=== PATIENT | male | born 1930 | race Caucasian/White ===

== ENCOUNTER 2017-06-27 14:01 | Inpatient (IN) | payer MEDICARE, BC ==
[~2017-06-27] VITALS: Ht 170.2 cm; Wt 82.6 kg
[~2017-06-27 14:01] MED LIST: ACETAMINOPHEN325 M1 PO; AMLODIPINE BESYL5 MG PO; ATORVASTATIN CA20 MG PO; BISACODYL5 MG PO; BISCOLAX10 MG RC; CARAFATE1 GM PO; CLONIDINE HCL0.1 MG PO; CYCLOBENZAPRINE10 MG PO; DOCUSATE SODIU100 M1 PO; FINASTERIDE5 MG PO; FLOMAX0.4 MG PO; HYDRALAZINE HCL10 MG PO; HYDROCODONE/AP1 EACH; ISOSORBIDE MONO30 MG PO; LASIX20 MG PO; LIDODERM700 MG TD; LOSARTAN POTASS25 MG PO; LOVENOX40 MG/0.4 SC; METFORMIN HCL500 MG PO; METOPROLOL SUCC25 MG PO; PEPCID20 MG PO; PLAVIX75 MG PO; PRAMIPEXOLE DIHY1 MG PO; RAPAFLO8 MG PO; REGLAN10 MG PO; TAMSULOSIN HCL0.4 MG PO; TRAMADOL-ACETAMI1 EA PO; TRAZODONE HCL50 MG PO; Z MIRAPEX PO; Z.0.AMLODIPINE BES2. PO; Z.0.ISOSORBIDE MONO3 PO; Z.0.JALYN 0.5-0.41 E; Z.0.LEVOTHYROXINE50 PO; Z.0.LIPITOR20 MG PO; Z.0.METOPROLOL SUCC5 PO; Z.0.PANTOPRAZOLE SO4 PO; Z.0.PLAVIX75 MG PO
--- OUTSIDE RECORDS SUMMARY | 2017-06-27 14:04 | XMS REPORT ---
Author [facility] Address Unknown Phone Unavailable Care Team Providers Care Senior Quality Assurance Specialist Name Role Phone TEETEE DIAS Unavailable Unavailable Problems This patient has no known problems. Allergies, Adverse Reactions, Alerts This patient has no known allergies or adverse reactions. Medications This patient has no known medications. Results Test Description Test Time Test Comments Text Results Atomic Results Result Comments Stress Test - Treadmill ONLY [place] [address] Patient Name : MIS ZAMBRANO MR #: [id number] : 1930 Age/Sex: 86/M Adm Physician : TEETEE DIAS MD Admit Date : Location : [place] Room/Bed : REPORT: Cardiology Report DATE OF STUDY: November 19, 2016 NUCLEAR GAITED MYOCARDIAL PERFUSION SCAN Nuclear gated myocardial perfusion scan performed as per protocol as Nuclear Medicine Lab at [facility]. Lexiscan injected 0.4 mg intravenously as a stress agent. Myoview injected of 10.8 mCi for resting protocol and 32.9 mCi for stress protocol. IMPRESSION: Normal gated myocardial perfusion scan. Left ventricular ejection fraction is 60% to 65%. Normal study. This stress test is supervised by Dr. Teetee Dias. I read only the nuclear part of the stress test. DT : 11/22/2016 16:20 Job#: [id number] Signature Date Dictated By: XAVIER WYNN MD Transcribed By: ARJUN on 11/22/16 < Electronically signed by XAVIER WYNN MD><<Signature on File>>11/24/161925 COPY TO:
--- NOTE | 2017-06-27 14:46 | Diagnostic Imaging Report ---
PROCEDURE: A single AP view of the chest. COMPARISON: Patients [facility], , CHEST SINGLE (PORTABLE), 04/24/2012, 11:19. INDICATIONS: HIGH PULSE, SOB FINDINGS: Lines/tubes: None. Lungs: The lungs are well inflated and clear. There is no evidence of pneumonia or pulmonary edema. Pleura: There is no right pleural effusion or pneumothorax. Slight blunting of the left lateral costophrenic sulcus. Heart and mediastinum: The cardiac silhouette is mildly prominent. Calcification of the aortic arch. Bones: No acute bony abnormality. IMPRESSION: 1. No acute cardiopulmonary disease. Michelle Wilkins M.D. Dictated by: Michelle Wilkins M.D. on 06/27/2017 at 14:48 Electronically approved by: Michelle Wilkins M.D. on 06/27/2017 at 14:48
[2017-06-27 15:47] LABS: BASOPHILS % 0.5 % (0.0-1.0); EOSINOPHILS # (AUTO) 0.2 (0.0-0.4); EOSINOPHILS % 2.6 % (0.0-6.0); HEMATOCRIT 31.1 % (38.2-49.6); LYMPHOCYTES # (AUTO) 0.9 (1.0-3.2); LYMPHOCYTES % 11.1 % (18.0-39.1); MEAN CORPUSCULAR HEMOGLOBIN 33.6 pg (28-32); MEAN CORPUSCULAR HGB CONC 35.4 g/dL (31-35); MEAN CORPUSCULAR VOLUME 95.1 fL (81-99); MONOCYTES # (AUTO) 0.6 (0.2-0.8); MONOCYTES % 7.2 % (4.4-11.3); NEUTROPHILS # (AUTO) 6.1 (2.1-6.9); PLATELET COUNT 197 x10e3/uL (140-360); RED BLOOD COUNT 3.27 x10e6/uL (4.3-5.7)
[2017-06-27] MEDS ORDERED: DILTIAZEM HCL 100 ML IV STA (15:48)
[2017-06-27] MEDS ORDERED: DILTIAZEM HCL 5 MG/ML 5 ML VIAL IV STA (15:48)
[2017-06-27 15:53] LABS: INR 1.07; PROTHROMBIN TIME 13.1 seconds (11.9-14.5)
[2017-06-27] MEDS ORDERED: DILTIAZEM HCL IV 5MG/ML 25 ML VIAL ONE (15:53)
[2017-06-27] MEDS ORDERED: SODIUM CHLORIDE 0.9% 100 ML ONE (15:54)
[2017-06-27 16:03] LABS: ALBUMIN 3.9 g/dL (3.5-5.0); ALBUMIN/GLOBULIN RATIO 1.1 (0.8-2.0); ANION GAP 15.2 mmol/L (8-16); CALCIUM 10.1 mg/dL (8.4-10.2); CREATININE, SERUM 1.94 mg/dL (0.72-1.25); MAGNESIUM 1.9 MG/DL (1.3-2.1); POTASSIUM 4.2 mmol/L (3.5-5.1)
[2017-06-27] MEDS: DILTIAZEM HCL IV SOLN 125 MG in SODIUM CHLORIDE 0.9% 100 ML IV SCH (16:11)
[2017-06-27 16:23] LABS: CREATINE KINASE MB 3.7 ng/mL (0-5.0); THYROID STIMULATING HORMONE 6.269 uIU/mL (0.350-4.940)
[2017-06-27] MEDS ORDERED: DIGOXIN INJ 0.25 MG/ML 2 ML AMP IV ONE (16:30)
[2017-06-27] MEDS ORDERED: ENOXAPARIN SODIUM INJ 100 MG/ML SYR SC SCH (17:00)
[2017-06-27] MEDS: ENOXAPARIN SOD INJ 60 MG/0.6 ML SYR SC SCH (18:15)
--- NOTE | 2017-06-27 23:50 | Consultation ---
DATE OF CONSULTATION: June 27, [address] Carrasco. This is an 86-year-old patient that was seen in the emergency room, where he presented with complaints of weakness and dizziness and found to be in rapid atrial flutter with variable block. The patient has been started on Cardizem and Cardizem drip and he is more comfortable resting since admission. The patient has a long history of sick sinus syndrome with anayeli-tachy arrhythmia. He also has a history of labile hypertension and coronary artery disease requiring stenting in the past. More recently, the patient is having some urinary outlet obstruction and has been followed by Dr. Ordonez and he is wearing a Garcia catheter. The patient also had previous back surgery by Dr. Keen, but continues with weakness, discomfort mainly on the left lower extremity and he is followed at pain clinic. LABORATORY DATA: Mild anemia and elevated creatinine with 1.94, BUN was 34, and the GFR is 33. The glucose also is elevated with 271. The patient's chest x-ray is negative. ALLERGIES: NONE. SOCIAL HISTORY: Negative. FAMILY HISTORY: Noncontributory. REVIEW OF SYSTEMS: Remainder of the systems reviewed. Patient denies any headache or sore throat. The patient denies any cough or sputum production. He denies any chest pain. The patient denies any abdominal pain, nausea, vomiting, diarrhea or constipation. The patient has chronic leg edema and weakness of his left lower extremity. PHYSICAL EXAMINATION VITALS: Blood pressure 110/70. NECK: Carotid pulses are present. CHEST: Clear to auscultation. CARDIOVASCULAR SYSTEM: A normal apical impulse. The rhythm is irregular with a rate of 120 per minute. There is no S3. There is no rub. ABDOMEN: Soft. There is no tenderness, organomegaly. EXTREMITIES: Pulses diminished, but present. There is mild 1 to 2+ edema. NEUROLOGIC: Does not show any motor defect on the right. There is weakness of the left lower extremity. Cranial nerves are intact. IMPRESSIONS 1. Sick sinus syndrome with bradycardia-tachycardia arrhythmia and presentation of rapid atrial flutter with variable block. 2. Coronary artery disease with history of carotid stenting. 3. Labile hypertension. 4. Peripheral neuropathy. 5. Diabetes mellitus. 6. Gastroesophageal reflux disease and irritable bowel syndrome. 7. Hyperlipidemia. 8. Benign prostatic hypertrophy. 9. Chronic low back pain. 10. Restless legs syndrome. Agree with patient the choice of medication. If not successful, we may have to use amiodarone. Also, I would like to give 1 dose of digoxin 0.25 mg. The patient has significant renal insufficiency and Digitalis has to be used cautiously. If the patient does not convert on medical therapy, then we have to also consider the possibility of using electrical cardioversion, which I will require transesophageal echocardiogram to rule out any intraatrial clot of thrombi particular looking at left atrial appendage. However, at the moment, the patient is comfortable and stable and I definitely would recommend to pursue medical therapy including anticoagulation, which also needs to be adjusted because of the patient's renal insufficiency. Thank you very much for letting me see this very nice patient. Job#: [id number] CQ
[2017-06-28] VITALS (47 sets, daily range): BP systolic 85–130; BP diastolic 38–97
[2017-06-28 00:53] LABS: CREATINE KINASE MB 3.4 ng/mL (0-5.0)
[2017-06-28] MEDS: ENOXAPARIN SOD INJ 60 MG/0.6 ML SYR SC SCH ×2 (06:45→17:49)
[2017-06-28 08:05] LABS: BASOPHILS % 0.5 % (0.0-1.0); EOSINOPHILS # (AUTO) 0.3 (0.0-0.4); EOSINOPHILS % 3.1 % (0.0-6.0); LYMPHOCYTES # (AUTO) 1.1 (1.0-3.2); LYMPHOCYTES % 13.2 % (18.0-39.1); MEAN CORPUSCULAR HEMOGLOBIN 33.1 pg (28-32); MEAN CORPUSCULAR HGB CONC 35.5 g/dL (31-35); MEAN CORPUSCULAR VOLUME 93.4 fL (81-99); MONOCYTES # (AUTO) 0.5 (0.2-0.8); MONOCYTES % 6.5 % (4.4-11.3); NEUTROPHILS # (AUTO) 6.2 (2.1-6.9); PLATELET COUNT 172 x10e3/uL (140-360); RED BLOOD COUNT 3.32 x10e6/uL (4.3-5.7); RED CELL DISTRIBUTION WIDTH 12.8 % (11.7-14.4)
[2017-06-28 08:36] LABS: CREATINE KINASE MB 3.6 ng/mL (0-5.0)
[2017-06-28 08:52] LABS: ANION GAP 14.5 mmol/L (8-16); CREATININE, SERUM 1.62 mg/dL (0.72-1.25); MAGNESIUM 1.7 MG/DL (1.3-2.1); POTASSIUM 4.5 mmol/L (3.5-5.1)
[2017-06-28] MEDS: FINASTERIDE 5 MG TAB PO SCH (08:58)
[2017-06-28] MEDS: METFORMIN HCL 500 MG TAB PO SCH ×2 (08:58→17:35)
[2017-06-28] MEDS: CLOPIDOGREL BISULFATE 75 MG TAB PO SCH (08:58)
[2017-06-28] MEDS: ISOSORBIDE MONONITRATE 30 MG TAB CR PO SCH (08:59)
[2017-06-28] MEDS: TAMSULOSIN HCL 0.4 MG CAP PO SCH (08:59)
[2017-06-28] MEDS: METOPROLOL SUCCINATE 25 MG TAB XL PO SCH ×2 (08:59→17:50)
[2017-06-28 09:15] LABS: THYROID STIMULATING HORMONE 5.445 uIU/mL (0.350-4.940)
[2017-06-28 09:31] LABS: CLARITY,URINE CLEAR (CLEAR); COLOR,URINE YELLOW (YELLOW); LEUKOCYTE ESTERASE ,URINE 2+ (NEGATIVE); NITRITE,URINE POSITIVE (NEGATIVE); PROTEIN,URINE DIPSTICK 1+ (NEGATIVE)
[2017-06-28 09:32] LABS: BILIRUBIN,URINE NEGATIVE (NEGATIVE); KETONES,URINE NEGATIVE (NEGATIVE); URINE UROBILINOGEN 0.2 mg/dL (0.2 - 1)
[2017-06-28] MEDS ORDERED: SODIUM CHLORIDE 0.9% 1000ML 1,000 ML IV SCH (09:45)
[2017-06-28 10:13] LABS: BACTERIA,URINE MANY /HPF; EPITHELIAL CELLS,URINE RARE /LPF; WBC,URINE (MAN) >50 /HPF (0-5)
[2017-06-28 10:14] LABS: AMORPHOUS SEDIMENT,URINE FEW (FEW)
[2017-06-28] MEDS ORDERED: DRONEDARONE 400 MG TAB PO SCH (11:00)
[2017-06-28] MEDS ORDERED: HYDRALAZINE HCL 10 MG TAB PO SCH (14:00)
[2017-06-28] MEDS: DILTIAZEM HCL IV SOLN 125 MG in SODIUM CHLORIDE 0.9% 100 ML IV SCH (15:04)
[2017-06-28] MEDS ORDERED: HYDRALAZINE HCL 10 MG TAB PO PRN (18:00)
[2017-06-28] MEDS: FAMOTIDINE 20 MG TAB PO SCH (19:05)
[2017-06-28] MEDS ORDERED: TRAZODONE HCL 50 MG TAB PO PRN (21:00)
[2017-06-28] MEDS: INSULIN DETEMIR 100 UNIT/ML PEN SQ SCH (21:00)
[2017-06-28] MEDS: PRAMIPEXOLE DIHYDROCHLORIDE 1 MG TAB PO SCH (21:08)
[2017-06-28] MEDS: DRONEDARONE 400 MG TAB PO SCH (21:08)
[2017-06-28] MEDS: ATORVASTATIN 20 MG TAB PO SCH (21:08)
[2017-06-29] VITALS (40 sets, daily range): BP systolic 94–143; BP diastolic 47–95
[2017-06-29] MEDS: ENOXAPARIN SOD INJ 60 MG/0.6 ML SYR SC SCH ×2 (05:41→18:14)
[2017-06-29] MEDS: FAMOTIDINE 20 MG TAB PO SCH ×2 (05:41→18:14)
[2017-06-29 06:20] LABS: BASOPHILS % 0.4 % (0.0-1.0); EOSINOPHILS # (AUTO) 0.3 (0.0-0.4); EOSINOPHILS % 2.9 % (0.0-6.0); HEMATOCRIT 30.4 % (38.2-49.6); HEMOGLOBIN 10.4 g/dL (14.0-18.0); LYMPHOCYTES # (AUTO) 1.2 (1.0-3.2); LYMPHOCYTES % 12.9 % (18.0-39.1); MEAN CORPUSCULAR HEMOGLOBIN 32.8 pg (28-32); MEAN CORPUSCULAR HGB CONC 34.2 g/dL (31-35); MEAN CORPUSCULAR VOLUME 95.9 fL (81-99); MONOCYTES # (AUTO) 0.7 (0.2-0.8); MONOCYTES % 7.9 % (4.4-11.3); NEUTROPHILS # (AUTO) 6.8 (2.1-6.9); NEUTROPHILS % 75.3 % (38.7-80.0); PLATELET COUNT 167 x10e3/uL (140-360); RED BLOOD COUNT 3.17 x10e6/uL (4.3-5.7)
[2017-06-29 06:50] LABS: ANION GAP 13.8 mmol/L (8-16); CALCIUM 9.4 mg/dL (8.4-10.2); CREATININE, SERUM 1.66 mg/dL (0.72-1.25); POTASSIUM 4.8 mmol/L (3.5-5.1)
[2017-06-29] MEDS: CLOPIDOGREL BISULFATE 75 MG TAB PO SCH (08:29)
[2017-06-29] MEDS: DRONEDARONE 400 MG TAB PO SCH ×2 (08:29→20:11)
[2017-06-29] MEDS: TAMSULOSIN HCL 0.4 MG CAP PO SCH (08:29)
[2017-06-29] MEDS: FINASTERIDE 5 MG TAB PO SCH (08:30)
[2017-06-29] MEDS: INSULIN DETEMIR 100 UNIT/ML PEN SQ SCH (08:35)
[2017-06-29] MEDS: ISOSORBIDE MONONITRATE 30 MG TAB CR PO SCH (09:00)
[2017-06-29] MEDS ORDERED: DEXTROSE 50% SYRINGE 50 ML IV PRN (11:30)
[2017-06-29] MEDS: INSULIN LISPRO 100 UNIT/1 ML 3ML VIAL SQ SCH ×3 (11:35→20:13)
--- NOTE | 2017-06-29 12:33 | History and Physical ---
PRIMARY CARE PROVIDER: Dr. Hugo Leonardo. CHIEF COMPLAINT: Palpitations. HISTORY OF PRESENT ILLNESS: Mr. Ferreira is an 86-year-old gentleman who presents with palpitations and rapid heart rate for 24 hours. REVIEW OF SYSTEMS: He denies chest pain but does complain of palpitations. He does have some dyspnea with exertion. He denies resting shortness breath or wheezing. He denies sore throat. He denies abdominal pain, nausea, vomiting or melena. Denies dysuria or flank pain. Denies rash or pruritus. Denies joint pain or swelling. He denies bleeding or bruising. He denies headache, vertigo or loss of consciousness. PAST MEDICAL HISTORY: Significant for longstanding hypertension hyperlipidemia and coronary artery disease. CURRENT MEDICATIONS: Norvasc 5 mg twice a day. Lasix 20 mg daily. Losartan 25 mg twice a day. Lipitor 20 mg at bedtime. Plavix 75 mg daily. Proscar 5 mg daily. Hydralazine 10 mg 3 times a day. Imdur 30 mg daily. Metformin 1000 mg twice daily. Metoprolol ER 12.5 mg twice daily. Mirapex 1 mg at bedtime. Flomax 0.4 mg daily. Trazodone 50 mg at bedtime. ALLERGIES: NO KNOWN DRUG ALLERGIES. PAST SURGICAL HISTORY: He had coronary stents placed after an [place] [address] Simmons. He also had an MN and 2 stents placed in 2002 in [place]. At that time, he also had a right renal artery stent placed and he had back surgery 2 years ago. FAMILY HISTORY: Remarkable for hypertension. SOCIAL HISTORY: The patient is . Pashto is his primary language. He does not smoke, drink or use illegal drugs. He is generally independently functioning. PHYSICAL EXAM: PSYCHIATRIC: He is alert and oriented times 3 with normal mood and affect. CONSTITUTIONAL: He has a normal body habitus. Is in no acute distress. VITAL SIGNS: Blood pressure initially 94/55, currently 99/66. Pulse initially 120 and irregularly irregular and currently 70 and irregularly irregular. Respiratory rate 20. O2 sat 98%. Temperature 98.1. HEENT: Head is atraumatic. His eyes are anicteric with clear conjunctivae. Ears nares are without erythema or discharge. Oropharynx is clear. NECK: Is supple with no mass or thyromegaly. LYMPHATIC SYSTEM: He has no palpable cervical, axillary or inguinal adenopathy. CARDIOVASCULAR: His heart has an irregularly irregular rhythm, occasionally tachycardic with no without murmur or extra heart sound. He has no carotid bruit. No peripheral edema. Weak dorsal pedal pulses. RESPIRATORY: Clear to auscultation and percussion with normal respiratory effort. GASTROINTESTINAL: Abdomen is soft without organomegaly, masses or tenderness. He has normal bowel sounds present. CUTANEOUS: Skin is warm and dry to touch with no rash or skin breakdown. MUSCULOSKELETAL: Joints are in normal alignment without erythema or swelling. Has no calf tenderness. NEUROLOGIC: Exam is nonfocal with intact cranial nerves and no motor or sensory deficits. DIAGNOSTIC STUDIES: Chest x-ray shows no acute disease. UA shows greater than 50 white cells, 6 to 10 red cells and many bacteria. His echocardiogram that showed an ejection fraction of 50% to 55%. Chamber sizes appear normal, unofficial reading. His BNP is 80.4. Troponin is 0.031, 0.041. His chemistry initially showed normal electrolytes. CO2 27. Creatinine 1.94. BUN 34 for a GFR of 33. Glucose 271. Calcium 10.1. After hydration overnight. current chemistry shows normal electrolytes. CO2 22. Creatinine 1.62. BUN 29 for a GFR of 41. Calcium 10.0. Glucose 146. Magnesium 1.7. TSH 5.445. Transaminases, bilirubin and alkaline phos are normal. CBC shows a white count of 8.1 with 76% neutrophils. Hemoglobin 11.0, hematocrit 31.0 and platelet count 172,000. Pro time is 13.1 with a normal INR. . IMPRESSION AND PLAN: 1. New onset atrial fibrillation, atrial flutter with rapid ventricular response. The patient is admitted to the ICU. Will do serial cardiac enzymes to rule out myocardial infarction. Check his thyroid function. Will start the patient on IV Cardizem drip for rate control. Multaq also has been started p.o. Cardiology has been consulted and it was their intervention for IV Cardizem and p.o. Multaq. Patient will also be started on weight-based Lovenox q.12 hours. 2. Hypertension complicated by coronary artery disease and chronic kidney disease stage 3. Will continue the patient's metoprolol and Imdur. Will hold the amlodipine and losartan at this time and make the hydralazine as needed. 3. Type 2 diabetes that appears to be reasonably well controlled. Patient will continue on a diabetic diet and sliding scale insulin as noted. Will also put on some Levemir like 15 units twice a day. The type 2 diabetes is complicated by chronic kidney disease stage 3. 4. For prophylaxis, the patient will be on Lovenox for DVT prophylaxis and Pepcid for GI prophylaxis. Job#: [id number] HEIDI
[2017-06-29] MEDS: DILTIAZEM HCL IV SOLN 125 MG in SODIUM CHLORIDE 0.9% 100 ML IV SCH (16:30)
--- NOTE | 2017-06-29 17:54 | Diagnostic Imaging Report ---
PROCEDURE:US RETROPERITONEAL ( KIDNEY ). COMPARISON:Patients [facility], CT, CT ABDOMEN/PELVIS WO, 04/24/2012, 11:53. Patients [facility], MR, MRI SPINE THORACIC WO, 07/21/2016, 14:27. INDICATIONS:CKD TECHNIQUE: Contreras-scale and color sonographic images of the bilateral kidneys and bladder where obtained in transverse and longitudinal planes. FINDINGS: RIGHT KIDNEY: Measures 9.7 cm in length Cysts: None Solid masses: None Stones: None Hydronephrosis: None Echogenicity: Increased LEFT KIDNEY: Measures 10.2 cm in length Cysts: Lower pole unilocular cyst measures 4.9 x 6.2 [address], this measured 7.0 x 8.2 cm. Calcifications identified on CT within the cysts are not visible sonographically. Solid masses: None Stones: None Hydronephrosis: None Echogenicity: Increased Bladder: Bladder around a Garcia catheter Prostate: Not visualized. Survey images of the liver demonstrate no focal abnormality. CONCLUSION: 1. Single cyst in the lower pole of the left kidney has been present since at least 2012. 2. Increased renal echotexture consistent medical renal disease. No hydronephrosis. Dictated by: Que Baxter M.D. on 06/29/2017 at 17:55 Electronically approved by: Que Baxter M.D. on 06/29/2017 at 17:55
--- NOTE | 2017-06-29 18:05 | Diagnostic Imaging Report ---
PROCEDURE: RENAL DOPPLER ULTRASOUND COMPARISON:Patients [facility], US, US RETROPERITONEAL ( KIDNEY )., 06/29/2017, 11:52. INDICATIONS:ATHEROSCLEROSIS OF RENAL ARTERY history of left renal stent placed in 1998 FINDINGS: Multiple sagittal and axial images of the right and left kidneys were obtained. RIGHT KIDNEY: The right kidney measures 9.7 cm. The echotexture is increased There are no masses, hydronephrosis or calculi. The highest right main renal artery PSV is 163 cm/sec. The highest right hilar artery PSV is 51.5 cm/sec. LEFT KIDNEY: The left kidney measures 10.2 cm. The echotexture is increased. There are no masses, hydronephrosis or calculi. The highest left main renal artery PSV is 128 cm/sec. The highest left hilar artery PSV is 88.6 cm/sec. The abdominal aorta PSV is 144 cm/sec. The right renal artery/aorta ratio is 1.1. The left renal artery/aorta ratio is 0.89. The right and left renal veins are patent. The bladder is collapsed right Garcia catheter.. CONCLUSION: No hemodynamically significant renal artery stenosis, although right renal artery velocities are higher than the left. Dictated by: Que Baxter M.D. on 06/29/2017 at 18:06 Electronically approved by: Que Baxter M.D. on 06/29/2017 at 18:06
[2017-06-29] MEDS: PRAMIPEXOLE DIHYDROCHLORIDE 1 MG TAB PO SCH (20:11)
[2017-06-29] MEDS: ATORVASTATIN 20 MG TAB PO SCH (20:11)
[2017-06-30] VITALS (58 sets, daily range): BP systolic 73–138; BP diastolic 43–89
[2017-06-30 06:09] LABS: BASOPHILS # (AUTO) 0.1 (0.0-0.1); BASOPHILS % 0.7 % (0.0-1.0); EOSINOPHILS # (AUTO) 0.3 (0.0-0.4); EOSINOPHILS % 4.2 % (0.0-6.0); HEMATOCRIT 29.4 % (38.2-49.6); HEMOGLOBIN 10.2 g/dL (14.0-18.0); LYMPHOCYTES # (AUTO) 1.1 (1.0-3.2); LYMPHOCYTES % 15.4 % (18.0-39.1); MEAN CORPUSCULAR HGB CONC 34.7 g/dL (31-35); MEAN CORPUSCULAR VOLUME 95.1 fL (81-99); MONOCYTES # (AUTO) 0.6 (0.2-0.8); MONOCYTES % 9.2 % (4.4-11.3); NEUTROPHILS # (AUTO) 4.8 (2.1-6.9); NEUTROPHILS % 70.1 % (38.7-80.0); PLATELET COUNT 164 x10e3/uL (140-360); RED BLOOD COUNT 3.09 x10e6/uL (4.3-5.7); RED CELL DISTRIBUTION WIDTH 12.9 % (11.7-14.4)
[2017-06-30 06:38] LABS: ANION GAP 14.7 mmol/L (8-16); CALCIUM 9.6 mg/dL (8.4-10.2); CREATININE, SERUM 1.71 mg/dL (0.72-1.25); MAGNESIUM 2.3 MG/DL (1.3-2.1); POTASSIUM 4.7 mmol/L (3.5-5.1)
[2017-06-30] MEDS: INSULIN LISPRO 100 UNIT/1 ML 3ML VIAL SQ SCH ×4 (08:04→21:04)
[2017-06-30] MEDS: FAMOTIDINE 20 MG TAB PO SCH ×2 (08:19→17:16)
[2017-06-30] MEDS: TAMSULOSIN HCL 0.4 MG CAP PO SCH (08:19)
[2017-06-30] MEDS: ASPIRIN 81 MG ENTERIC COATED PO SCH (08:19)
[2017-06-30] MEDS: APIXAB 2.5 MG TABLET PO SCH ×2 (08:19→17:16)
[2017-06-30] MEDS: INSULIN DETEMIR 100 UNIT/ML PEN SQ SCH (08:20)
[2017-06-30] MEDS: CLOPIDOGREL BISULFATE 75 MG TAB PO SCH (08:20)
[2017-06-30] MEDS: FINASTERIDE 5 MG TAB PO SCH (08:20)
[2017-06-30] MEDS: DRONEDARONE 400 MG TAB PO SCH ×2 (08:20→20:53)
[2017-06-30] MEDS: ISOSORBIDE MONONITRATE 30 MG TAB CR PO SCH (08:21)
[2017-06-30] MEDS ORDERED: ASPIRIN 325 MG TAB EC PO SCH (09:00)
[2017-06-30] MEDS: DILTIAZEM HCL IV SOLN 125 MG in SODIUM CHLORIDE 0.9% 100 ML IV SCH (11:19)
[2017-06-30] MEDS ORDERED: CYMBALTA30 MG (16:27)
[2017-06-30] MEDS ORDERED: ACETAMINOPHEN 325 MG TAB PO PRN (16:30)
[2017-06-30 19:44] LABS: BILIRUBIN,URINE NEGATIVE (NEGATIVE); CLARITY,URINE TURBID (CLEAR); COLOR,URINE YELLOW (YELLOW); KETONES,URINE NEGATIVE (NEGATIVE); LEUKOCYTE ESTERASE ,URINE 2+ (NEGATIVE); NITRITE,URINE NEGATIVE (NEGATIVE); PROTEIN,URINE DIPSTICK 1+ (NEGATIVE); URINE UROBILINOGEN 0.2 mg/dL (0.2 - 1)
[2017-06-30 19:55] LABS: WBC,URINE (MAN) >50 /HPF (0-5)
[2017-06-30 19:56] LABS: BACTERIA,URINE MANY /HPF; EPITHELIAL CELLS,URINE RARE /LPF; MUCUS,URINE FEW (RARE)
[2017-06-30] MEDS: DULOXETINE HCL 30 MG DELAYED RELEASE PO SCH (20:53)
[2017-06-30] MEDS: ATORVASTATIN 20 MG TAB PO SCH (20:53)
[2017-06-30] MEDS: PRAMIPEXOLE DIHYDROCHLORIDE 1 MG TAB PO SCH (20:53)
[2017-07-01] VITALS (49 sets, daily range): BP systolic 74–147; BP diastolic 48–100
[2017-07-01] MEDS: INSULIN LISPRO 100 UNIT/1 ML 3ML VIAL SQ SCH ×4 (07:28→20:41)
[2017-07-01] MEDS ORDERED: DILTIAZEM HCL IV 5MG/ML 25 ML VIAL ONE (07:59)
[2017-07-01] MEDS: DEXTROSE 5%/0.45% SOD CHL 1,000 ML IV SCH (08:01)
[2017-07-01] MEDS: FAMOTIDINE 20 MG TAB PO SCH ×2 (08:01→17:26)
[2017-07-01] MEDS: APIXAB 2.5 MG TABLET PO SCH ×2 (08:02→17:26)
[2017-07-01] MEDS: TAMSULOSIN HCL 0.4 MG CAP PO SCH (08:02)
[2017-07-01] MEDS: ASPIRIN 81 MG ENTERIC COATED PO SCH (08:02)
[2017-07-01] MEDS: DULOXETINE HCL 30 MG DELAYED RELEASE PO SCH ×2 (08:02→17:26)
[2017-07-01] MEDS: ISOSORBIDE MONONITRATE 30 MG TAB CR PO SCH (08:03)
[2017-07-01] MEDS: DRONEDARONE 400 MG TAB PO SCH ×2 (08:03→20:40)
[2017-07-01] MEDS: FINASTERIDE 5 MG TAB PO SCH (08:03)
[2017-07-01] MEDS: CLOPIDOGREL BISULFATE 75 MG TAB PO SCH (08:03)
[2017-07-01] MEDS: INSULIN DETEMIR 100 UNIT/ML PEN SQ SCH (08:04)
[2017-07-01] MEDS ORDERED: BENZOCAINE 20% SPR 60 ML CAN ONE (12:11)
[2017-07-01] MEDS ORDERED: SODIUM CHLORIDE 0.9% 1000ML 1,000 ML ONE (12:11)
[2017-07-01] MEDS: DILTIAZEM HCL IV SOLN 125 MG in SODIUM CHLORIDE 0.9% 100 ML IV SCH (15:55)
--- NOTE | 2017-07-01 17:35 | Operative Report ---
DATE OF PROCEDURE: July 01, [address] Carrasco. DIAGNOSES 1. Atrial flutter with rapid ventricular rate poorly responding to medical therapy with history of sick sinus syndrome. 2. Coronary artery disease with history of coronary stenting. 3. Chronic kidney disease. 4. Diabetes mellitus. PROCEDURES 1. Transesophageal echocardiogram. 2. Electrical cardioversion with 50 W-s. Consultation was obtained with anesthesia. DETAILS: This 86-year-old patient was taken to the endo room and attended by anesthesia. The anesthesiologist administered esmolol because the patient's heart rate was sustained in 120 beats per minute. He was then prepared for the JU with of the and mouth locally. A mouthpiece was placed and the patient was started on propofol by the anesthesiologist. Transesophageal probe was then advanced easily into the midesophagus and pictures were obtained from the left ventricle, left atrium, right ventricle, tricuspid valve, mitral valve, left atrial appendage, intra-atrial septum, and aortic valve, as well as the right ventricle and thoracic aorta. After, there was no evidence of any intra-atrial clot or thrombus and the left atrial appendage also was free of any clot or thrombus. Patient was in the left lateral position was then placed in the supine position and the defibrillator pads were placed in the anterior posterior location. The patient was still continued on IV sedation. The defibrillator was then activated and synchronised and the chosen joules were 50, which successfully converted the patient. There was some evidence of slow heartbeat in the 40s with sinus and alternating junctional rhythm. Also, patient showed some hypotension with systolic pressure in the 90s and required bolus and infusion of normal saline. Patient's oxygenation remained normal throughout and the patient was attended by the cardiac collaborative physician and anesthesia. Information of the procedure was relayed to the patient's family and he will be returning to the intensive care unit after he is found to be stable and fully awake. Job#: [id number] CQ
[2017-07-01] MEDS ORDERED: ESMOLOL HCL 100MG/10ML 10 MG/ML VIAL ONE (20:12)
[2017-07-01] MEDS: PRAMIPEXOLE DIHYDROCHLORIDE 1 MG TAB PO SCH (20:40)
[2017-07-01] MEDS: ATORVASTATIN 20 MG TAB PO SCH (20:40)
[2017-07-02] VITALS (41 sets, daily range): BP systolic 88–140; BP diastolic 48–93
[2017-07-02] MEDS: DEXTROSE 5%/0.45% SOD CHL 1,000 ML IV SCH (02:05)
[2017-07-02] MEDS: DRONEDARONE 400 MG TAB PO SCH (09:00)
[2017-07-02] MEDS: INSULIN DETEMIR 100 UNIT/ML PEN SQ SCH (09:37)
[2017-07-02] MEDS: FAMOTIDINE 20 MG TAB PO SCH ×2 (09:50→16:28)
[2017-07-02] MEDS: ASPIRIN 81 MG ENTERIC COATED PO SCH (09:50)
[2017-07-02] MEDS: APIXAB 2.5 MG TABLET PO SCH ×2 (09:50→16:28)
[2017-07-02] MEDS: TAMSULOSIN HCL 0.4 MG CAP PO SCH (09:50)
[2017-07-02] MEDS: ISOSORBIDE MONONITRATE 30 MG TAB CR PO SCH (09:50)
[2017-07-02] MEDS: DULOXETINE HCL 30 MG DELAYED RELEASE PO SCH ×2 (09:50→16:28)
[2017-07-02] MEDS: FINASTERIDE 5 MG TAB PO SCH (09:51)
[2017-07-02] MEDS: CLOPIDOGREL BISULFATE 75 MG TAB PO SCH (09:51)
[2017-07-02] MEDS: INSULIN LISPRO 100 UNIT/1 ML 3ML VIAL SQ SCH ×4 (11:30→20:56)
[2017-07-02] MEDS: DILTIAZEM HCL IV SOLN 125 MG in SODIUM CHLORIDE 0.9% 100 ML IV SCH (15:03)
[2017-07-02] MEDS: TRIMETHOPRIM/SULFAMETHOXAZOLE 160-800 MG TAB PO SCH (16:28)
[2017-07-02] MEDS: PIOGLITAZONE HCL 15 MG TAB PO SCH (16:28)
[2017-07-02] MEDS: SITAGLIPTIN 100 MG TAB PO SCH (16:28)
[2017-07-02] MEDS: ATORVASTATIN 20 MG TAB PO SCH (20:53)
[2017-07-02] MEDS: PRAMIPEXOLE DIHYDROCHLORIDE 1 MG TAB PO SCH (20:53)
[2017-07-03] VITALS (38 sets, daily range): BP systolic 100–155; BP diastolic 47–78
[2017-07-03 05:57] LABS: BASOPHILS # (AUTO) 0.1 (0.0-0.1); BASOPHILS % 0.7 % (0.0-1.0); EOSINOPHILS # (AUTO) 0.3 (0.0-0.4); EOSINOPHILS % 5.1 % (0.0-6.0); HEMATOCRIT 25.7 % (38.2-49.6); HEMOGLOBIN 8.8 g/dL (14.0-18.0); LYMPHOCYTES # (AUTO) 0.8 (1.0-3.2); LYMPHOCYTES % 12.6 % (18.0-39.1); MEAN CORPUSCULAR HEMOGLOBIN 33.1 pg (28-32); MEAN CORPUSCULAR HGB CONC 34.2 g/dL (31-35); MEAN CORPUSCULAR VOLUME 96.6 fL (81-99); MONOCYTES # (AUTO) 0.5 (0.2-0.8); MONOCYTES % 8.1 % (4.4-11.3); NEUTROPHILS # (AUTO) 4.9 (2.1-6.9); NEUTROPHILS % 72.8 % (38.7-80.0); PLATELET COUNT 176 x10e3/uL (140-360); RED BLOOD COUNT 2.66 x10e6/uL (4.3-5.7)
[2017-07-03 06:19] LABS: ALBUMIN 3.2 g/dL (3.5-5.0); ALBUMIN/GLOBULIN RATIO 1.1 (0.8-2.0); ANION GAP 11.4 mmol/L (8-16); CALCIUM 9.2 mg/dL (8.4-10.2); CREATININE, SERUM 1.66 mg/dL (0.72-1.25); POTASSIUM 4.4 mmol/L (3.5-5.1)
[2017-07-03] MEDS: INSULIN LISPRO 100 UNIT/1 ML 3ML VIAL SQ SCH ×4 (08:15→21:29)
[2017-07-03] MEDS: ASPIRIN 81 MG ENTERIC COATED PO SCH (08:48)
[2017-07-03] MEDS: FAMOTIDINE 20 MG TAB PO SCH ×2 (08:48→15:39)
[2017-07-03] MEDS: PIOGLITAZONE HCL 15 MG TAB PO SCH (08:48)
[2017-07-03] MEDS: ISOSORBIDE MONONITRATE 30 MG TAB CR PO SCH (08:48)
[2017-07-03] MEDS: TRIMETHOPRIM/SULFAMETHOXAZOLE 160-800 MG TAB PO SCH ×2 (08:48→15:39)
[2017-07-03] MEDS: TAMSULOSIN HCL 0.4 MG CAP PO SCH (08:48)
[2017-07-03] MEDS: DULOXETINE HCL 30 MG DELAYED RELEASE PO SCH ×2 (08:48→16:42)
[2017-07-03] MEDS: APIXAB 2.5 MG TABLET PO SCH ×2 (08:48→16:42)
[2017-07-03] MEDS: FINASTERIDE 5 MG TAB PO SCH (08:49)
[2017-07-03] MEDS: SITAGLIPTIN 100 MG TAB PO SCH (08:49)
[2017-07-03] MEDS: INSULIN DETEMIR 100 UNIT/ML PEN SQ SCH (08:49)
[2017-07-03] MEDS: CLOPIDOGREL BISULFATE 75 MG TAB PO SCH (08:49)
[2017-07-03] MEDS ORDERED: DOCUSATE SODIUM 100 MG CAP PO ONE (12:45)
[2017-07-03] MEDS: PROPAFENONE HCL 150 MG TAB PO SCH ×2 (14:51→22:12)
[2017-07-03] MEDS: DILTIAZEM HCL IV SOLN 125 MG in SODIUM CHLORIDE 0.9% 100 ML IV SCH (16:30)
[2017-07-03] MEDS ORDERED: BISACODYL 5 MG TAB EC PO ONE (21:00)
[2017-07-03] MEDS: ATORVASTATIN 20 MG TAB PO SCH (21:25)
[2017-07-03] MEDS: PRAMIPEXOLE DIHYDROCHLORIDE 1 MG TAB PO SCH (21:25)
[2017-07-04] VITALS (39 sets, daily range): BP systolic 76–158; BP diastolic 50–116
[2017-07-04] MEDS: PROPAFENONE HCL 150 MG TAB PO SCH ×3 (06:05→21:10)
[2017-07-04 06:12] LABS: BASOPHILS # (AUTO) 0.1 (0.0-0.1); BASOPHILS % 0.8 % (0.0-1.0); EOSINOPHILS # (AUTO) 0.4 (0.0-0.4); HEMATOCRIT 26.5 % (38.2-49.6); LYMPHOCYTES # (AUTO) 0.7 (1.0-3.2); LYMPHOCYTES % 10.3 % (18.0-39.1); MEAN CORPUSCULAR HEMOGLOBIN 33.2 pg (28-32); MEAN CORPUSCULAR VOLUME 97.8 fL (81-99); MONOCYTES # (AUTO) 0.6 (0.2-0.8); NEUTROPHILS # (AUTO) 5.4 (2.1-6.9); NEUTROPHILS % 75.2 % (38.7-80.0); PLATELET COUNT 167 x10e3/uL (140-360); RED BLOOD COUNT 2.71 x10e6/uL (4.3-5.7)
[2017-07-04 06:37] LABS: ANION GAP 12.6 mmol/L (8-16); CALCIUM 9.2 mg/dL (8.4-10.2); CREATININE, SERUM 1.64 mg/dL (0.72-1.25); MAGNESIUM 2.3 MG/DL (1.3-2.1); POTASSIUM 4.6 mmol/L (3.5-5.1)
[2017-07-04] MEDS: FAMOTIDINE 20 MG TAB PO SCH ×2 (08:20→16:30)
[2017-07-04] MEDS: TRIMETHOPRIM/SULFAMETHOXAZOLE 160-800 MG TAB PO SCH ×3 (08:20→20:14)
[2017-07-04] MEDS: INSULIN LISPRO 100 UNIT/1 ML 3ML VIAL SQ SCH ×4 (08:30→20:21)
[2017-07-04] MEDS: FINASTERIDE 5 MG TAB PO SCH (09:00)
[2017-07-04] MEDS: CLOPIDOGREL BISULFATE 75 MG TAB PO SCH (09:00)
[2017-07-04] MEDS: ISOSORBIDE MONONITRATE 30 MG TAB CR PO SCH (09:44)
[2017-07-04] MEDS: TAMSULOSIN HCL 0.4 MG CAP PO SCH (09:45)
[2017-07-04] MEDS: SITAGLIPTIN 100 MG TAB PO SCH (09:45)
[2017-07-04] MEDS: DULOXETINE HCL 30 MG DELAYED RELEASE PO SCH ×2 (09:45→17:00)
[2017-07-04] MEDS: PIOGLITAZONE HCL 15 MG TAB PO SCH (09:45)
[2017-07-04] MEDS: INSULIN DETEMIR 100 UNIT/ML PEN SQ SCH (09:45)
[2017-07-04] MEDS: APIXAB 2.5 MG TABLET PO SCH ×2 (09:45→17:00)
[2017-07-04] MEDS: DILTIAZEM HCL IV SOLN 125 MG in SODIUM CHLORIDE 0.9% 100 ML IV SCH (16:30)
[2017-07-04] MEDS: ATORVASTATIN 20 MG TAB PO SCH (20:14)
[2017-07-04] MEDS: PRAMIPEXOLE DIHYDROCHLORIDE 1 MG TAB PO SCH (20:14)
[2017-07-05] VITALS (45 sets, daily range): BP systolic 106–164; BP diastolic 49–128
[2017-07-05] MEDS: PROPAFENONE HCL 150 MG TAB PO SCH ×2 (05:36→17:49)
[2017-07-05] MEDS: INSULIN LISPRO 100 UNIT/1 ML 3ML VIAL SQ SCH ×4 (07:30→21:00)
[2017-07-05] MEDS: FAMOTIDINE 20 MG TAB PO SCH ×2 (07:30→16:30)
[2017-07-05] MEDS: TRIMETHOPRIM/SULFAMETHOXAZOLE 160-800 MG TAB PO SCH ×2 (07:39→20:00)
[2017-07-05] MEDS: SITAGLIPTIN 100 MG TAB PO SCH (09:00)
[2017-07-05] MEDS: APIXAB 2.5 MG TABLET PO SCH (09:00)
[2017-07-05] MEDS: DULOXETINE HCL 30 MG DELAYED RELEASE PO SCH ×2 (09:00→17:00)
[2017-07-05] MEDS: FINASTERIDE 5 MG TAB PO SCH (09:00)
[2017-07-05] MEDS: TAMSULOSIN HCL 0.4 MG CAP PO SCH (09:00)
[2017-07-05] MEDS: ISOSORBIDE MONONITRATE 30 MG TAB CR PO SCH (09:00)
[2017-07-05] MEDS: CLOPIDOGREL BISULFATE 75 MG TAB PO SCH (09:00)
[2017-07-05] MEDS: INSULIN DETEMIR 100 UNIT/ML PEN SQ SCH (09:00)
[2017-07-05] MEDS: PIOGLITAZONE HCL 15 MG TAB PO SCH (09:00)
[2017-07-05] MEDS ORDERED: IRON SUCROSE 100 MG in SODIUM CHLORIDE 0.9% 100 ML 100 ML IV SCH ×2 (10:30→10:45)
[2017-07-05] MEDS ORDERED: MAGNESIUM HYDROXIDE 30 ML UDC PO ONE (10:30)
[2017-07-05] MEDS: DILTIAZEM HCL IV SOLN 125 MG in SODIUM CHLORIDE 0.9% 100 ML IV SCH (16:30)
[2017-07-05] MEDS: PRAMIPEXOLE DIHYDROCHLORIDE 1 MG TAB PO SCH (21:00)
[2017-07-05] MEDS: ATORVASTATIN 20 MG TAB PO SCH (21:00)
--- NOTE | 2017-07-05 21:08 | Consultation ---
DATE OF CONSULTATION: This is for Dr. Chava Carrasco. REASON FOR CONSULTATION: Change Garcia catheter. HISTORY: Patient is a patient of mine with urinary retention, had seen other urologist, was told he needed to keep the catheter for the rest of his life. Came to see me and we have discussed evaluation to determine whether he could have a procedure to implant a lift implant called UroLift into the prostate to help him empty his bladder. While this was planned, the patient was sent for cardiac clearance. One thing has led to another. We found that he has had heart issues. He has been in the hospital now for a week and we have been changing his catheter monthly in the office. His time to change the catheter is up; therefore, I am here to change the catheter. At this point, at bedside, the old catheter was removed and replaced sterilely with another #16 Garcia catheter. I discussed keeping track with my office. The patient will call me once he is out of the hospital, so we can check again in a month to change the catheter. The other issue is that if the patient undergoes a placement of a pacemaker, then, of course, evaluation and treatment of his prostate condition would be further delayed. Job#: [id number] CQ
[2017-07-06] VITALS (42 sets, daily range): BP systolic 89–149; BP diastolic 49–114
[2017-07-06] MEDS: PROPAFENONE HCL 150 MG TAB PO SCH ×2 (06:00→21:25)
[2017-07-06] MEDS: INSULIN LISPRO 100 UNIT/1 ML 3ML VIAL SQ SCH ×3 (07:30→21:15)
[2017-07-06] MEDS: FAMOTIDINE 20 MG TAB PO SCH ×2 (07:30→16:30)
[2017-07-06] MEDS: TRIMETHOPRIM/SULFAMETHOXAZOLE 160-800 MG TAB PO SCH ×2 (07:32→21:15)
[2017-07-06] MEDS: FINASTERIDE 5 MG TAB PO SCH (08:30)
[2017-07-06] MEDS: DULOXETINE HCL 30 MG DELAYED RELEASE PO SCH ×2 (08:31→21:15)
[2017-07-06] MEDS: PIOGLITAZONE HCL 15 MG TAB PO SCH (08:31)
[2017-07-06] MEDS: TAMSULOSIN HCL 0.4 MG CAP PO SCH (08:32)
[2017-07-06] MEDS: ISOSORBIDE MONONITRATE 30 MG TAB CR PO SCH (08:32)
[2017-07-06] MEDS: CLOPIDOGREL BISULFATE 75 MG TAB PO SCH (08:34)
[2017-07-06] MEDS: SITAGLIPTIN 100 MG TAB PO SCH (08:42)
[2017-07-06] MEDS: INSULIN DETEMIR 100 UNIT/ML PEN SQ SCH (08:43)
[2017-07-06] MEDS ORDERED: MIDAZOLAM HCL 2 MG/2 ML VIAL ONE (15:24)
[2017-07-06] MEDS ORDERED: LIDOCAINE HCL 2% LOCAL 20 ML VIAL ONE ×2 (15:25→16:14)
[2017-07-06] MEDS ORDERED: FENTANYL CITRATE/PF 100MCG/2 ML INJ ONE (15:25)
[2017-07-06] MEDS ORDERED: CEFAZOLIN SOD 1 GM VIAL ONE ×2 (15:25→18:40)
[2017-07-06] MEDS ORDERED: SODIUM CHLORIDE 0.9% 1000ML 1,000 ML ONE (15:25)
[2017-07-06] MEDS ORDERED: SODIUM CHLORIDE 0.9% 500ML 500 ML ONE ×2 (15:43→15:45)
[2017-07-06] MEDS ORDERED: BACITRACIN 50,000 UNIT VIAL ONE (15:45)
[2017-07-06] MEDS ORDERED: ATROPINE SULFATE 0.1 MG/ML 10ML SYR ONE (16:14)
[2017-07-06] MEDS ORDERED: ALTEPLASE RECOMBINANT 2 MG/2 ML VIAL ONE (16:29)
[2017-07-06] MEDS: DILTIAZEM HCL IV SOLN 125 MG in SODIUM CHLORIDE 0.9% 100 ML IV SCH (16:30)
[2017-07-06] MEDS ORDERED: HYDROCODONE/APAP 5MG-325MG TAB PO PRN (20:45)
[2017-07-06] MEDS: PRAMIPEXOLE DIHYDROCHLORIDE 1 MG TAB PO SCH (21:15)
[2017-07-06] MEDS: ATORVASTATIN 20 MG TAB PO SCH (21:15)
--- NOTE | 2017-07-06 21:17 | Diagnostic Imaging Report ---
CHEST SINGLE (PORTABLE), 07/06/2017 8:32 PM Technique: CHEST SINGLE (PORTABLE) Comparison: 08/31/2015 Clinical history: New pacemaker Findings: See Impression Impression: 1. Lines/Tubes: Interval placement of left chest wall dual-lead pacer with leads projecting over the right atrium and right ventricle. 2. Stable cardiomediastinal silhouette. 3. No consolidation or edema. No pneumothorax. 4. Nodule projecting over the left lower lung may reflect nipple shadow. Attention on follow-up upright PA and lateral. Signed by: Dr Nidhi Tavarez MD on 07/06/2017 9:14 PM
[2017-07-06] MEDS ORDERED: CEFAZOLIN SOD 1 GM/NS 50ML 50 ML IV SCH (22:00)
[2017-07-06] MEDS: CEFAZOLIN SOD 1 GM VIAL IV SCH (23:33)
[2017-07-07] VITALS (29 sets, daily range): BP systolic 80–137; BP diastolic 35–85
[2017-07-07] MEDS: CEFAZOLIN SOD 1 GM VIAL IV SCH ×2 (05:30→13:22)
[2017-07-07] MEDS: PROPAFENONE HCL 150 MG TAB PO SCH ×2 (05:30→17:14)
--- NOTE | 2017-07-07 05:59 | Diagnostic Imaging Report ---
CHEST SINGLE (PORTABLE), 07/07/2017 5:00 AM Technique: CHEST SINGLE (PORTABLE) Comparison: Previous day Clinical history: Pacemaker Findings: See Impression Impression: 1. Lines/Tubes: Stable left chest wall dual-lead pacer with leads projecting over the right atrium and right ventricle. 2. Stable cardiomediastinal silhouette. 3. Mild bibasilar opacity, favor atelectasis. No pneumothorax. 4. Previously described nodule over the left lateral lung is not seen. Signed by: Dr Nidhi Tavarez MD on 07/07/2017 5:56 AM
[2017-07-07 06:01] LABS: BASOPHILS % 0.4 % (0.0-1.0); EOSINOPHILS # (AUTO) 0.3 (0.0-0.4); EOSINOPHILS % 4.2 % (0.0-6.0); HEMATOCRIT 24.9 % (38.2-49.6); HEMOGLOBIN 8.7 g/dL (14.0-18.0); LYMPHOCYTES # (AUTO) 0.7 (1.0-3.2); LYMPHOCYTES % 10.5 % (18.0-39.1); MEAN CORPUSCULAR HEMOGLOBIN 33.6 pg (28-32); MEAN CORPUSCULAR HGB CONC 34.9 g/dL (31-35); MEAN CORPUSCULAR VOLUME 96.1 fL (81-99); MONOCYTES # (AUTO) 0.7 (0.2-0.8); MONOCYTES % 9.8 % (4.4-11.3); NEUTROPHILS # (AUTO) 5.2 (2.1-6.9); NEUTROPHILS % 74.4 % (38.7-80.0); PLATELET COUNT 167 x10e3/uL (140-360); RED BLOOD COUNT 2.59 x10e6/uL (4.3-5.7); RED CELL DISTRIBUTION WIDTH 13.3 % (11.7-14.4)
[2017-07-07 06:22] LABS: ANION GAP 12.6 mmol/L (8-16); CALCIUM 9.1 mg/dL (8.4-10.2); CREATININE, SERUM 1.89 mg/dL (0.72-1.25); POTASSIUM 4.6 mmol/L (3.5-5.1)
[2017-07-07] MEDS: INSULIN LISPRO 100 UNIT/1 ML 3ML VIAL SQ SCH ×4 (07:30→21:50)
[2017-07-07] MEDS: FAMOTIDINE 20 MG TAB PO SCH ×2 (09:50→17:14)
[2017-07-07] MEDS: TAMSULOSIN HCL 0.4 MG CAP PO SCH (09:51)
[2017-07-07] MEDS: PIOGLITAZONE HCL 15 MG TAB PO SCH (09:51)
[2017-07-07] MEDS: TRIMETHOPRIM/SULFAMETHOXAZOLE 160-800 MG TAB PO SCH ×2 (09:51→21:38)
[2017-07-07] MEDS: ISOSORBIDE MONONITRATE 30 MG TAB CR PO SCH (09:52)
[2017-07-07] MEDS: SITAGLIPTIN 100 MG TAB PO SCH (09:52)
[2017-07-07] MEDS: CLOPIDOGREL BISULFATE 75 MG TAB PO SCH (09:52)
[2017-07-07] MEDS: INSULIN DETEMIR 100 UNIT/ML PEN SQ SCH (09:54)
[2017-07-07] MEDS: DULOXETINE HCL 30 MG DELAYED RELEASE PO SCH ×2 (10:03→17:14)
[2017-07-07] MEDS: FINASTERIDE 5 MG TAB PO SCH (10:04)
--- NOTE | 2017-07-07 16:14 | Operative Report ---
DATE OF PROCEDURE: July 06, 2017 DIAGNOSES 1. Sick sinus syndrome with anayeli-tachy arrhythmia and atrial flutter. 2. Coronary artery disease. 3. Chronic renal insufficiency. 4. Diabetes mellitus. PROCEDURE: Implantation of a permanent transvenous pacemaker supplied by [employer], model is Accolade MRI DR BUSTILLO, model number is L311. DESCRIPTION OF PROCEDURE: This 86-year-old patient was brought to the cardiac catheterization laboratory for insertion of a permanent transvenous pacemaker. After the usual prepping and draping, the patient received moderate sedation with 1 mg of Versed and 25 mcg of fentanyl. The left infraclavicular area was infiltrated with local lidocaine and the left subclavian vein was punctured percutaneously and a guidewire was inserted and positioned at the level of the right atrium under fluoroscopic control. A 2nd puncture site was then selected for the 2nd guidewire. However, when the vein was punctured, the return of the blood flow was sluggish and the guidewire could not be advanced. 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 No further attempt of puncture in any other location of the subclavian vein and rather the procedure was then continued using only a single wire and the usual technique advancing a 2nd guidewire through the sheath and then advancing atrial and ventricular electrode through a 6-Paraguayan venous sheath. At first, the ventricular electrode was advanced into the apex of the right ventricle and after adequate thresholds were obtained, the lead was secured with typical screw-in type mechanism and then secured at the site of the pocket with 2-0 silk suture around the sleeve. The atrial electrode was advanced into the region of the atrial appendage and again under the usual typical screw-in type mechanism, the lead was secured at the level of the right atrial appendage and also secured with 2-0 silk sutures around the sleeve at the right atrium. However, at that time, it was noted that the resistance level was quite high on the atrial electrode. The lead was then inspected under fluoroscopy to see if there was any damage, kink or break and it could not be detected. Continuous testing was obtained; however, the problem was not resolved and did not disappear and therefore another venogram was obtained, which showed patency of the left subclavian vein after installation of 2 units of t-PA previously. At this point, another venipuncture was obtained and the guidewire was inserted and the damaged right atrial electrode was removed from the patient's heart and the pocket. A 7-Paraguayan venous sheath was inserted over the guidewire and a new atrial lead was advanced and positioned in the right atrial appendage without difficulty and again secured at the level of the right atrial appendage after adequate thresholds were obtained. At this point, the venous sheath was peeled off in the usual fashion and removed from the pocket and the atrial electrode was secured with 2-0 silk suture over the sleeve. The pocket was then lavaged with antibiotic solution and the pacemaker generator was connected to the atrioventricular electrode, positioned in the previously prepared pocket and secured with 2-0 silk sutures. The subcutaneous tissue was closed with continuous suture. The skin was closed with interrupted sutures. There were no complications. The procedure was well tolerated. Dressing was then applied. The patient was transferred back to the intensive care unit in stable condition. He had received 1 g of Ancef at the beginning of the procedure and additional 1 g of Ancef at the end of the procedure. The pacemaker was programmed at the lower rate of 60 and the upper tracking rate of 100. The thresholds at the time of implantation were as follows: For the right atrium, the P-wave amplitude was 1.8 mV, stimulation threshold was 1.2 V and the resistance was 506 ohms. For the ventricular lead, R-wave amplitude was 19.1 mV, stimulation threshold was 0.5 V and the resistance was 767 ohms. The unit is a bipolar unit with bipolar electrodes with the unit and the electrodes being MRI compatible. Job#: [id number]
[2017-07-07] MEDS: DILTIAZEM HCL IV SOLN 125 MG in SODIUM CHLORIDE 0.9% 100 ML IV SCH (16:30)
[2017-07-07] MEDS: LACTULOSE SYRUP 20 GM/30 ML UDC PO SCH ×2 (17:14→21:38)
[2017-07-07] MEDS: DOCUSATE SODIUM LIQD 100 MG/10 ML UDC NG SCH (17:14)
[2017-07-07] MEDS: PRAMIPEXOLE DIHYDROCHLORIDE 1 MG TAB PO SCH (21:38)
[2017-07-07] MEDS: ATORVASTATIN 20 MG TAB PO SCH (21:38)
[2017-07-08] VITALS: BP 131/58
[2017-07-08 00:05] VITALS: BP 134/57
[2017-07-08 04:00] VITALS: BP 131/60
[2017-07-08] MEDS: PROPAFENONE HCL 150 MG TAB PO SCH ×2 (06:24→17:55)
[2017-07-08 06:50] LABS: BASOPHILS % 0.5 % (0.0-1.0); EOSINOPHILS # (AUTO) 0.2 (0.0-0.4); HEMATOCRIT 23.9 % (38.2-49.6); HEMOGLOBIN 8.3 g/dL (14.0-18.0); LYMPHOCYTES # (AUTO) 0.6 (1.0-3.2); LYMPHOCYTES % 11.2 % (18.0-39.1); MEAN CORPUSCULAR HEMOGLOBIN 33.7 pg (28-32); MEAN CORPUSCULAR HGB CONC 34.7 g/dL (31-35); MEAN CORPUSCULAR VOLUME 97.2 fL (81-99); MONOCYTES # (AUTO) 0.6 (0.2-0.8); MONOCYTES % 10.3 % (4.4-11.3); NEUTROPHILS % 73.1 % (38.7-80.0); PLATELET COUNT 168 x10e3/uL (140-360); RED BLOOD COUNT 2.46 x10e6/uL (4.3-5.7); RED CELL DISTRIBUTION WIDTH 13.3 % (11.7-14.4)
[2017-07-08 07:02] LABS: ANION GAP 12.5 mmol/L (8-16); CALCIUM 9.5 mg/dL (8.4-10.2); CREATININE, SERUM 1.88 mg/dL (0.72-1.25); POTASSIUM 4.5 mmol/L (3.5-5.1)
[2017-07-08] MEDS: INSULIN LISPRO 100 UNIT/1 ML 3ML VIAL SQ SCH ×3 (07:30→16:30)
[2017-07-08 07:46] VITALS: BP 124/60
[2017-07-08] MEDS: FAMOTIDINE 20 MG TAB PO SCH ×2 (08:30→17:00)
[2017-07-08] MEDS ORDERED: PRAMIPEXOLE DIHYDROCHLORIDE 1 MG TAB PO SCH (09:00)
[2017-07-08] MEDS: DOCUSATE SODIUM LIQD 100 MG/10 ML UDC NG SCH ×2 (09:17→17:55)
[2017-07-08] MEDS: SITAGLIPTIN 100 MG TAB PO SCH (09:17)
[2017-07-08] MEDS: CLOPIDOGREL BISULFATE 75 MG TAB PO SCH (09:17)
[2017-07-08] MEDS: PIOGLITAZONE HCL 15 MG TAB PO SCH (09:17)
[2017-07-08] MEDS: ISOSORBIDE MONONITRATE 30 MG TAB CR PO SCH (09:17)
[2017-07-08] MEDS: DULOXETINE HCL 30 MG DELAYED RELEASE PO SCH ×2 (09:17→17:55)
[2017-07-08] MEDS: TAMSULOSIN HCL 0.4 MG CAP PO SCH (09:17)
[2017-07-08] MEDS: LACTULOSE SYRUP 20 GM/30 ML UDC PO SCH ×3 (09:17→20:21)
[2017-07-08] MEDS: FINASTERIDE 5 MG TAB PO SCH (09:17)
[2017-07-08] MEDS: TRIMETHOPRIM/SULFAMETHOXAZOLE 160-800 MG TAB PO SCH ×2 (09:17→20:21)
[2017-07-08] MEDS: INSULIN DETEMIR 100 UNIT/ML PEN SQ SCH (09:56)
[2017-07-08 11:43] VITALS: BP 130/63
[2017-07-08] MEDS ORDERED: MINERAL OIL 132 ML BTL PR ONE (12:45)
[2017-07-08] MEDS ORDERED: CITRATE OF MAGNESIA 300ML BOTTLE PO ONE (12:45)
[2017-07-08] MEDS ORDERED: DIATRIZOATE MEGL/DIATRIZOA SOD 30 ML BTL PO ONE (14:45)
[2017-07-08] MEDS: DILTIAZEM HCL IV SOLN 125 MG in SODIUM CHLORIDE 0.9% 100 ML IV SCH (16:30)
[2017-07-08 16:34] VITALS: BP 151/66
[2017-07-08] MEDS ORDERED: AMPICILLIN SOD 500 MG in SODIUM CHLORIDE 0.9% 50ML 50 ML IV SCH (18:00)
--- NOTE | 2017-07-08 18:23 | Diagnostic Imaging Report ---
PROCEDURE: CT ABDOMEN AND PELVIS WITHOUT CONTRAST TECHNIQUE: The abdomen and pelvis were scanned utilizing a multidetector helical scanner from the diaphragm to the lesser trochanter after the oral administration of water. No IV contrast was administered per physician's request. Dilute Gastrografin was given as oral contrast. Coronal and sagittal multiplanar reformations were obtained. COMPARISON: Patients [facility], CT, CT ABDOMEN/PELVIS , 04/24/2012, 11:53. INDICATIONS: ABDOMINAL PAIN, OBSTRUCTION FINDINGS: ABSENCE OF INTRAVENOUS CONTRAST DECREASES SENSITIVITY FOR DETECTION OF FOCAL LESIONS AND VASCULAR PATHOLOGY. LOWER THORAX: Distal portion of cardiac wires noted in the right ventricle. Focal pleural thickening in the posterior left lower lobe (series 2, image 6), stable. Stable linear scarring in the anterior left lower lobe (series 2, image 7). HEPATOBILIARY: No focal lesions. No biliary ductal dilation. Gallbladder is unremarkable. SPLEEN: No splenomegaly. Calcified splenic granuloma. PANCREAS: No focal masses or ductal dilatation. ADRENALS: No adrenal nodules. KIDNEYS/URETERS: No hydronephrosis, stones, or solid mass lesions. Interval decrease in size of mostly exophytic 6.8 x 6.0 x 5.5 cm well circumscribed lesion arising from the inferior pole of the left kidney (series 2, image 47), which previously measured 7.0 x 8.2 x 7.3 cm. Relatively stable small linear wall calcification in its posterior aspect (series 2 image 46). The lesion has a trimester density of 23 HU and previously measured fluid density. No other contour abnormalities. PELVIC ORGANS/BLADDER: Bladder is decompressed and there is a Garcia catheter in place. PERITONEUM / RETROPERITONEUM: No free air or fluid. LYMPH NODES: No lymphadenopathy. VESSELS: Atherosclerotic calcification of the abdominal aorta and iliac vessels. Stable stent in the left renal artery. GI TRACT: No bowel dilation or evidence of obstruction. No pericolonic inflammatory changes. Moderate amount of retained stool in the colon. BONES AND SOFT TISSUES: No aggressive lytic lesion. Marked multilevel degenerative disc changes throughout the lower thoracic and lumbosacral spine. Bilateral fat containing inguinal hernias. IMPRESSION: 1. no acute abdominopelvic abnormalities. No bowel dilation or evidence of obstruction. Moderate amount of retained stool in the colon. 2. Interval decrease in size in mostly exophytic minimally complex cystic lesion in the inferior pole of the left kidney, however, now has mild increased density suggesting proteinaceous or hemorrhagic component. This may be further assessed with renal ultrasound. Wellington Overton M.D. Dictated by: Wellington Overton M.D. on 07/08/2017 at 18:24 Electronically approved by: Wellington Overton M.D. on 07/08/2017 at 18:24
[2017-07-08] MEDS: PRAMIPEXOLE DIHYDROCHLORIDE 1 MG TAB PO SCH (20:21)
[2017-07-08] MEDS: ATORVASTATIN 20 MG TAB PO SCH (20:21)
--- NOTE | 2017-07-09 08:18 | Discharge Summary ---
ADMISSION DIAGNOSES 1. New-onset atrial fibrillation and atrial flutter. 2. Hypertension complicated by coronary artery disease and chronic kidney disease, 3. 3. Type 2 diabetes. DISCHARGE DIAGNOSES 1. New-onset atrial fibrillation and atrial flutter. 2. Hypertension complicated by coronary artery disease and chronic kidney disease, 3. 3. Type 2 diabetes. 4. Constipation. Ruled out obstruction. 5. Hyponatremia. 6. Anemia. 7. Urinary tract infection. HISTORY: Patient has a history of hypertension, hyperlipidemia and CAD. Surgical history of coronary stents after an FL in 1998, FL and 2 stents in 2002, and also right renal artery stent placed, as well as back surgery 2 years ago. HOSPITAL COURSE: The patient was initially admitted to ICU after having palpitations and a rapid heart rate for 24 hours. He was found to be in AFib/A-flutter. He was placed on a Cardizem drip for rate control and Multaq p.o. Cardiology consulted and Lovenox q.12 h. started. The patient's home meds of metoprolol and Imdur were started. Amlodipine and losartan were held. Home meds for type 2 diabetes were resumed. On July 01, 2017, the patient had a JU, as well as a cardioversion with Dr. Simmons. On July 06, 2017, the patient had a permanent pacemaker. Chest x-ray on admission was negative. Renal ultrasound on admission showed a single cyst in the lower pole of the left kidney, increased renal echotexture consistent with medical renal disease. No hydronephrosis. The patient was found to have many different Serratia and enterococcus in his urine. He was started on Bactrim and ampicillin. Patient was unable to have a bowel movement throughout hospitalization until the very last day after many methods had to be used. A CT scan was negative to rule out obstruction. He finally had a bowel movement the day of discharge, and was sent to [facility] for physical therapy per his and his 's request. On the day of discharge, WBC was 5.46, hemoglobin 8.3, hematocrit 23.9. Sodium 134, potassium 4.5, GFR of 34, creatinine of 1.88. Patient is afebrile and asymptomatic. He said he is ready to go. He will follow up with primary care after discharge from [facility]. DICTATED BY BERE PEREYRA NP MAURISIO WATKINS MD Job#: [id number] RI
== END 2017-07-08 20:55 | DRG 243 ==
LOC: ER 14:01 → EDBEDREQSVC 19:20 → EDBEDREQ 19:20 → ERHOLD 20:16 → EDBEDREQSVC 06-28 04:15 → ICU 06-28 11:29 → MED/SURG2 07-07 20:50
PROVIDERS: ADMIT Internal Medicine; ATTEND Internal Medicine
PROC: 5A2204Z Restoration of Cardiac Rhythm, Single (ICD-10-PCS; 2017-07-01)
PROC: 0JH606Z Insertion of Pacemaker, Dual Chamber into Chest Subcutaneous Tissue and Fascia, Open Approach (ICD-10-PCS; principal; 2017-07-06)
PROC: 02H63JZ Insertion of Pacemaker Lead into Right Atrium, Percutaneous Approach (ICD-10-PCS; 2017-07-06)
PROC: 02HK3JZ Insertion of Pacemaker Lead into Right Ventricle, Percutaneous Approach (ICD-10-PCS; 2017-07-06)
DX: I49.5 Sick sinus syndrome (principal); I48.92 Unspecified atrial flutter; N39.0 Urinary tract infection, site not specified; E87.1 Hypo-osmolality and hyponatremia; I48.91 Unspecified atrial fibrillation; E11.22 Type 2 diabetes mellitus with diabetic chronic kidney disease; N18.3 Chronic kidney disease, stage 3 (moderate); D64.9 Anemia, unspecified; I25.10 Atherosclerotic heart disease of native coronary artery without angina pectoris; Z95.5 Presence of coronary angioplasty implant and graft; I25.2 Old myocardial infarction; B95.2 Enterococcus as the cause of diseases classified elsewhere; E11.42 Type 2 diabetes mellitus with diabetic polyneuropathy; G25.81 Restless legs syndrome; M54.5 Low back pain; G89.29 Other chronic pain; E78.5 Hyperlipidemia, unspecified; N40.1 Benign prostatic hyperplasia with lower urinary tract symptoms; R33.8 Other retention of urine; K58.9 Irritable bowel syndrome, unspecified; I12.9 Hypertensive chronic kidney disease with stage 1 through stage 4 chronic kidney disease, or unspecified chronic kidney disease
CPT/HCPCS: 36415; 71045; 74176; 76770; 77001; 80048; 80053; 81001; 82550; 82553; 82948; 83735; 83880; 84443; 84484; 85025; 85610; 87086; 87186; 93005; 93306; 93320; 93325; 93976; 96361; 96366; 96372; 97139; 99284; J0690; J1160; J1650; J1756; J2001; J2250; J2997; J7030; J7040; J7050

== ENCOUNTER 2017-08-19 23:35 | Inpatient (IN) | payer MEDICARE, BC ==
[~2017-08-19] VITALS: Ht 167.6 cm; Wt 83.9 kg
[~2017-08-19 23:35] MED LIST changes: +CYMBALTA30 MG
[2017-08-19] MEDS ORDERED: ADENOSINE 6MG/2ML 3 ML ONE (23:45)
[2017-08-19] MEDS ORDERED: SODIUM CHLORIDE 0.9% 500ML 500 ML ONE (23:50)
[2017-08-19] MEDS ORDERED: DILTIAZEM HCL VIAL 5 ML ONE (23:56)
[2017-08-20] VITALS (71 sets, daily range): BP systolic 104–145; BP diastolic 48–99
[2017-08-20] MEDS ORDERED: AMIODARONE HCL 900 MG in DEXTROSE 5% 500ML 500 ML IV STA (00:15)
[2017-08-20] MEDS ORDERED: SODIUM CHLORIDE 0.9% 500ML 500 ML IV ONE (00:15)
[2017-08-20] MEDS ORDERED: AMIODARONE 900MG 500 ML IV ONE ×2 (00:18→00:30)
[2017-08-20 00:23] LABS: BASOPHILS % 0.4 % (0.0-1.0); EOSINOPHILS # (AUTO) 0.2 (0.0-0.4); EOSINOPHILS % 2.3 % (0.0-6.0); HEMATOCRIT 29.1 % (38.2-49.6); HEMOGLOBIN 9.9 g/dL (14.0-18.0); LYMPHOCYTES # (AUTO) 0.9 (1.0-3.2); LYMPHOCYTES % 12.3 % (18.0-39.1); MEAN CORPUSCULAR HEMOGLOBIN 33.4 pg (28-32); MEAN CORPUSCULAR VOLUME 98.3 fL (81-99); MONOCYTES # (AUTO) 0.7 (0.2-0.8); MONOCYTES % 8.6 % (4.4-11.3); NEUTROPHILS # (AUTO) 5.8 (2.1-6.9); NEUTROPHILS % 75.9 % (38.7-80.0); PLATELET COUNT 186 x10e3/uL (140-360); RED BLOOD COUNT 2.96 x10e6/uL (4.3-5.7); RED CELL DISTRIBUTION WIDTH 13.5 % (11.7-14.4)
[2017-08-20] MEDS ORDERED: ADENOSINE 6 MG/2 ML VIAL IV ONE (00:30)
[2017-08-20 00:35] LABS: INR 1.24; PROTHROMBIN TIME 14.7 seconds (11.9-14.5)
[2017-08-20 00:36] LABS: PARTIAL THROMBOPLASTIN TIME 33.4 seconds (23.8-35.5)
[2017-08-20 00:43] LABS: ALBUMIN/GLOBULIN RATIO 1.2 (0.8-2.0); ANION GAP 20.5 mmol/L (8-16); CALCIUM 9.8 mg/dL (8.4-10.2); CREATININE, SERUM 2.22 mg/dL (0.72-1.25); POTASSIUM 4.5 mmol/L (3.5-5.1)
--- NOTE | 2017-08-20 00:53 | Diagnostic Imaging Report ---
CHEST SINGLE (PORTABLE), 08/20/2017 12:05 AM Technique: CHEST SINGLE (PORTABLE) Comparison: 07/07/2017 Clinical history: SVT hypotension Findings: Evaluation is limited by portable AP technique. Impression: 1. Lines/Tubes: Stable left chest wall dual-lead pacer with leads over the right atrium and ventricle. 2. Stable cardiomediastinal silhouette. 3. Mild left basilar opacity, likely atelectasis. 4. Stable blunting of the left costophrenic angle. No pneumothorax. Signed by: Dr Nidhi Tavarez MD on 08/20/2017 12:49 AM
[2017-08-20 01:22] LABS: CREATINE KINASE MB 2.9 ng/mL (0-5.0); THYROID STIMULATING HORMONE 11.971 uIU/mL (0.350-4.940)
[2017-08-20] MEDS ORDERED: DOCUSATE SODIU100 MG PO (01:29)
[2017-08-20] MEDS ORDERED: PRAMIPEXOLE DIHY1 MG PO (01:29)
[2017-08-20] MEDS ORDERED: FERROUS SULFAT325 MG PO (01:29)
[2017-08-20] MEDS ORDERED: LORAZEPAM0.5 MG PO (01:29)
[2017-08-20] MEDS ORDERED: LACTULOSE20 GM/30 M PO (01:29)
[2017-08-20] MEDS ORDERED: MIRAPEX0.25 MG PO (01:29)
[2017-08-20] MEDS ORDERED: XARELTO10 MG PO (01:29)
[2017-08-20] MEDS ORDERED: DILTIAZEM 24HR180 MG PO (01:29)
[2017-08-20 01:40] LABS: BILIRUBIN,URINE NEGATIVE (NEGATIVE); COLOR,URINE YELLOW (YELLOW); KETONES,URINE NEGATIVE (NEGATIVE); LEUKOCYTE ESTERASE ,URINE 2+ (NEGATIVE); NITRITE,URINE POSITIVE (NEGATIVE); PROTEIN,URINE DIPSTICK NEGATIVE (NEGATIVE); URINE UROBILINOGEN 0.2 mg/dL (0.2 - 1)
[2017-08-20 01:41] LABS: CLARITY,URINE CLOUDY (CLEAR)
[2017-08-20 01:51] LABS: BACTERIA,URINE MANY /HPF; EPITHELIAL CELLS,URINE FEW /LPF; MUCUS,URINE FEW (RARE); WBC,URINE (MAN) >50 /HPF (0-5)
[2017-08-20] MEDS: MEROPENEM 1GRAM 1 GM in SODIUM CHLORIDE 0.9% 100 ML 100 ML IV SCH ×2 (02:00→15:16)
[2017-08-20] MEDS ORDERED: AMPICILLIN SOD/SULBACTAM 1.5GM 50 ML IV SCH ×2 (02:00→09:00)
[2017-08-20] MEDS ORDERED: ONDANSETRON HCL INJ 2 MG/ML VIAL IV PRN (02:00)
[2017-08-20] MEDS: FAMOTIDINE 20 MG/2 ML VIAL IV SCH ×2 (02:00→15:02)
[2017-08-20] MEDS ORDERED: DEXTROSE 50% SYRINGE 50 ML IV PRN (02:15)
[2017-08-20] MEDS ORDERED: SODIUM CHLORIDE 0.9% 1000ML 1,000 ML IV ONE (02:15)
[2017-08-20] MEDS ORDERED: MEROPENEM 1 GM VIAL ONE (04:14)
[2017-08-20] MEDS ORDERED: SODIUM CHLORIDE 0.9% 100 ML ONE (04:19)
[2017-08-20 06:15] LABS: BASOPHILS % 0.5 % (0.0-1.0); EOSINOPHILS # (AUTO) 0.2 (0.0-0.4); EOSINOPHILS % 4.3 % (0.0-6.0); HEMOGLOBIN 10.1 g/dL (14.0-18.0); LYMPHOCYTES # (AUTO) 0.6 (1.0-3.2); LYMPHOCYTES % 14.6 % (18.0-39.1); MEAN CORPUSCULAR HEMOGLOBIN 33.3 pg (28-32); MEAN CORPUSCULAR HGB CONC 33.7 g/dL (31-35); MONOCYTES # (AUTO) 0.3 (0.2-0.8); MONOCYTES % 7.8 % (4.4-11.3); NEUTROPHILS # (AUTO) 3.2 (2.1-6.9); NEUTROPHILS % 72.1 % (38.7-80.0); PLATELET COUNT 147 x10e3/uL (140-360); RED BLOOD COUNT 3.03 x10e6/uL (4.3-5.7); RED CELL DISTRIBUTION WIDTH 13.5 % (11.7-14.4)
[2017-08-20 06:26] LABS: MAGNESIUM 1.7 MG/DL (1.3-2.1); PHOSPHORUS 3.7 MG/DL (2.3-4.7)
[2017-08-20 06:27] LABS: ALBUMIN 3.6 g/dL (3.5-5.0); ALBUMIN/GLOBULIN RATIO 1.2 (0.8-2.0); CALCIUM 9.3 mg/dL (8.4-10.2); CREATININE, SERUM 1.67 mg/dL (0.72-1.25)
[2017-08-20 06:43] LABS: CREATINE KINASE MB 2.5 ng/mL (0-5.0)
[2017-08-20] MEDS: INSULIN REGULAR, HUMAN 100 UNIT/1 ML 3ML VIAL SQ SCH ×4 (07:30→20:42)
[2017-08-20] MEDS ORDERED: ENOXAPARIN SOD INJ 40 MG/0.4 ML SYR SC SCH (12:15)
[2017-08-20] MEDS ORDERED: ISOSORBIDE MONONITRATE 30 MG TAB CR PO SCH (14:15)
[2017-08-20] MEDS: DILTIAZEM HCL 180 MG CAP CD PO SCH (14:15)
[2017-08-20] MEDS ORDERED: LORAZEPAM 0.5 MG TAB PO PRN (14:15)
[2017-08-20 14:55] LABS: CREATINE KINASE MB 1.9 ng/mL (0-5.0)
[2017-08-20] MEDS ORDERED: LOSARTAN POTASSIUM 25 MG TAB PO SCH (17:00)
[2017-08-20] MEDS ORDERED: METOPROLOL SUCCINATE 25 MG TAB XL PO SCH (17:00)
--- NOTE | 2017-08-20 17:37 | History and Physical ---
PRIMARY CARE PROVIDER: Dr. Hugo Leonardo. CHIEF COMPLAINT: Rapid heart rate in the 190s to 180s, atrial fibrillation. HISTORY OF PRESENT ILLNESS: Patient is an 87-year-old male who came in with heart rate in the 190s. The patient has atrial fibrillation with rapid rate. At baseline the patient had multiple chronic medical problems. The patient was recently here on June 29, 2017. At that time, he also had palpitations. Patient was treated and subsequently discharged home on July 09. At that time, he was discharged with new onset atrial fibrillation, atrial flutter. Patient's medication was adjusted. Now he came in with a very similar episode. The patient had a permanent pacemaker placed on July 06, 2017. The patient is otherwise stable at this time. PAST MEDICAL HISTORY: Atrial fibrillation with rapid ventricular rate response. Permanent pacemaker. Hypertension. Dyslipidemia. Coronary disease with a previous stent. Recurrent urinary tract infection and diabetes type 2. HOME MEDICATIONS: List is reviewed. He is on Lipitor, Plavix, diltiazem, Colace, Cymbalta, ferrous sulfate, finasteride, Lasix Imdur, Lactulose, lorazepam, losartan, metformin, Meropex, Xarelto and Flomax. ALLERGIES: NO KNOWN DRUG ALLERGIES. PAST SURGICAL HISTORY: Permanent pacemaker in the left chest. Coronary stents. SOCIAL HISTORY: Patient lives at home. He does not smoke or use alcohol. There are no recreational drugs. PHYSICAL EXAMINATION: VITAL SIGNS: Temperature is 98. Blood pressure 118/48. Pulse rate is 192, down now to 103. Atrial fibrillation GENERAL: The patient is not in acute distress. He is awake. HEENT: Normocephalic, atraumatic, anicteric. NECK: Supple grossly. PULMONARY: Diminished breath sounds with minimal wheezing. No rales. CARDIOVASCULAR: S1 and S2. Atrial fibrillation, rapid regular rate. ABDOMEN: Soft. EXTREMITIES: No cyanosis or edema. NEUROLOGIC: There is no gross focal deficit. LABORATORY: WBC 7.7. Hemoglobin is 9.9, hematocrit 29. Platelets 189,000. Chemistry: Sodium 133. Potassium 4, chloride 102, bicarb 22, BUN 32, creatinine 1.7. Glucose is 160. Urinalysis 3+ blood, 2+ leukocyte esterase, many bacteria. Coagulation: INR is 1.2. PTT is 33.4. Microbiology. Urine culture gram-negative bacilli. IMPRESSION: 1. Atrial fibrillation with rapid heart rate. 2. Urinary tract infection. 3. Multiple chronic baseline problems. PLAN: Continue with Dr. Maximiliano Simmons's recommendation. Patient is on amiodarone now. Anticoagulant therapy. Home medications. Antibiotics for urinary tract infection. The patient will continue with treatment. Will repeat the lab work in the morning. Check blood culture if any. Patient is on Lovenox at this time but will stop Lovenox and restart the patient on Xarelto which he was taking previously on home medications. Job#: [id number] GH
[2017-08-20] MEDS: TAMSULOSIN HCL 0.4 MG CAP PO SCH (18:23)
[2017-08-20] MEDS: DULOXETINE HCL 30 MG DELAYED RELEASE PO SCH (18:23)
[2017-08-20] MEDS: ATORVASTATIN 20 MG TAB PO SCH (20:39)
[2017-08-20] MEDS: PRAMIPEXOLE DIHYDROCHLORIDE 1 MG TAB PO SCH (20:39)
[2017-08-20] MEDS ORDERED: RIVAROXABAN 10 MG TABLET PO SCH (21:00)
[2017-08-20] MEDS ORDERED: ACETAMINOPHEN 325 MG TAB PO PRN (21:00)
[2017-08-21] VITALS (90 sets, daily range): BP systolic 73–153; BP diastolic 48–103
[2017-08-21] MEDS: MEROPENEM 1GRAM 1 GM in SODIUM CHLORIDE 0.9% 100 ML 100 ML IV SCH ×2 (01:18→13:45)
[2017-08-21] MEDS ORDERED: AMIODARONE 900MG 500 ML IV PRN (03:45)
--- NOTE | 2017-08-21 06:17 | Diagnostic Imaging Report ---
CHEST SINGLE (PORTABLE), 08/21/2017 5:44 AM Technique: CHEST SINGLE (PORTABLE) Comparison to previous day Clinical history: Follow-up Findings: Evaluation is limited by portable AP technique. Impression: 1. Lines/Tubes: Stable left chest wall dual-lead pacer with leads over the right atrium and ventricle. 2. Stable cardiomediastinal silhouette. 3. Stable trace left basilar atelectasis/scarring with blunting of the costophrenic angle. No pneumothorax. Signed by: Dr Nidhi Tavarez MD on 08/21/2017 6:13 AM
[2017-08-21 06:28] LABS: BASOPHILS # (AUTO) 0.1 (0.0-0.1); EOSINOPHILS # (AUTO) 0.3 (0.0-0.4); EOSINOPHILS % 5.5 % (0.0-6.0); HEMATOCRIT 28.6 % (38.2-49.6); LYMPHOCYTES # (AUTO) 0.9 (1.0-3.2); MEAN CORPUSCULAR HEMOGLOBIN 33.7 pg (28-32); MEAN CORPUSCULAR VOLUME 96.3 fL (81-99); MONOCYTES # (AUTO) 0.5 (0.2-0.8); MONOCYTES % 8.6 % (4.4-11.3); NEUTROPHILS # (AUTO) 3.6 (2.1-6.9); NEUTROPHILS % 67.5 % (38.7-80.0); PLATELET COUNT 173 x10e3/uL (140-360); RED BLOOD COUNT 2.97 x10e6/uL (4.3-5.7); RED CELL DISTRIBUTION WIDTH 13.5 % (11.7-14.4)
[2017-08-21 06:53] LABS: ALBUMIN 3.5 g/dL (3.5-5.0); ALBUMIN/GLOBULIN RATIO 1.1 (0.8-2.0); ANION GAP 12.4 mmol/L (8-16); CALCIUM 10.3 mg/dL (8.4-10.2); CHOL/HDL RATIO 3.1 (3.9-4.7); CREATININE, SERUM 1.38 mg/dL (0.72-1.25); MAGNESIUM 1.5 MG/DL (1.3-2.1); POTASSIUM 4.4 mmol/L (3.5-5.1)
[2017-08-21] MEDS: INSULIN REGULAR, HUMAN 100 UNIT/1 ML 3ML VIAL SQ SCH ×4 (07:30→21:20)
[2017-08-21] MEDS: DOCUSATE SODIUM 100 MG CAP PO SCH (12:00)
[2017-08-21] MEDS: PRAMIPEXOLE DIHYDROCHLORIDE 0.25 MG TAB PO SCH (12:00)
[2017-08-21] MEDS: DILTIAZEM HCL 180 MG CAP CD PO SCH (12:00)
[2017-08-21] MEDS: CLOPIDOGREL BISULFATE 75 MG TAB PO SCH (12:00)
[2017-08-21] MEDS: DULOXETINE HCL 30 MG DELAYED RELEASE PO SCH ×2 (12:00→17:00)
[2017-08-21] MEDS: FINASTERIDE 5 MG TAB PO SCH (12:00)
[2017-08-21] MEDS: METOPROLOL TARTRATE 50 MG TAB PO SCH ×2 (13:40→21:15)
[2017-08-21] MEDS ORDERED: SODIUM CHLORIDE 0.9% 1000ML 1,000 ML ONE (13:50)
[2017-08-21] MEDS: SODIUM CHLORIDE 0.9% 1000ML 1,000 ML IV SCH (14:15)
[2017-08-21] MEDS: TAMSULOSIN HCL 0.4 MG CAP PO SCH (17:08)
--- NOTE | 2017-08-21 18:51 | Diagnostic Imaging Report ---
CHEST 2 VIEWS, 08/21/2017 5:13 PM Technique: CHEST 2 VIEWS Comparison to 08/21/2017 at 5:44 AM hours. Clinical history: Findings: Evaluation is limited by portable AP technique. Impression: 1. Lines/Tubes: Stable dual lead left-sided cardiac pacemaker. 2. Stable cardiomediastinal silhouette. Calcification of the aortic arch. 3. Stable trace left basilar atelectasis/scarring with blunting of the costophrenic angle. No pneumothorax. Signed by: Dr. Michelle Wilkins M.D. on 08/21/2017 6:47 PM
[2017-08-21] MEDS ORDERED: RIVAROXABAN 10 MG TABLET PO SCH (21:00)
[2017-08-21] MEDS: ATORVASTATIN 20 MG TAB PO SCH (21:15)
[2017-08-21] MEDS: PRAMIPEXOLE DIHYDROCHLORIDE 1 MG TAB PO SCH (21:15)
[2017-08-22] VITALS (97 sets, daily range): BP systolic 100–133; BP diastolic 53–102
--- NOTE | 2017-08-22 01:01 | Consultation ---
DATE OF CONSULTATION: This is an 87-year-old patient, who was seen in intensive care unit with rapid atrial flutter. The patient's has called my office earlier complaining that her is weak and lethargic and having low blood pressure. She could not give any information about the pulse or the heart rate indicating that monometer is reporting an error. She was then instructed that the needs to be taken to the emergency room, where he was found to be in rapid atrial flutter. He was given adenosine intravenously and then, diltiazem, which slowed down the patient's heart rate and his blood pressure improved by doing so. The patient is known to have a sick sinus syndrome with anayeli-tachy arrhythmia that required permanent pacemaker recently and has developed atrial flutter with variable block, which has been controlled on metoprolol and diltiazem so far until his presentation to the emergency room. The patient also has been on Xarelto 10 mg daily since he has chronic kidney disease. The patient's past history is that he has hypertensive cardiovascular disease, coronary artery disease with multiple stenting. He also has irritable bowel syndrome and has required surgery for lumbar area by Dr. Keen because of radiculopathy in his left leg, which, apparently, did not improve very much since surgery, and the patient had been on physical therapy and most recently, was released from the [facility]. The patient also has diabetes mellitus, which has been treated with insulin, when he was hospitalized over the [facility] area, but, however, the patient refused to take insulin and went back on metformin 500 mg, taken 1000 mg twice daily. Also, has chronic recurrent urinary tract infection and benign prostatic hypertrophy. He has mild chronic anemia, hyperlipidemia, restless legs syndrome. SOCIAL: Negative. ALLERGIES: NONE KNOWN. REVIEW OF SYSTEMS: Reviewed. Patient denies any chest pain or shortness of breath. The patient actually is unaware of his arrhythmia. He denies any cough or sputum production. The patient denies any abdominal pain, nausea, vomiting, diarrhea, constipation, leg edema. He has chronic left leg pain and weakness and walking with a cane. EXAMINATION VITAL SIGNS: Blood pressure 110/70. He is afebrile. Carotid pulses are present. CHEST: Clear to auscultation. CARDIOVASCULAR: Normal apical impulse. Rhythm is irregularly irregular. Has a rate of 96 per minute. There is no S3. There is no rub. ABDOMEN: Soft. There is no tenderness or organomegaly. EXTREMITIES: Pulses are present. There is no peripheral edema. NEUROLOGIC: No localizing motor defect. IMPRESSIONS 1. Sick sinus syndrome with bradycardia-tachycardia arrhythmia, rapid atrial flutter and permanent pacemaker. 2. Coronary artery disease. 3. Hypertension. 4. Hyperlipidemia. 5. Diabetes mellitus. 6. Hypothyroidism. 7. Anemia. 8. Chronic kidney disease. 9. Restless legs syndrome. PLAN: The patient has been started also on amiodarone, which preferably will be continued. The patient resume anticoagulation. I discussed the patient's situation and recommendations and we should consider ablation for the atrial flutter. In the meantime, it is preferable to keep the patient on Lovenox since his anticoagulation has to be discontinued, when he will go through an ablation procedure. Job#: [id number] CQ
[2017-08-22] MEDS: MEROPENEM 1GRAM 1 GM in SODIUM CHLORIDE 0.9% 100 ML 100 ML IV SCH (02:48)
[2017-08-22] MEDS: METOPROLOL TARTRATE 50 MG TAB PO SCH ×3 (05:19→20:08)
[2017-08-22] MEDS: LEVOTHYROXINE SODIUM 25 MCG TABLET PO SCH (05:19)
[2017-08-22 06:04] LABS: BASOPHILS % 0.7 % (0.0-1.0); EOSINOPHILS # (AUTO) 0.4 (0.0-0.4); HEMATOCRIT 30.5 % (38.2-49.6); HEMOGLOBIN 10.4 g/dL (14.0-18.0); LYMPHOCYTES # (AUTO) 1.2 (1.0-3.2); LYMPHOCYTES % 19.8 % (18.0-39.1); MEAN CORPUSCULAR HEMOGLOBIN 33.8 pg (28-32); MEAN CORPUSCULAR HGB CONC 34.1 g/dL (31-35); MONOCYTES # (AUTO) 0.5 (0.2-0.8); MONOCYTES % 8.7 % (4.4-11.3); NEUTROPHILS # (AUTO) 3.8 (2.1-6.9); NEUTROPHILS % 64.1 % (38.7-80.0); PLATELET COUNT 183 x10e3/uL (140-360); RED BLOOD COUNT 3.08 x10e6/uL (4.3-5.7); RED CELL DISTRIBUTION WIDTH 13.5 % (11.7-14.4)
[2017-08-22 06:27] LABS: ANION GAP 10.6 mmol/L (8-16); CALCIUM 9.6 mg/dL (8.4-10.2); CREATININE, SERUM 1.47 mg/dL (0.72-1.25); MAGNESIUM 1.6 MG/DL (1.3-2.1); POTASSIUM 4.6 mmol/L (3.5-5.1)
[2017-08-22] MEDS: INSULIN REGULAR, HUMAN 100 UNIT/1 ML 3ML VIAL SQ SCH ×4 (07:30→20:42)
[2017-08-22] MEDS: CEFTRIAXONE SOD 1 GM VIAL IV SCH (08:20)
[2017-08-22] MEDS: DOCUSATE SODIUM 100 MG CAP PO SCH (08:36)
[2017-08-22] MEDS: DILTIAZEM HCL 180 MG CAP CD PO SCH (08:36)
[2017-08-22] MEDS: PRAMIPEXOLE DIHYDROCHLORIDE 0.25 MG TAB PO SCH (08:36)
[2017-08-22] MEDS: DULOXETINE HCL 30 MG DELAYED RELEASE PO SCH ×2 (08:36→16:51)
[2017-08-22] MEDS: FINASTERIDE 5 MG TAB PO SCH (08:36)
[2017-08-22] MEDS: CLOPIDOGREL BISULFATE 75 MG TAB PO SCH (08:36)
[2017-08-22] MEDS: SODIUM CHLORIDE 0.9% 1000ML 1,000 ML IV SCH ×2 (13:54→20:07)
[2017-08-22] MEDS: TAMSULOSIN HCL 0.4 MG CAP PO SCH (16:51)
[2017-08-22] MEDS: ATORVASTATIN 20 MG TAB PO SCH (20:35)
[2017-08-22] MEDS: PRAMIPEXOLE DIHYDROCHLORIDE 1 MG TAB PO SCH (20:35)
[2017-08-23] VITALS (88 sets, daily range): BP systolic 65–127; BP diastolic 32–92
[2017-08-23] MEDS: METOPROLOL TARTRATE 50 MG TAB PO SCH ×3 (04:12→20:01)
[2017-08-23] MEDS: LEVOTHYROXINE SODIUM 25 MCG TABLET PO SCH (05:34)
[2017-08-23 05:36] LABS: BASOPHILS % 0.6 % (0.0-1.0); EOSINOPHILS # (AUTO) 0.4 (0.0-0.4); EOSINOPHILS % 6.6 % (0.0-6.0); HEMATOCRIT 28.1 % (38.2-49.6); HEMOGLOBIN 9.6 g/dL (14.0-18.0); LYMPHOCYTES # (AUTO) 1.2 (1.0-3.2); LYMPHOCYTES % 18.9 % (18.0-39.1); MEAN CORPUSCULAR HEMOGLOBIN 33.8 pg (28-32); MEAN CORPUSCULAR HGB CONC 34.2 g/dL (31-35); MEAN CORPUSCULAR VOLUME 98.9 fL (81-99); MONOCYTES # (AUTO) 0.5 (0.2-0.8); MONOCYTES % 7.3 % (4.4-11.3); NEUTROPHILS # (AUTO) 4.1 (2.1-6.9); NEUTROPHILS % 66.4 % (38.7-80.0); PLATELET COUNT 169 x10e3/uL (140-360); RED BLOOD COUNT 2.84 x10e6/uL (4.3-5.7); RED CELL DISTRIBUTION WIDTH 13.5 % (11.7-14.4)
[2017-08-23 05:55] LABS: ANION GAP 12.6 mmol/L (8-16); CALCIUM 9.1 mg/dL (8.4-10.2); CREATININE, SERUM 1.48 mg/dL (0.72-1.25); MAGNESIUM 1.7 MG/DL (1.3-2.1); POTASSIUM 4.6 mmol/L (3.5-5.1)
[2017-08-23 06:19] LABS: FERRITIN 127.41 ng/mL (21.81-274.66)
[2017-08-23] MEDS: CEFTRIAXONE SOD 1 GM VIAL IV SCH (07:30)
[2017-08-23] MEDS: INSULIN REGULAR, HUMAN 100 UNIT/1 ML 3ML VIAL SQ SCH ×4 (07:30→20:03)
[2017-08-23] MEDS: DULOXETINE HCL 30 MG DELAYED RELEASE PO SCH ×2 (08:11→17:00)
[2017-08-23] MEDS: FINASTERIDE 5 MG TAB PO SCH (08:11)
[2017-08-23] MEDS: PRAMIPEXOLE DIHYDROCHLORIDE 0.25 MG TAB PO SCH (08:11)
[2017-08-23] MEDS: DILTIAZEM HCL 180 MG CAP CD PO SCH (09:00)
[2017-08-23] MEDS: CLOPIDOGREL BISULFATE 75 MG TAB PO SCH (09:00)
[2017-08-23] MEDS: COLLAGENASE 5 GM TUBE TOP SCH (09:00)
[2017-08-23] MEDS ORDERED: LIDOCAINE HCL 2% LOCAL 20 ML VIAL ONE ×2 (09:32→10:28)
[2017-08-23] MEDS ORDERED: HEPARIN SOD/SOD CHLORIDE 2,000 ML ONE (09:32)
[2017-08-23] MEDS ORDERED: IOPAMIDOL 370 MG/ML 200 ML INFUS..BTL INJ ONE ×3 (09:32→10:44)
[2017-08-23] MEDS ORDERED: FENTANYL CITRATE/PF 100MCG/2 ML INJ ONE (09:32)
[2017-08-23] MEDS ORDERED: MIDAZOLAM HCL 2 MG/2 ML VIAL ONE (09:32)
[2017-08-23] MEDS ORDERED: SODIUM CHLORIDE 0.9% 1000ML 0 ML ONE (09:33)
[2017-08-23] MEDS: DOCUSATE SODIUM 100 MG CAP PO SCH (14:00)
[2017-08-23] MEDS: TAMSULOSIN HCL 0.4 MG CAP PO SCH (17:00)
--- NOTE | 2017-08-23 19:14 | Operative Report ---
DATE OF PROCEDURE: August 23, 2017 PREOPERATIVE DIAGNOSES: 1. Atrial flutter with variable block up to 2:1 block with heart rates of 190 per minute and ischemic ST changes. 2. Coronary artery disease with history of left main coronary artery stenosis of 40%, as seen on previous cardiac catheterizations in 2010 and coronary artery stenting of the right coronary artery and the left circumflex artery with history of previous myocardial infarction. 3. Hypertensive cardiovascular disease. 4. Sick sinus syndrome with permanent pacemaker. 5. Chronic kidney disease. PROCEDURE: 1. Cardiac catheterization including selective coronary angiogram and left ventricular angiogram. 2. Right groin angiogram. DESCRIPTION OF PROCEDURE: After usual prepping and draping, the right inguinal area was infiltrated with local lidocaine. The right femoral artery was punctured percutaneously and a 6-Prydeinig arterial sheath was placed under modified Seldinger technique. Selective coronary angiography was performed by using modified Jeffry catheters. A 6-Prydeinig angled pigtail catheter was utilized for recording of hemodynamics and left ventricular angiogram in the 30 degree LUGO projection. At the end of the cardiac catheterization, right inguinal angiogram in the LUGO projection was performed to see if closure device was possible. Findings of cardiac catheterization: The left ventricular pressure was 105 mmHg. The aortic pressure was 105/50 mmHg with a mean aortic pressure of 75 mmHg. The left ventricular end-diastolic pressure was elevated with 15 mmHg. There was no gradient across the aortic valve. The left coronary artery showed extensive calcification in the proximal branches. There was a 50% stenosis of the distal left main coronary artery, which was branching out in the LAD in immediate branch and the left circumflex artery. The proximal left anterior descending branch showed a segmental 40% narrowing and some mild plaques in the middle and distal portion. The right coronary artery showed segmental 30% narrowing in the proximal portion. The long coronary stent in the left circumflex artery was normal showing no in-stent stenosis. The right coronary artery showed some proximal 40% narrowing involving the proximal 2 cm of the right coronary artery. The mid right coronary artery showed ectasia of about 2 cm in length. The right coronary stent in the distal portion was free of any stenosis. The posterior descending branch was large and normal. The left ventricular angiogram showed some mild mostly inferior apical hypokinesis with global ejection fraction of 48%. There was 1+ mitral regurgitation. The mitral valve has normal appearance and did not show any evidence of mitral valve prolapse. The right groin angiogram showed normal right external iliac artery and the proximal right femoral profunda branches also were normal. However, the arterial sheath was close to the profunda branch and, therefore, no closure device was utilized. The right femoral arterial sheath was removed and manual compression with the use of hemostatic patch was utilized to achieve hemostasis. Dressing was then applied the patient returned to intensive care unit in stable condition. There were no complications. The procedure was well tolerated. IMPRESSION: 1. Multivessel coronary artery disease with a 50% stenosis of the distal left main coronary artery and patent coronary stents within the left circumflex and right coronary artery. There also was ectasia of the mid portion of the right coronary artery without any evidence of dissection or stenosis. 2. Left ventricular dysfunction with elevated end-diastolic pressure of 50 mmHg and mild inferior apical hypokinesis with global ejection fraction of 48%. RECOMMENDATIONS: To continue medical therapy and close followup on the left main coronary artery disease which has progressed from 40% to 50% over the last 7 years. This all was discussed with the patient and the family and the patient is cleared for ablation procedure for his atrial flutter. Job#: [id number]
[2017-08-23] MEDS: SODIUM CHLORIDE 0.9% 1000ML 1,000 ML IV SCH (20:00)
[2017-08-23] MEDS: ATORVASTATIN 20 MG TAB PO SCH (20:01)
[2017-08-23] MEDS: PRAMIPEXOLE DIHYDROCHLORIDE 1 MG TAB PO SCH (20:02)
[2017-08-24] VITALS (57 sets, daily range): BP systolic 53–134; BP diastolic 37–108
[2017-08-24 03:04] LABS: BASOPHILS % 0.5 % (0.0-1.0); EOSINOPHILS # (AUTO) 0.3 (0.0-0.4); EOSINOPHILS % 5.8 % (0.0-6.0); HEMATOCRIT 25.5 % (38.2-49.6); HEMOGLOBIN 8.7 g/dL (14.0-18.0); LYMPHOCYTES # (AUTO) 0.9 (1.0-3.2); LYMPHOCYTES % 15.9 % (18.0-39.1); MEAN CORPUSCULAR HGB CONC 34.1 g/dL (31-35); MEAN CORPUSCULAR VOLUME 99.6 fL (81-99); MONOCYTES # (AUTO) 0.4 (0.2-0.8); MONOCYTES % 7.4 % (4.4-11.3); NEUTROPHILS # (AUTO) 3.9 (2.1-6.9); NEUTROPHILS % 69.9 % (38.7-80.0); PLATELET COUNT 156 x10e3/uL (140-360); RED BLOOD COUNT 2.56 x10e6/uL (4.3-5.7); RED CELL DISTRIBUTION WIDTH 13.5 % (11.7-14.4)
[2017-08-24 03:28] LABS: ANION GAP 12.5 mmol/L (8-16); CALCIUM 8.6 mg/dL (8.4-10.2); CREATININE, SERUM 1.36 mg/dL (0.72-1.25); MAGNESIUM 1.9 MG/DL (1.3-2.1); POTASSIUM 4.5 mmol/L (3.5-5.1)
[2017-08-24] MEDS: METOPROLOL TARTRATE 50 MG TAB PO SCH ×2 (04:46→12:40)
[2017-08-24] MEDS: LEVOTHYROXINE SODIUM 25 MCG TABLET PO SCH (05:25)
[2017-08-24] MEDS: SODIUM CHLORIDE 0.9% 1000ML 1,000 ML IV SCH (05:25)
[2017-08-24] MEDS: CEFTRIAXONE SOD 1 GM VIAL IV SCH (07:45)
[2017-08-24] MEDS: INSULIN REGULAR, HUMAN 100 UNIT/1 ML 3ML VIAL SQ SCH ×2 (07:45→11:56)
[2017-08-24] MEDS: DOCUSATE SODIUM 100 MG CAP PO SCH (09:00)
[2017-08-24] MEDS: FINASTERIDE 5 MG TAB PO SCH (09:00)
[2017-08-24] MEDS: CLOPIDOGREL BISULFATE 75 MG TAB PO SCH (09:00)
[2017-08-24] MEDS: PRAMIPEXOLE DIHYDROCHLORIDE 0.25 MG TAB PO SCH (09:00)
[2017-08-24] MEDS: DULOXETINE HCL 30 MG DELAYED RELEASE PO SCH (09:00)
[2017-08-24] MEDS: COLLAGENASE 5 GM TUBE TOP SCH (13:50)
[2017-08-24] MEDS ORDERED: AMIODARONE HCL200 MG PO (14:22)
[2017-08-24] MEDS ORDERED: METOPROLOL TART50 MG PO (14:22)
[2017-08-24] MEDS ORDERED: CEFTIN PO (14:22)
--- NOTE | 2017-08-25 02:38 | Discharge Summary ---
ADMISSION DIAGNOSES 1. Atrial fibrillation with rapid ventricular response. 2. Urinary tract infection. DISCHARGE DIAGNOSES 1. Atrial fibrillation with rapid ventricular response. 2. Urinary tract infection. 3. Coronary artery disease. 4. Hypertension. 5. Hyperlipidemia. 6. Sick sinus syndrome with bradycardia/tachycardia arrhythmia. 7. Diabetes. 8. Hypothyroidism. 9. Chronic kidney disease. 10. Restless legs syndrome. 11. Anemia. HISTORY: Patient has a history of AFib with RVR, permanent pacemaker, hypertension, dyslipidemia, CAD with previous stent, recurrent UTI, type-2 diabetes. HOSPITAL COURSE: An 87-year-old male comes with in with a heart rate in the 190s. Patient was found to be in AFib/RVR. Patient was recently hospitalized, admitted on June 29, 2017 and discharged on July 09 with a new onset AFib/A-flutter. He had a permanent pacemaker placed on July 06, but returns with similar episode. On admission, patient was started on amiodarone drip and cardiology was consulted. Chest x-ray showed mild left basilar opacity likely atelectasis. Stable blunting of the left costophrenic angle. Patient started on Xarelto, as well as Plavix, amiodarone drip, which was eventually switched to p.o. at the time of discharge and metoprolol 50 q.8. He was only taking 12.5 b.i.d. at home. On August 23, 2017, patient had a heart cath. Patient was found to have multivessel CAD with 50% stenosis of the distal left main coronary artery and patent coronary artery stents within the left circumflex and RCA. Left ventricular dysfunction with elevated end-diastolic pressure of 50 mmHg with a global ejection fraction of 48%. Per cardiology, patient will need an ablation and he is cleared for the ablation per cardiology. The ablation is unable to be done at [facility], so patient will discharge home and follow up at [facility], when the schedule permits. Patient had blood culture, which was negative. Urine culture, which showed E. coli. Patient started on Rocephin IV during hospitalization and switched to Ceftin p.o. upon discharge. On day of discharge, sodium 136, potassium 4.5, GFR of 50, creatinine of 1.36. WBC of 5.65, hemoglobin 8.7, hematocrit 25.5. Vital signs stable. Patient afebrile. Patient will discharge home with family with 1. Amiodarone 200 b.i.d. 2. Metoprolol 50 q.8 p.o. 3. Ceftin 500 b.i.d. for 4 days. He will stop his losartan, metoprolol home dose, and Xarelto. He needs to be off Xarelto to be ready for the ablation, when he gets the call per cardiology. He will continue all other home meds including Plavix and diltiazem. Patient and family understand discharge instruction and agree with discharge plan. Dictated by Suad Humphries NP MAURISIO WATKINS MD Job#: [id number] CQ
[2017-08-25] MEDS ORDERED: DILTIAZEM HCL ER 90MG CAPSULE PO SCH (09:00)
== END 2017-08-24 15:28 | disposition home or self-care (01) | DRG 287 ==
LOC: ER 23:35 → ERHOLD 08-20 02:00 → ICU 08-20 02:31
PROVIDERS: ADMIT Internal Medicine; ATTEND Internal Medicine
PROC: 4A023N7 Measurement of Cardiac Sampling and Pressure, Left Heart, Percutaneous Approach (ICD-10-PCS; principal; 2017-08-23)
PROC: B2111ZZ Fluoroscopy of Multiple Coronary Arteries using Low Osmolar Contrast (ICD-10-PCS; 2017-08-23)
PROC: B2151ZZ Fluoroscopy of Left Heart using Low Osmolar Contrast (ICD-10-PCS; 2017-08-23)
PROC: B3101ZZ Fluoroscopy of Thoracic Aorta using Low Osmolar Contrast (ICD-10-PCS; 2017-08-23)
DX: I48.91 Unspecified atrial fibrillation (principal); N39.0 Urinary tract infection, site not specified; E11.22 Type 2 diabetes mellitus with diabetic chronic kidney disease; E11.65 Type 2 diabetes mellitus with hyperglycemia; I12.9 Hypertensive chronic kidney disease with stage 1 through stage 4 chronic kidney disease, or unspecified chronic kidney disease; N18.9 Chronic kidney disease, unspecified; G25.81 Restless legs syndrome; E03.9 Hypothyroidism, unspecified; Z79.4 Long term (current) use of insulin; B96.20 Unspecified Escherichia coli [E. coli] as the cause of diseases classified elsewhere; N40.0 Benign prostatic hyperplasia without lower urinary tract symptoms
CPT/HCPCS: 36415; 71045; 71046; 80048; 80053; 80061; 81001; 82550; 82553; 82607; 82728; 82746; 82948; 83036; 83540; 83605; 83735; 83880; 84100; 84443; 84466; 84484; 85025; 85610; 85730; 87040; 87086; 87186; 93005; 93306; 93458; 96361; 96366; 99284; C1769; J0153; J0295; J0696; J2001; J2185; J2250; J7030; J7040; J7050; Q9967

== ENCOUNTER 2017-11-30 12:48 | Observation (INO) | payer MEDICARE, BC ==
[~2017-11-30] VITALS: Ht 167.6 cm; Wt 82.3 kg
[~2017-11-30 12:48] MED LIST changes: +AMIODARONE HCL200 MG PO; +CEFTIN PO; +DILTIAZEM 24HR180 MG PO; +DOCUSATE SODIU100 MG PO; +FERROUS SULFAT325 MG PO; +LACTULOSE20 GM/30 M PO; +LORAZEPAM0.5 MG PO; +METOPROLOL TART50 MG PO; +MIRAPEX0.25 MG PO; +XARELTO10 MG PO
[2017-11-30 13:29] LABS: BASOPHILS % 0.4 % (0.0-1.0); EOSINOPHILS # (AUTO) 0.2 (0.0-0.4); EOSINOPHILS % 2.5 % (0.0-6.0); HEMATOCRIT 28.8 % (38.2-49.6); HEMOGLOBIN 10.1 g/dL (14.0-18.0); LYMPHOCYTES # (AUTO) 0.9 (1.0-3.2); LYMPHOCYTES % 12.9 % (18.0-39.1); MEAN CORPUSCULAR HEMOGLOBIN 34.1 pg (28-32); MEAN CORPUSCULAR HGB CONC 35.1 g/dL (31-35); MEAN CORPUSCULAR VOLUME 97.3 fL (81-99); MONOCYTES # (AUTO) 0.4 (0.2-0.8); MONOCYTES % 5.8 % (4.4-11.3); NEUTROPHILS # (AUTO) 5.6 (2.1-6.9); NEUTROPHILS % 77.6 % (38.7-80.0); PLATELET COUNT 182 x10e3/uL (140-360); RED BLOOD COUNT 2.96 x10e6/uL (4.3-5.7); RED CELL DISTRIBUTION WIDTH 13.6 % (11.7-14.4)
[2017-11-30 13:35] LABS: INR 0.93; PROTHROMBIN TIME 13.3 seconds (11.9-14.5)
[2017-11-30 13:36] LABS: PARTIAL THROMBOPLASTIN TIME 28.7 seconds (23.8-35.5)
[2017-11-30 13:43] LABS: ALBUMIN 3.9 g/dL (3.5-5.0); ALBUMIN/GLOBULIN RATIO 1.2 (0.8-2.0); ANION GAP 16.5 mmol/L (8-16); CREATININE, SERUM 1.94 mg/dL (0.72-1.25); POTASSIUM 4.5 mmol/L (3.5-5.1)
[2017-11-30 13:49] LABS: CREATINE KINASE MB 2.7 ng/mL (0-5.0)
[2017-11-30 13:54] LABS: BILIRUBIN,URINE NEGATIVE (NEGATIVE); CLARITY,URINE SL CLOUDY (CLEAR); COLOR,URINE YELLOW (YELLOW); KETONES,URINE NEGATIVE (NEGATIVE); LEUKOCYTE ESTERASE ,URINE TRACE (NEGATIVE); NITRITE,URINE NEGATIVE (NEGATIVE); PROTEIN,URINE DIPSTICK NEGATIVE (NEGATIVE); URINE UROBILINOGEN 0.2 mg/dL (0.2 - 1)
[2017-11-30 13:55] LABS: WBC,URINE (MAN) 0-5 /HPF (0-5)
[2017-11-30 13:56] LABS: EPITHELIAL CELLS,URINE FEW /LPF; YEAST,URINE MODERATE
--- NOTE | 2017-11-30 14:11 | Diagnostic Imaging Report ---
Examination: Single AP view of the chest. COMPARISON: August 21, 2017 INDICATION: Chest pain DISCUSSION: Lines/tubes: Dual-lead pacemaker with leads overlying the right atrial appendage and right ventricle. Lungs: The lungs are well inflated and clear. No pneumonia or pulmonary edema. Pleura: No pleural effusion or pneumothorax. Heart and mediastinum: The heart and the mediastinum are unremarkable. Bones and soft tissues: No acute bony abnormalities. IMPRESSION: 1. No acute cardiopulmonary abnormalities. Signed by: Dr. Keshav Ramos M.D. on 11/30/2017 2:08 PM
[2017-11-30] MEDS: SODIUM CHLORIDE 0.9% 1000ML 1,000 ML IV SCH (15:10)
[2017-11-30] MEDS ORDERED: ONDANSETRON HCL INJ 2 MG/ML VIAL IV PRN (15:15)
[2017-11-30] MEDS ORDERED: DEXTROSE 50% SYRINGE 50 ML IV PRN (15:15)
[2017-11-30] MEDS ORDERED: PROTONIX40 MG/ML PO (15:55)
[2017-11-30] MEDS ORDERED: PROPAFENONE HC325 MG PO (15:55)
[2017-11-30] MEDS ORDERED: SPIRONOLACTONE25 MG PO (15:55)
[2017-11-30] MEDS ORDERED: METOPROLOL SUCC25 MG PO (15:55)
[2017-11-30] MEDS ORDERED: LEVOTHYROXINE50 MCG PO (15:55)
[2017-11-30 16:27] VITALS: BP 167/70
[2017-11-30] MEDS: INSULIN REGULAR, HUMAN 100 UNIT/1 ML 3ML VIAL SQ SCH ×2 (16:30→20:48)
[2017-11-30] MEDS ORDERED: DOCUSATE SODIU100 MG PO (17:06)
[2017-11-30 17:15] VITALS: BP 167/70
[2017-11-30 20:00] VITALS: BP 141/67
[2017-11-30 23:45] LABS: CREATINE KINASE MB 2.2 ng/mL (0-5.0)
[2017-12-01] VITALS: BP 153/82
--- NOTE | 2017-12-01 01:45 | Consultation ---
DATE OF CONSULTATION: November 30, 2017 HPI: This 87-year-old patient was brought to the emergency room after his contacted Dr. Andres Ordonez that he was unable to urinate. The also called my office complaining about being extremely weak, unable to stand up and having episode of hypotension. The patient does have a history of labile hypertension and urinary retention. Most recently, the patient was seen in the emergency room because of severe hematuria and was given Keflex. Three days ago, the patient was seen by Dr. Ordonez and his Garcia catheter was discontinued. He was closely observed and was able to urinate until today. The patient does have benign prostatic hypertrophy and is awaiting surgical procedure. PAST HISTORY: Reveals that he has coronary artery disease with previous stenting of the right coronary artery and left circumflex artery. He has a history of peptic dyspepsia, GERD, and colitis. He has a history of sick sinus syndrome with anayeli-tachy arrhythmia, paroxysmal atrial flutter and fibrillation and required a permanent pacemaker. Patient also has sleep apnea; he is on CPAP. He has renovascular hypertension with left renal stent, diabetes mellitus, and hypothyroidism. He has a history of spinal stenosis, required lumbar laminectomy; however, he continues with left leg pain and weakness and has restless legs syndrome. He also has hyperlipidemia. He required ablation of atrial flutter in August 2017. He has chronic kidney disease stage 4 and chronic anemia. ALLERGIES: BENICAR, LYRICA, HEADACHES WITH NITROGLYCERIN, AND SKELAXIN. SOCIAL HISTORY: Negative. FAMILY HISTORY: Noncontributory. REVIEW OF SYSTEMS: The patient denies any headache or sore throat. The patient denies any cough or sputum production. He denies any chest pain. He has no abdominal pain. Patient has some chronic leg edema and weakness of the left lower extremity. PHYSICAL EXAMINATION VITAL SIGNS: Blood pressure which was 160/80 initially and then settled at 133/68 during my examination. He is afebrile. NECK: Carotid pulses are present. CHEST: Clear to auscultation. CARDIOVASCULAR SYSTEM: There is a normal apical impulse. The rhythm is regular. First and second are normal. There is no S3. There is no rub. First and second heart sounds are normal. Patient's thorax showed pacemaker in place in the left infraclavicular area without any evidence of infection. ABDOMEN: Soft. No tenderness or organomegaly. EXTREMITIES: Pulses are diminished but present. There is 1+ edema. NEUROLOGIC: Weakness of the left lower extremity. IMPRESSIONS 1. Labile hypertension with episode of severe hypertension. 2. Benign prostatic hypertrophy with recurrent urinary retention and hematuria. 3. Diabetes mellitus. 4. Coronary artery disease. 5. Chronic kidney disease stage 4. 6. Chronic anemia. 7. Sick sinus syndrome with history of ablation for atrial flutter and permanent pacemaker. 8. Hypothyroidism. 9. Restless legs syndrome. PLAN: The patient's blood pressure has been stable since admission in the supine position. We will await the recommendation by Dr. Ordonez. The patient's also indicates that he has been hallucinating and has shown some confusion with insomnia during the last 24 hours, mostly apparent the night prior to his admission. Thank you very much for letting me see this very nice patient. We will follow with you. Job#: [id number]
[2017-12-01 04:00] VITALS: BP 133/72
[2017-12-01 05:44] LABS: BASOPHILS % 0.4 % (0.0-1.0); EOSINOPHILS # (AUTO) 0.2 (0.0-0.4); EOSINOPHILS % 4.3 % (0.0-6.0); HEMATOCRIT 25.4 % (38.2-49.6); HEMOGLOBIN 8.9 g/dL (14.0-18.0); LYMPHOCYTES % 19.3 % (18.0-39.1); MEAN CORPUSCULAR HEMOGLOBIN 33.8 pg (28-32); MEAN CORPUSCULAR VOLUME 96.6 fL (81-99); MONOCYTES # (AUTO) 0.4 (0.2-0.8); MONOCYTES % 6.9 % (4.4-11.3); NEUTROPHILS # (AUTO) 3.7 (2.1-6.9); NEUTROPHILS % 68.2 % (38.7-80.0); PLATELET COUNT 141 x10e3/uL (140-360); RED BLOOD COUNT 2.63 x10e6/uL (4.3-5.7); RED CELL DISTRIBUTION WIDTH 13.7 % (11.7-14.4)
[2017-12-01] MEDS: SODIUM CHLORIDE 0.9% 1000ML 1,000 ML IV SCH (05:58)
[2017-12-01 06:10] LABS: ANION GAP 12.6 mmol/L (8-16); CALCIUM 9.3 mg/dL (8.4-10.2); CREATININE, SERUM 1.62 mg/dL (0.72-1.25); POTASSIUM 4.6 mmol/L (3.5-5.1)
[2017-12-01 06:21] LABS: CREATINE KINASE MB 1.7 ng/mL (0-5.0)
[2017-12-01 08:00] VITALS: BP 162/68
[2017-12-01] MEDS: INSULIN REGULAR, HUMAN 100 UNIT/1 ML 3ML VIAL SQ SCH ×4 (08:00→20:31)
[2017-12-01] MEDS ORDERED: PROPAFENONE HCL SR 325 MG CAPCR PO SCH (10:15)
[2017-12-01] MEDS ORDERED: ISOSORBIDE MONONITRATE 30 MG TAB CR PO SCH (11:00)
[2017-12-01] MEDS: DOCUSATE SODIUM 100 MG CAP PO SCH (11:30)
[2017-12-01] MEDS: PRAMIPEXOLE DIHYDROCHLORIDE 1 MG TAB PO SCH (11:30)
[2017-12-01] MEDS: PROPAFENONE HCL 150 MG TAB PO SCH ×2 (11:30→21:00)
[2017-12-01] MEDS: FINASTERIDE 5 MG TAB PO SCH (11:30)
[2017-12-01] MEDS: PANTOPRAZOLE SOD 40 MG TABEC PO SCH (11:30)
[2017-12-01] MEDS: SPIRONOLACTONE 25 MG TAB PO SCH (11:30)
[2017-12-01] MEDS: FUROSEMIDE 20 MG TAB PO SCH (11:30)
[2017-12-01] MEDS: DULOXETINE HCL 30 MG DELAYED RELEASE PO SCH ×2 (11:30→17:00)
[2017-12-01] MEDS: TAMSULOSIN HCL 0.4 MG CAP PO SCH (11:30)
[2017-12-01 12:00] VITALS: BP 149/63
[2017-12-01] MEDS ORDERED: SODIUM CHLORIDE 0.9% 1000ML 1,000 ML IV ONE (13:22)
[2017-12-01] MEDS ORDERED: FLUCONAZOLE 200 MG/100 ML 100 ML IV SCH (13:30)
[2017-12-01] MEDS ORDERED: LORAZEPAM 0.5 MG TAB PO SCH (14:00)
[2017-12-01] MEDS ORDERED: FLUCONAZOLE 200 MG/100 ML 100 ML IV ONE (14:00)
[2017-12-01 16:00] VITALS: BP 127/60
[2017-12-01] MEDS: FAMOTIDINE 20 MG TAB PO SCH (16:30)
[2017-12-01] MEDS ORDERED: METFORMIN HCL 500 MG TAB PO SCH ×2 (17:00)
[2017-12-01] MEDS: METOPROLOL SUCCINATE 25 MG TAB XL PO SCH (17:00)
[2017-12-01] MEDS ORDERED: LORAZEPAM 0.5 MG TAB PO PRN (17:00)
--- NOTE | 2017-12-01 19:09 | Diagnostic Imaging Report ---
Exam: Head CT without contrast Indication: Weakness Comparison: None Technique: Axial images were obtained from the skull base to the vertex. Coronal and sagittal images reconstructed from the axial data. Dose modulation, iterative reconstruction, and/or weight based adjustment of the mA/kV was utilized to reduce the radiation dose to as low as reasonably achievable. Intravenous contrast: None Findings: Scalp/skull: No abnormalities. Extra-axial spaces: No masses. No fluid collections. Brain sulci: Mildly prominent. Ventricles: Mild compensatory dilatation. No hydrocephalus. Parenchyma: Nonspecific patchy hypodensities in the supratentorial white matter are small vessel ischemic changes. No masses, hemorrhage, acute or chronic cortical vascular insults. Sellar/suprasellar region: No abnormalities. Craniocervical junction: Patent foramen magnum. No Chiari one malformation. Incidental findings: Atherosclerotic calcifications in the carotid siphons . Bilateral lens implants. Impression: No acute abnormalities. Chronic findings: 1. Mild generalized volume loss. 2. Mild supratentorial white matter small vessel ischemic changes. A preliminary report was provided by Dr. Sorto on 12/01/2017 7:08 PM. I have reviewed the images and agree with the findings in the preliminary report. Signed by: Dr. Jami Auguste M.D. on 12/01/2017 8:10 PM
[2017-12-01 20:00] VITALS: BP 136/74
--- NOTE | 2017-12-01 20:36 | Consultation ---
DATE OF CONSULTATION: December 01, 2017 REASON FOR CONSULTATION: Neurogenic bladder. HISTORY: This is an 87-year-old male, who I originally saw in September of 2016 in urinary retention. The problem started after having had a lumbar laminectomy. The patient had been evaluated. Had a urodynamic evaluation that showed that he had uninhibited bladder contraction with incontinence, as well as urinary retention, obviously a urological problem. The patient and I discussed the situation. Was placed on Flomax and Proscar. Underwent urodynamic evaluation that again confirmed the problem of neurogenic bladder. We had discussed that perhaps a diaper is better than the Garcia catheter. If we can make him totally incontinent, but able to empty the bladder completely that will be great. Because of ongoing medical issues since September of last year, we have been changing his Garcia catheter every month. This month, we had an opportunity of sitting down in the office again. We discussed the situation. He expressed that he wanted to see if he could get rid of the catheter. He had noticed more irritation from the catheter than before, although he still feels kind of weak. The patient and I had a long discussion and we removed the Garcia catheter. Discussed placing another catheter in the morning if he could not urinate and he was supposed to come to my office. If he could not urinate, we are going to repeat his urodynamic evaluation and see if the situation was the same. We discussed again that if he was neurogenic that we could make perhaps a transurethral incision of the prostate and that we would see if he could empty the bladder even with incontinence and the patient stated he did not know if he wanted to do that because he did not like to wear diapers. I am in consultation today because the patient called my office yesterday feeling very weak, unable to come to my office to check his postvoid residual and therefore, he was came to the hospital and was admitted to the hospital with hypotension. ALLERGIES: NONE. MEDICATIONS: Flomax, Proscar, amlodipine, atorvastatin, clopidogrel, furosemide, isosorbide, levothyroxine, losartan, metformin, metoprolol, and pramipexole. PAST SURGICAL HISTORY: Lumbar laminectomy, thyroidectomy, pacemaker, and cystoscopy in the office in 2016. He also has had 4 heart stents, and has had 1 left renal stent. PHYSICAL EXAMINATION/UROLOGICAL EXAMINATION: Bilaterally descended atrophic testes. Indwelling Garcia catheter on a normal penis. IMPRESSIONS 1. Urinary retention. 2. Neurogenic bladder. RECOMMENDATION: Indwelling Garcia catheter, leg bag when patient goes home and I will follow him in the office. At the present time, will continue to change the Garcia catheter once a month. Job#: [id number] CQ
[2017-12-01] MEDS ORDERED: ATORVASTATIN 20 MG TAB PO SCH (21:00)
[2017-12-01] MEDS ORDERED: PRAMIPEXOLE DIHYDROCHLORIDE 1 MG TAB PO SCH (21:00)
[2017-12-02] VITALS: BP 137/81
[2017-12-02 04:00] VITALS: BP 122/68
[2017-12-02] MEDS ORDERED: LEVOTHYROXINE SODIUM 50 MCG TAB PO SCH (06:00)
[2017-12-02 06:01] LABS: ANION GAP 14.6 mmol/L (8-16); CALCIUM 9.5 mg/dL (8.4-10.2); CREATININE, SERUM 1.71 mg/dL (0.72-1.25); MAGNESIUM 1.7 MG/DL (1.3-2.1); POTASSIUM 4.6 mmol/L (3.5-5.1)
[2017-12-02 06:08] LABS: BASOPHILS % 0.6 % (0.0-1.0); EOSINOPHILS # (AUTO) 0.3 (0.0-0.4); EOSINOPHILS % 3.6 % (0.0-6.0); HEMATOCRIT 26.3 % (38.2-49.6); HEMOGLOBIN 9.1 g/dL (14.0-18.0); LYMPHOCYTES # (AUTO) 1.1 (1.0-3.2); MEAN CORPUSCULAR HEMOGLOBIN 33.8 pg (28-32); MEAN CORPUSCULAR HGB CONC 34.6 g/dL (31-35); MEAN CORPUSCULAR VOLUME 97.8 fL (81-99); MONOCYTES # (AUTO) 0.5 (0.2-0.8); MONOCYTES % 7.4 % (4.4-11.3); NEUTROPHILS # (AUTO) 4.9 (2.1-6.9); NEUTROPHILS % 71.2 % (38.7-80.0); PLATELET COUNT 167 x10e3/uL (140-360); RED BLOOD COUNT 2.69 x10e6/uL (4.3-5.7); RED CELL DISTRIBUTION WIDTH 13.9 % (11.7-14.4)
[2017-12-02 06:23] LABS: FERRITIN 92.1 ng/mL (21.81-274.66); FREE T4 (FREE THYROXINE) 0.93 ng/dL (0.9-1.8); THYROID STIMULATING HORMONE 5.203 uIU/mL (0.350-4.940)
[2017-12-02] MEDS: INSULIN REGULAR, HUMAN 100 UNIT/1 ML 3ML VIAL SQ SCH ×3 (07:30→16:30)
[2017-12-02 08:00] VITALS: BP 133/74
[2017-12-02] MEDS ORDERED: PRAMIPEXOLE DIHYDROCHLORIDE 0.25 MG TAB PO SCH (09:00)
[2017-12-02] MEDS ORDERED: FLUCONAZOLE 100 MG TAB PO SCH (09:00)
[2017-12-02] MEDS: FINASTERIDE 5 MG TAB PO SCH (09:23)
[2017-12-02] MEDS: PROPAFENONE HCL 150 MG TAB PO SCH (09:23)
[2017-12-02] MEDS: FAMOTIDINE 20 MG TAB PO SCH (09:23)
[2017-12-02] MEDS: TAMSULOSIN HCL 0.4 MG CAP PO SCH (09:23)
[2017-12-02] MEDS: PANTOPRAZOLE SOD 40 MG TABEC PO SCH (09:23)
[2017-12-02] MEDS: SPIRONOLACTONE 25 MG TAB PO SCH ×2 (09:23→12:09)
[2017-12-02] MEDS: FUROSEMIDE 20 MG TAB PO SCH ×2 (09:23→12:09)
[2017-12-02] MEDS: PRAMIPEXOLE DIHYDROCHLORIDE 1 MG TAB PO SCH (09:23)
[2017-12-02] MEDS: DOCUSATE SODIUM 100 MG CAP PO SCH (09:23)
[2017-12-02] MEDS: DULOXETINE HCL 30 MG DELAYED RELEASE PO SCH (09:23)
[2017-12-02] MEDS: METOPROLOL SUCCINATE 25 MG TAB XL PO SCH (09:24)
--- NOTE | 2017-12-02 09:31 | Diagnostic Imaging Report ---
Exam: Lumbar spine CT without IV contrast History: Leg weakness, evaluate spinal canal stenosis Comparison studies: Lumbar spine MRI 07/21/2016. Technique: Axial images were obtained through the lumbar spine. Coronal and sagittal images reconstructed from the axial data. Dose modulation, iterative reconstruction, and/or weight based adjustment of the mA/kV was utilized to reduce the radiation dose to as low as reasonably achievable. Intravenous contrast: None Findings: Number of non-rib bearing vertebral bodies: 5 Alignment: Minimal lumbar curvature convex to the left. Minimal grade 1 retrolisthesis of L2 on L3, approximate 6 mm grade 1 retrolisthesis of L3 on L4 and 5 mm retrolisthesis of L4 on L5. Soft tissues: Chronic postsurgical changes in the dorsal lumbosacral soft tissues from L3-L4 through L5-S1. Postsurgical fluid collection within the dorsal soft tissues at these levels which extends to the epidural space at L3-L4 to the middle L4 and at L5-S1 are seen to better advantage on the prior MR spine MRI. Paraspinal muscles: Severe atrophy from L5 to the sacrum. Vertebrae: No fractures, infection or neoplasm. Laminectomies at L3-L4, L4-L5 and L5-S1. Degenerative changes: Multiple anterior marginal osteophytes, many of which are contiguous across multiple vertebral levels in a configuration which can be seen with diffuse idiopathic skeletal hyperostosis (DISH). Additionally, there is multilevel bridging syndesmophytes which also raises the possibility for changes related to inflammatory spondyloarthropathy L1-L2: Partially calcified disc. Patent canal and foramina. L2-L3: Moderate loss of disc height. Minimal retrolisthesis of L2 on L3 with associated uncovered disc/disc bulge, thickened and partially calcified ligament flava and bilateral facet arthrosis with mild canal stenosis. No significant foraminal stenosis. L3-L4: Degenerated disc with vacuum phenomenon. Retrolisthesis of L3 on L4 with associated uncovered disc/disc bulge, thickened ligamenta flava, bilateral facet arthrosis and dorsal epidural fluid result in moderate to severe canal stenosis. Moderate bilateral foraminal stenosis is unchanged. L4-L5: Mild loss of disc height. Minimal retrolisthesis of L3 on L4 with associated disc osteophyte complex, thickened ligamentum flavum and severe bilateral facet arthrosis with moderate canal stenosis and severe left and moderate right foraminal stenosis. L5-S1: Mild loss of disc height posteriorly. Disc bulge with bilateral foraminal disc osteophyte complexes, severe facet arthrosis and postsurgical dorsal epidural fluid collection with moderate canal stenosis and severe bilateral foraminal stenosis. Sacroiliac joints: Advanced degenerative changes with partial ankylosis bilaterally Incidental findings: Severe calcified atherosclerosis in the abdominal aorta and its branching vessels with left renal artery stent in place. Partially imaged left inferior pole renal cyst which contains peripheral calcification. Similar cysts partially visualized on the prior 09/22/2016 CT and could be further evaluated by follow-up renal ultrasound as clinically warranted. IMPRESSION: No significant changes from the previous lumbar spine MRI of 07/21/2016 when allowing for differences in modality. 1. Surgical changes with laminectomies from L3 to S1 with fluid collection in the dorsal soft tissues along the surgical and persistent moderate to severe canal narrowing at L3-L4 and moderate canal narrowing at L4-5 and at L5-S1. 2. Advanced multilevel degenerative changes with multilevel disc degeneration, listhesis and facet arthrosis as well as changes of DISH. Multilevel bridging syndesmophytosis also raises the possibility for changes related to superimposed inflammatory spondyloarthropathy 3. Varying degrees of moderate to severe foraminal stenosis from L3 to S1. Signed by: Dr. Shar Cherry M.D. on 12/02/2017 9:28 AM
[2017-12-02 11:34] VITALS: BP 125/63
--- NOTE | 2017-12-02 12:05 | Progress Note ---
DATE: CARDIOLOGY PROGRESS NOTE Patient seen in the room. Patient awake, alert, no complaints. Cardiac saldana, patient came with some weakness of the legs and patient found to have renal failure also. Patient complains of back pain. At this time cardiac saldana, he does not have any major issues. He is known patient with type 2 diabetes mellitus, coronary artery disease, chronic kidney disease, chronic anemia, sick sinus syndrome,s/p atrial fibrillation ablation, permanent pacemaker, hypothyroidism, and also he has got restless legs syndrome. Cardiac saldana, there is no need for further cardiac evaluation, and Dr. Maximiliano Simmons will be back on Tuesday. In the meantime, any cardiac issues, call me but however patient will be discharged on cardiac point of view anytime, I did have a discussion with primary physician. Job#: [id number] MAJ MUÑOZ
[2017-12-02 12:51] VITALS: BP 125/63
[2017-12-02] MEDS ORDERED: FLUCONAZOLE100 MG PO (13:37)
[2017-12-02 16:08] VITALS: BP 135/67
--- NOTE | 2017-12-02 17:00 | Discharge Summary ---
ADMISSION DIAGNOSES 1. Generalized weakness. 2. Chronic kidney disease, stage 3. 3. Atrial fibrillation. 4. Hypertension. 5. Hyperlipidemia. 6. Type 2 diabetes. 7. Hypothyroidism. 8. Benign prostatic hypertrophy. 9. Restless leg syndrome. 10. Anemia. 11. Candiduria. DISCHARGE DIAGNOSES 1. Generalized weakness. 2. Chronic kidney disease, stage 3. 3. Atrial fibrillation. 4. Hypertension. 5. Hyperlipidemia. 6. Type 2 diabetes. 7. Hypothyroidism. 8. Benign prostatic hypertrophy. 9. Restless leg syndrome. 10. Anemia. 11. Candiduria. 12. Ruled out cerebrovascular accident. HISTORY: The patient has a history of atrial fibrillation with rapid ventricular response, CAD with stent, hypertension, hyperlipidemia, sick sinus syndrome, type 2 diabetes, hypothyroidism, chronic kidney disease, restless leg syndrome, anemia, recurrent UTIs, BPH. PAST SURGICAL HISTORY: Pacemaker and cardiac ablation. FAMILY HISTORY: The patient's brother has diabetes. The patient's mother has cancer and the patient's sister had a stroke. SOCIAL HISTORY: The patient denies any tobacco, alcohol or illicit drug use. HOSPITAL COURSE: An 87-year-old male who complains of weakness and hallucinating that began yesterday. He missed his followup visit with Dr. Ordonez because he was unable to stand. He had his Garcia catheter removed on Tuesday and started to be unable to fully empty his bladder. He denies hematuria, dysuria and frequency. He also complains of hypotension with a systolic blood pressure of 115, which is abnormal for him, so his became scared and called Dr. Simmons who advised her to come to the ER. On admission, the patient had a CAT scan of the brain which was negative. EKG showed A paced with heart rate of 60. The patient started on IV fluids and said he feels much better after getting those. His creatinine went from 1.94 to 1.62 and GFR of 33 to 41. His atrial fibrillation was controlled on metoprolol and Rythmol. The patient resumed on home medicine for BPH, restless leg syndrome, hyperlipidemia, hypothyroidism and hypertension. The patient was started on fluconazole for the yeast found in his urine. The patient had a CT of the L spine which showed no significant changes from previous MRI on July 21, 2016. The patient's called Dr. Simmons prior to admission. He was consulted once the patient reached the ER. He made no significant changes during hospitalization. Dr. Ordonez was also consulted who recommended to keep the Garcia bag, change it to a leg bag at the time of discharge and discharge home to follow up in the office. The patient will discharge home on 5 more days of fluconazole. He will follow up with primary care physician for his elevated TSH and elevated A1c. Vital signs stable. The patient is afebrile. He will discharge home with his and home health physical therapy. He has all the DME that he needs at home. Vital signs stable. The patient is afebrile. Dictated by: Suad Humphries NP MAURISIO WATKINS MD Job#: [id number]
== END 2017-12-02 17:37 | disposition home or self-care (01) ==
LOC: ER 12:48 → ERHOLD 15:07 → MED/SURG3 15:58
PROVIDERS: ADMIT Internal Medicine; ATTEND Internal Medicine
DX: R53.1 Weakness (principal); R55 Syncope and collapse; E11.22 Type 2 diabetes mellitus with diabetic chronic kidney disease; I13.10 Hypertensive heart and chronic kidney disease without heart failure, with stage 1 through stage 4 chronic kidney disease, or unspecified chronic kidney disease; N18.3 Chronic kidney disease, stage 3 (moderate); I25.10 Atherosclerotic heart disease of native coronary artery without angina pectoris; I48.0 Paroxysmal atrial fibrillation; K21.9 Gastro-esophageal reflux disease without esophagitis; N40.1 Benign prostatic hyperplasia with lower urinary tract symptoms; R33.8 Other retention of urine; R31.29 Other microscopic hematuria; D64.9 Anemia, unspecified; I49.5 Sick sinus syndrome; Z95.0 Presence of cardiac pacemaker; E03.9 Hypothyroidism, unspecified; G25.81 Restless legs syndrome; N31.9 Neuromuscular dysfunction of bladder, unspecified; R44.3 Hallucinations, unspecified; B37.49 Other urogenital candidiasis
CPT/HCPCS: 36415 ×3; 51700; 70450; 71045; 72131; 80048 ×2; 80053; 81001; 82550 ×2; 82553 ×2; 82607; 82728; 82746; 82948 ×3; 83036; 83540; 83735; 83880; 84439; 84443; 84466; 84484 ×2; 85025 ×3; 85610; 85730; 87086; 93005; 94660 ×3; 97116 ×2; 97139; 97161; 99284; G0378 ×3; G8978; G8979; J7030 ×2; S0164 ×2

== ENCOUNTER → 2017-12-14 | Outpatient (CLI) | payer MEDICARE, BC ==
[~2017-12-14] MED LIST changes: +FLUCONAZOLE100 MG PO; +LEVOTHYROXINE50 MCG PO; +PROPAFENONE HC325 MG PO; +PROTONIX40 MG/ML PO; +SPIRONOLACTONE25 MG PO
--- NOTE | 2017-12-14 17:32 | Diagnostic Imaging Report ---
History: Unsteady gait Comparison studies: None Technique: Axial images were obtained through the cervical region. Coronal and sagittal images reconstructed from the axial data. Dose modulation, iterative reconstruction, and/or weight based adjustment of the mA/kV was utilized to reduce the radiation dose to as low as reasonably achievable. Intravenous contrast: None Findings: Airway: Patent. Atlantoaxial articulation: Intact Alignment: Normal lordosis No scoliosis. Cervicomedullary junction: No abnormalities. Patent foramen magnum. Soft tissues: Incidental atherosclerotic calcifications in the major branches off the aortic arch, carotid bulbs and carotid siphons. Vertebrae: No fractures, neoplasm or infection. Degenerative changes: C2-C3: Minimally degenerated disc. Patent spinal canal and foramina in spite of a central disc osteophyte complex. C3-4: Mildly degenerated disc. Mild spinal canal stenosis due to a central disc osteophyte complex. Patent foramina. C4-5: Moderately degenerated disc. Moderate spinal canal stenosis due to a disc osteophyte complex. Foraminal stenosis is severe right, moderate left due to uncoarthrosis. C5-6: Moderately degenerated disc. Moderate spinal canal stenosis due to a disc osteophyte complex. Severe right foraminal stenosis due to facet and uncoarthrosis. Patent left foramen. C6-7: Moderately degenerated disc. Severe spinal canal stenosis due to a central and left central disc osteophyte complex. Superimposed foraminal stenosis is mild left, moderate right due to uncoarthrosis.. C7-T1: Mildly degenerated disc. Moderate right facet arthrosis. Patent spinal canal and foramina. Additional findings: Patient status post right thyroidectomy. Mildly degenerated discs from T1 through T3. IMPRESSION: 1. Moderately degenerated disc at C4-5, mild at C5-6, moderate at C6-7 2. Degenerative spinal canal stenosis, moderate at C4-5 and C5-6, severe at C6-7 due to disc osteophyte complexes. 3. Superimposed foraminal stenosis from C4 to C7 is severe on the right at C4-5 and C5-6 , moderate left at C4-5 and right at C6-7. 4. No disc herniations. Signed by: Dr. Tez Madrigal M.D. on 12/14/2017 5:29 PM
== END ==
LOC: CT 13:37
PROVIDERS: ATTEND Neurological Surgery
DX: R26.9 Unspecified abnormalities of gait and mobility (principal); M54.2 Cervicalgia
CPT/HCPCS: 72125

== ENCOUNTER 2020-12-29 12:39 | Inpatient (IN) | payer MEDICARE, BC ==
[~2020-12-29] VITALS: Ht 167.6 cm; Wt 82.1 kg
[2020-12-29 13:19] LABS: BASOPHILS # (AUTO) 0.1 (0.0-0.1); BASOPHILS % 0.2 % (0.0-1.0); EOSINOPHILS # (AUTO) 0.1 (0.0-0.4); EOSINOPHILS % 0.3 % (0.0-6.0); HEMATOCRIT 29.8 % (38.2-49.6); HEMOGLOBIN 9.8 g/dL (14.0-18.0); LYMPHOCYTES # (AUTO) 0.5 (1.0-3.2); LYMPHOCYTES % 2.4 % (18.0-39.1); MEAN CORPUSCULAR HEMOGLOBIN 31.3 pg (28-32); MEAN CORPUSCULAR HGB CONC 32.9 g/dL (31-35); MEAN CORPUSCULAR VOLUME 95.2 fL (81-99); MONOCYTES # (AUTO) 1.1 (0.2-0.8); MONOCYTES % 5.4 % (4.4-11.3); NEUTROPHILS # (AUTO) 18.4 (2.1-6.9); NEUTROPHILS % 89.7 % (38.7-80.0); PLATELET COUNT 327 x10e3/uL (140-360); RED BLOOD COUNT 3.13 x10e6/uL (4.3-5.7); RED CELL DISTRIBUTION WIDTH 14.4 % (11.7-14.4)
[2020-12-29 13:35] LABS: INR 1.19; PROTHROMBIN TIME 16.1 seconds (11.9-14.5)
[2020-12-29 13:42] LABS: ALBUMIN 2.3 g/dL (3.5-5.0); ALBUMIN/GLOBULIN RATIO 0.4 (0.8-2.0); CALCIUM 9.6 mg/dL (8.4-10.2); CREATININE, SERUM 2.45 mg/dL (0.72-1.25)
[2020-12-29] MEDS ORDERED: Vancomycin IV 2 GM in SODIUM CHLORIDE 0.9% 250ML 250 ML IV ONE (13:45)
[2020-12-29] MEDS ORDERED: CEFEPIME 2 GM in SODIUM CHLORIDE 0.9% 100 ML IV ONE (13:45)
[2020-12-29] MEDS ORDERED: LACTATED RINGER'S 1,000 ML INJ ONE (14:00)
[2020-12-29] MEDS ORDERED: Vancomycin IV 1 GM in SODIUM CHLORIDE 0.9% 250ML 250 ML IV ONE (14:00)
[2020-12-29 14:18] LABS: CLARITY,URINE CLOUDY (CLEAR); COLOR,URINE YELLOW (YELLOW); KETONES,URINE NEGATIVE (NEGATIVE); LEUKOCYTE ESTERASE ,URINE 1+ (NEGATIVE); NITRITE,URINE POSITIVE (NEGATIVE); PROTEIN,URINE DIPSTICK 2+ (NEGATIVE)
[2020-12-29 14:19] LABS: URINE UROBILINOGEN 0.2 mg/dL (0.2 - 1)
[2020-12-29 14:26] LABS: RBC,URINE >50 /HPF (0-5); WBC,URINE (MAN) >50 /HPF (0-5)
[2020-12-29 14:27] LABS: BACTERIA,URINE MANY /HPF; EPITHELIAL CELLS,URINE MODERATE /LPF; RENAL EPITHELIAL CELLS,URINE FEW; TRANSITIONAL EPI CELLS,URINE FEW
[2020-12-29 14:28] LABS: MUCUS,URINE MANY (RARE); YEAST,URINE MANY
[2020-12-29] MEDS ORDERED: Morphine 4mg Syringe 4 MG/ML INJ IV PRN (20:00)
[2020-12-29] MEDS ORDERED: ATORVASTATIN 20 MG TAB PO SCH (21:00)
[2020-12-29] MEDS: LACTATED RINGER'S 1,000 ML INJ SCH (23:47)
[2020-12-30] VITALS (9 sets, daily range): BP systolic 103–152; BP diastolic 48–104
[2020-12-30 05:49] LABS: BASOPHILS % 0.2 % (0.0-1.0); EOSINOPHILS # (AUTO) 0.3 (0.0-0.4); EOSINOPHILS % 2.3 % (0.0-6.0); HEMATOCRIT 24.3 % (38.2-49.6); LYMPHOCYTES # (AUTO) 0.3 (1.0-3.2); LYMPHOCYTES % 2.6 % (18.0-39.1); MEAN CORPUSCULAR HEMOGLOBIN 31.3 pg (28-32); MEAN CORPUSCULAR HGB CONC 32.9 g/dL (31-35); MEAN CORPUSCULAR VOLUME 94.9 fL (81-99); MONOCYTES # (AUTO) 0.7 (0.2-0.8); MONOCYTES % 5.8 % (4.4-11.3); NEUTROPHILS # (AUTO) 10.6 (2.1-6.9); NEUTROPHILS % 87.4 % (38.7-80.0); PLATELET COUNT 243 x10e3/uL (140-360); RED BLOOD COUNT 2.56 x10e6/uL (4.3-5.7); RED CELL DISTRIBUTION WIDTH 14.3 % (11.7-14.4)
[2020-12-30 06:16] LABS: ALBUMIN 1.8 g/dL (3.5-5.0); ALBUMIN/GLOBULIN RATIO 0.4 (0.8-2.0); ANION GAP 16.9 mmol/L (8-16); CALCIUM 8.8 mg/dL (8.4-10.2); CREATININE, SERUM 2.2 mg/dL (0.72-1.25); POTASSIUM 3.9 mmol/L (3.5-5.1)
[2020-12-30 06:17] LABS: CHOL/HDL RATIO 7.7 (3.9-4.7); MAGNESIUM 1.8 MG/DL (1.3-2.1)
[2020-12-30] MEDS: LEVOTHYROXINE SODIUM 50 MCG TAB PO SCH (06:18)
[2020-12-30 06:24] LABS: CREATINE KINASE MB 11.9 ng/mL (0-5.0)
[2020-12-30 06:37] LABS: THYROID STIMULATING HORMONE 1.193 uIU/mL (0.350-4.940)
[2020-12-30] MEDS ORDERED: METOPROLOL SUCCINATE 25 MG TAB XL PO SCH (09:00)
[2020-12-30] MEDS ORDERED: FUROSEMIDE 20 MG TAB PO SCH (09:00)
[2020-12-30] MEDS ORDERED: SPIRONOLACTONE 25 MG TAB PO SCH (09:00)
[2020-12-30] MEDS ORDERED: DOCUSATE SODIUM 100 MG CAP PO SCH (09:00)
[2020-12-30] MEDS: CLOPIDOGREL BISULFATE 75 MG TAB PO SCH (09:00)
[2020-12-30] MEDS ORDERED: CEFEPIME 1 GM in SODIUM CHLORIDE 0.9% 50ML 50 ML IV SCH (09:00)
[2020-12-30] MEDS ORDERED: LINEZOLID 600 MG/D5W 300ML 300 ML IV SCH (09:00)
[2020-12-30] MEDS ORDERED: DEXTROSE 50% SYRINGE 50 ML IV PRN (11:15)
[2020-12-30] MEDS: LACTATED RINGER'S 1,000 ML INJ SCH (11:35)
[2020-12-30] MEDS: DULOXETINE HCL 30 MG DELAYED RELEASE PO SCH ×2 (11:45→16:37)
[2020-12-30] MEDS ORDERED: DOCUSATE SODIUM 100 MG CAP PO PRN (11:45)
[2020-12-30] MEDS: FINASTERIDE 5 MG TAB PO SCH (11:47)
[2020-12-30] MEDS: TAMSULOSIN HCL 0.4 MG CAP PO SCH (11:47)
[2020-12-30] MEDS: METOPROLOL TARTRATE 25 MG TAB PO SCH ×3 (13:03→23:24)
[2020-12-30] MEDS: INSULIN LISPRO 100 UNIT/1 ML 3ML VIAL SQ SCH ×3 (13:12→22:24)
[2020-12-30] MEDS ORDERED: DILTIAZEM HCL 5 MG/ML 5 ML VIAL IV ONE (13:30)
[2020-12-30] MEDS ORDERED: DIGOXIN INJ 0.25 MG/ML 2 ML AMP IV ONE (13:30)
[2020-12-30] MEDS: LINEZOLID 600 MG/D5W 300ML 300 ML IV SCH ×2 (13:34→22:23)
[2020-12-30] MEDS: BALSAM PERU/CASTOR OIL 60 GM OINT...G. TP SCH (15:00)
[2020-12-30] MEDS: MEROPENEM 500 MG in SODIUM CHLORIDE 0.9% 50ML 50 ML IV SCH ×2 (16:36→22:23)
[2020-12-30] MEDS ORDERED: LACTATED RINGER'S 1,000 ML ONE (22:22)
[2020-12-30] MEDS ORDERED: HYDROCODONE/APAP 10MG-325MG TAB PO PRN (23:00)
[2020-12-30 23:30] LABS: % IRON SATURATION 14 % (15-50); IRON 25 ug/dL (65-175); TOTAL IRON BINDING CAPACITY 179 ug/dL (261-478); TRANSFERRIN 128 mg/dL (174-364)
[2020-12-30] MEDS: MELATONIN 3 MG TAB PO PRN (23:46)
[2020-12-31] VITALS (9 sets, daily range): BP systolic 100–125; BP diastolic 47–68
[2020-12-31] MEDS: LACTATED RINGER'S 1,000 ML INJ SCH ×2 (01:08→10:08)
[2020-12-31] MEDS: MEROPENEM 500 MG in SODIUM CHLORIDE 0.9% 50ML 50 ML IV SCH ×3 (06:05→21:08)
[2020-12-31] MEDS: LEVOTHYROXINE SODIUM 50 MCG TAB PO SCH (06:05)
[2020-12-31] MEDS: METOPROLOL TARTRATE 25 MG TAB PO SCH ×4 (06:05→22:54)
[2020-12-31 06:25] LABS: BASOPHILS % 0.4 % (0.0-1.0); EOSINOPHILS # (AUTO) 0.2 (0.0-0.4); EOSINOPHILS % 1.9 % (0.0-6.0); HEMOGLOBIN 7.1 g/dL (14.0-18.0); LYMPHOCYTES # (AUTO) 0.5 (1.0-3.2); LYMPHOCYTES % 4.5 % (18.0-39.1); MEAN CORPUSCULAR HEMOGLOBIN 31.1 pg (28-32); MEAN CORPUSCULAR HGB CONC 32.3 g/dL (31-35); MEAN CORPUSCULAR VOLUME 96.5 fL (81-99); MONOCYTES # (AUTO) 0.8 (0.2-0.8); MONOCYTES % 7.4 % (4.4-11.3); NEUTROPHILS # (AUTO) 9.1 (2.1-6.9); NEUTROPHILS % 82.8 % (38.7-80.0); PLATELET COUNT 252 x10e3/uL (140-360); RED BLOOD COUNT 2.28 x10e6/uL (4.3-5.7); RED CELL DISTRIBUTION WIDTH 14.5 % (11.7-14.4)
[2020-12-31 06:46] LABS: ALBUMIN 1.6 g/dL (3.5-5.0); ALBUMIN/GLOBULIN RATIO 0.4 (0.8-2.0); CALCIUM 8.6 mg/dL (8.4-10.2); CREATININE, SERUM 2.27 mg/dL (0.72-1.25)
[2020-12-31] MEDS: INSULIN LISPRO 100 UNIT/1 ML 3ML VIAL SQ SCH ×4 (07:13→21:13)
[2020-12-31] MEDS: TAMSULOSIN HCL 0.4 MG CAP PO SCH (07:54)
[2020-12-31] MEDS: DULOXETINE HCL 30 MG DELAYED RELEASE PO SCH ×2 (07:54→17:11)
[2020-12-31] MEDS: FINASTERIDE 5 MG TAB PO SCH (07:54)
[2020-12-31] MEDS: CLOPIDOGREL BISULFATE 75 MG TAB PO SCH (07:54)
[2020-12-31] MEDS: BALSAM PERU/CASTOR OIL 60 GM OINT...G. TP SCH (09:20)
[2020-12-31] MEDS: IRON SUCROSE 100 MG in SODIUM CHLORIDE 0.9% 100 ML 100 ML IV SCH (09:20)
[2020-12-31] MEDS: LINEZOLID 600 MG/D5W 300ML 300 ML IV SCH ×2 (10:08→21:08)
[2020-12-31] MEDS ORDERED: SEVOFLURANE INHAL SOLN 250 ML PEN BTL ONE (12:45)
[2020-12-31] MEDS ORDERED: ONDANSETRON HCL INJ 2MG/ML 2ML 2 MG/ML VIAL ONE (12:45)
[2020-12-31] MEDS ORDERED: PROPOFOL IV EMULSION 10 MG/ML 20 ML VIAL ONE (12:45)
[2020-12-31] MEDS ORDERED: POVIDONE IODINE 0.05% 0.05 % ML PO ONE (12:45)
[2020-12-31] MEDS ORDERED: LIDOCAINE HCL 2% LOCAL INJ 5 ML SDV VIAL INJ ONE (12:45)
[2020-12-31] MEDS ORDERED: FENTANYL CITRATE/PF 100MCG/2 ML INJ ONE (17:10)
[2020-12-31] MEDS: EPOETIN ALFA-EPBX 10,000 UNIT/ML VIAL SC SCH (17:11)
[2020-12-31] MEDS: HYDROCODONE/APAP 5MG-325MG TAB PO PRN (22:54)
[2020-12-31] MEDS: MELATONIN 3 MG TAB PO PRN (22:54)
[2021-01-01 04:00] VITALS: BP 99/51
[2021-01-01] MEDS: LACTATED RINGER'S 1,000 ML INJ SCH ×2 (04:57→16:39)
[2021-01-01] MEDS: MEROPENEM 500 MG in SODIUM CHLORIDE 0.9% 50ML 50 ML IV SCH ×3 (04:57→21:57)
[2021-01-01] MEDS: LEVOTHYROXINE SODIUM 50 MCG TAB PO SCH (04:59)
[2021-01-01] MEDS: METOPROLOL TARTRATE 25 MG TAB PO SCH ×3 (04:59→16:41)
[2021-01-01 07:18] LABS: BASOPHILS % 0.2 % (0.0-1.0); EOSINOPHILS # (AUTO) 0.2 (0.0-0.4); EOSINOPHILS % 1.7 % (0.0-6.0); LYMPHOCYTES # (AUTO) 0.5 (1.0-3.2); MEAN CORPUSCULAR HEMOGLOBIN 31.5 pg (28-32); MEAN CORPUSCULAR HGB CONC 32.7 g/dL (31-35); MEAN CORPUSCULAR VOLUME 96.2 fL (81-99); MONOCYTES # (AUTO) 0.7 (0.2-0.8); MONOCYTES % 6.4 % (4.4-11.3); NEUTROPHILS # (AUTO) 8.3 (2.1-6.9); NEUTROPHILS % 81.8 % (38.7-80.0); PLATELET COUNT 249 x10e3/uL (140-360); RED BLOOD COUNT 2.13 x10e6/uL (4.3-5.7); RED CELL DISTRIBUTION WIDTH 14.4 % (11.7-14.4)
[2021-01-01 07:30] LABS: HEMOGLOBIN 6.7 g/dL (14.0-18.0)
[2021-01-01 07:31] LABS: HEMATOCRIT 20.5 % (38.2-49.6)
[2021-01-01 07:52] LABS: ALBUMIN 1.6 g/dL (3.5-5.0); ALBUMIN/GLOBULIN RATIO 0.4 (0.8-2.0); ANION GAP 15.2 mmol/L (8-16); CALCIUM 7.9 mg/dL (8.4-10.2); CREATININE, SERUM 2.22 mg/dL (0.72-1.25); POTASSIUM 4.2 mmol/L (3.5-5.1)
[2021-01-01 08:00] VITALS: BP 99/51
[2021-01-01] MEDS: DULOXETINE HCL 30 MG DELAYED RELEASE PO SCH ×2 (09:00→16:40)
[2021-01-01] MEDS: CLOPIDOGREL BISULFATE 75 MG TAB PO SCH (09:00)
[2021-01-01] MEDS: FINASTERIDE 5 MG TAB PO SCH (09:00)
[2021-01-01] MEDS: FAMOTIDINE 20 MG TAB PO SCH (09:00)
[2021-01-01] MEDS: IRON SUCROSE 100 MG in SODIUM CHLORIDE 0.9% 100 ML 100 ML IV SCH (09:00)
[2021-01-01] MEDS: TAMSULOSIN HCL 0.4 MG CAP PO SCH (09:00)
[2021-01-01] MEDS: BALSAM PERU/CASTOR OIL 60 GM OINT...G. TP SCH (09:00)
[2021-01-01 09:01] VITALS: BP 115/56
[2021-01-01] MEDS: LINEZOLID 600 MG/D5W 300ML 300 ML IV SCH ×2 (10:00→22:00)
[2021-01-01] MEDS: INSULIN LISPRO 100 UNIT/1 ML 3ML VIAL SQ SCH ×4 (10:26→21:00)
[2021-01-01] MEDS ORDERED: FUROSEMIDE INJ 10 MG/ML 2 ML VIAL IV SCH (11:30)
[2021-01-01] MEDS ORDERED: SODIUM CHLORIDE 0.9% 250ML 250 ML IV ONE (11:30)
[2021-01-01 11:57] VITALS: BP 123/66
[2021-01-01 16:19] VITALS: BP 125/90
[2021-01-01] MEDS: HYDROCODONE/APAP 5MG-325MG TAB PO PRN (17:03)
[2021-01-01 20:00] VITALS: BP 123/56
[2021-01-02] VITALS (7 sets, daily range): BP systolic 109–196; BP diastolic 50–171
[2021-01-02] MEDS: METOPROLOL TARTRATE 25 MG TAB PO SCH ×4 (00:17→18:30)
[2021-01-02] MEDS ORDERED: PHYTONADIONE 10 MG/ML AMP IV STA (00:19)
[2021-01-02] MEDS ORDERED: PHYTONADIONE 10MG/ML 20 MG in SODIUM CHLORIDE 0.9% 50ML 50 ML IV ONE (00:30)
[2021-01-02] MEDS ORDERED: SODIUM CHLORIDE 0.9% 100 ML ONE (00:34)
[2021-01-02] MEDS: MEROPENEM 500 MG in SODIUM CHLORIDE 0.9% 50ML 50 ML IV SCH (06:00)
[2021-01-02 06:12] LABS: BASOPHILS % 0.4 % (0.0-1.0); EOSINOPHILS # (AUTO) 0.2 (0.0-0.4); EOSINOPHILS % 2.2 % (0.0-6.0); HEMATOCRIT 25.5 % (38.2-49.6); HEMOGLOBIN 8.3 g/dL (14.0-18.0); LYMPHOCYTES # (AUTO) 0.6 (1.0-3.2); LYMPHOCYTES % 6.4 % (18.0-39.1); MEAN CORPUSCULAR HEMOGLOBIN 30.9 pg (28-32); MEAN CORPUSCULAR HGB CONC 32.5 g/dL (31-35); MEAN CORPUSCULAR VOLUME 94.8 fL (81-99); MONOCYTES # (AUTO) 0.6 (0.2-0.8); MONOCYTES % 6.5 % (4.4-11.3); NEUTROPHILS # (AUTO) 7.4 (2.1-6.9); NEUTROPHILS % 76.6 % (38.7-80.0); PLATELET COUNT 222 x10e3/uL (140-360); RED BLOOD COUNT 2.69 x10e6/uL (4.3-5.7); RED CELL DISTRIBUTION WIDTH 14.9 % (11.7-14.4)
[2021-01-02] MEDS: LACTATED RINGER'S 1,000 ML INJ SCH (06:15)
[2021-01-02 06:33] LABS: ALBUMIN 1.8 g/dL (3.5-5.0); ALBUMIN/GLOBULIN RATIO 0.4 (0.8-2.0); ANION GAP 17.2 mmol/L (8-16); CALCIUM 8.4 mg/dL (8.4-10.2); CREATININE, SERUM 2.36 mg/dL (0.72-1.25); POTASSIUM 4.2 mmol/L (3.5-5.1)
[2021-01-02] MEDS: LEVOTHYROXINE SODIUM 50 MCG TAB PO SCH (07:54)
[2021-01-02] MEDS: BALSAM PERU/CASTOR OIL 60 GM OINT...G. TP SCH (08:10)
[2021-01-02] MEDS: FAMOTIDINE 20 MG TAB PO SCH (09:07)
[2021-01-02] MEDS: FINASTERIDE 5 MG TAB PO SCH (09:07)
[2021-01-02] MEDS: DULOXETINE HCL 30 MG DELAYED RELEASE PO SCH ×2 (09:07→18:29)
[2021-01-02] MEDS: TAMSULOSIN HCL 0.4 MG CAP PO SCH (09:07)
[2021-01-02] MEDS: INSULIN LISPRO 100 UNIT/1 ML 3ML VIAL SQ SCH ×4 (09:50→21:00)
[2021-01-02] MEDS: LINEZOLID 600 MG/D5W 300ML 300 ML IV SCH (10:27)
[2021-01-02] MEDS: IRON SUCROSE 100 MG in SODIUM CHLORIDE 0.9% 100 ML 100 ML IV SCH (10:29)
[2021-01-02] MEDS ORDERED: SODIUM CHLORIDE 0.9% 250ML 250 ML ONE (10:46)
[2021-01-02] MEDS: CEFEPIME 1 GM in SODIUM CHLORIDE 0.9% 50ML 50 ML IV SCH ×2 (14:57→21:48)
[2021-01-02] MEDS ORDERED: EPINEPHRINE HCL 1:1000 1ML 1 MG/ML AMP ONE ×2 (17:36→17:52)
[2021-01-02] MEDS ORDERED: POVIDONE IODINE 0.05% 0.05 % ML PO ONE (17:52)
[2021-01-02] MEDS ORDERED: PROPOFOL IV EMULSION 10 MG/ML 20 ML VIAL ONE (17:52)
[2021-01-02] MEDS: EPOETIN ALFA-EPBX 10,000 UNIT/ML VIAL SC SCH (18:30)
[2021-01-02 18:36] LABS: INR 1.05; PROTHROMBIN TIME 14.5 seconds (11.9-14.5)
[2021-01-02] MEDS ORDERED: LACTATED RINGER'S 1,000 ML INJ ONE (19:30)
[2021-01-02] MEDS: Pantoprazole IV 40 MG in SODIUM CHLORIDE 0.9% 50ML 50 ML IV SCH (21:03)
[2021-01-02] MEDS: SUCRALFATE 1 GM TAB PO SCH (21:04)
[2021-01-03] VITALS (7 sets, daily range): BP systolic 116–137; BP diastolic 52–88
[2021-01-03] MEDS: Pantoprazole IV 40 MG in SODIUM CHLORIDE 0.9% 50ML 50 ML IV SCH ×5 (02:27→20:04)
[2021-01-03 05:05] LABS: BASOPHILS % 0.3 % (0.0-1.0); EOSINOPHILS # (AUTO) 0.2 (0.0-0.4); EOSINOPHILS % 1.5 % (0.0-6.0); HEMOGLOBIN 8.1 g/dL (14.0-18.0); LYMPHOCYTES # (AUTO) 0.5 (1.0-3.2); LYMPHOCYTES % 4.8 % (18.0-39.1); MEAN CORPUSCULAR HGB CONC 32.4 g/dL (31-35); MEAN CORPUSCULAR VOLUME 95.8 fL (81-99); MONOCYTES # (AUTO) 0.6 (0.2-0.8); MONOCYTES % 5.7 % (4.4-11.3); NEUTROPHILS # (AUTO) 8.2 (2.1-6.9); NEUTROPHILS % 82.1 % (38.7-80.0); PLATELET COUNT 228 x10e3/uL (140-360); RED BLOOD COUNT 2.61 x10e6/uL (4.3-5.7); RED CELL DISTRIBUTION WIDTH 14.7 % (11.7-14.4)
[2021-01-03 05:29] LABS: ANION GAP 15.3 mmol/L (8-16); CALCIUM 8.2 mg/dL (8.4-10.2); CREATININE, SERUM 1.94 mg/dL (0.72-1.25); POTASSIUM 4.3 mmol/L (3.5-5.1)
[2021-01-03 05:56] LABS: ANISOCYTOSIS SLIGHT; BAND NEUTROPHILS % (MANUAL) 1 %; LYMPHOCYTES % (MANUAL) 9 % (19-48); MONOCYTES % (MANUAL) 1 % (3.4-9.0); NEUTROPHILS % (MANUAL) 88 % (40-74)
[2021-01-03 05:58] LABS: PLATELET ESTIMATE ADEQUATE; PLATELET MORPHOLOGY COMMENT NORMAL; RBC MORPHOLOGY COMMENT NORMAL
[2021-01-03] MEDS: CEFEPIME 1 GM in SODIUM CHLORIDE 0.9% 50ML 50 ML IV SCH ×3 (06:02→21:44)
[2021-01-03] MEDS: METOPROLOL TARTRATE 25 MG TAB PO SCH ×4 (06:04→17:23)
[2021-01-03] MEDS: LEVOTHYROXINE SODIUM 50 MCG TAB PO SCH (06:04)
[2021-01-03] MEDS: SUCRALFATE 1 GM TAB PO SCH ×4 (07:30→20:32)
[2021-01-03] MEDS: INSULIN LISPRO 100 UNIT/1 ML 3ML VIAL SQ SCH ×4 (07:30→20:34)
[2021-01-03] MEDS: TAMSULOSIN HCL 0.4 MG CAP PO SCH (09:00)
[2021-01-03] MEDS: FAMOTIDINE 20 MG TAB PO SCH (09:00)
[2021-01-03] MEDS: IRON SUCROSE 100 MG in SODIUM CHLORIDE 0.9% 100 ML 100 ML IV SCH (09:00)
[2021-01-03] MEDS: BALSAM PERU/CASTOR OIL 60 GM OINT...G. TP SCH (09:00)
[2021-01-03] MEDS: DULOXETINE HCL 30 MG DELAYED RELEASE PO SCH ×2 (09:00→17:00)
[2021-01-03] MEDS: FINASTERIDE 5 MG TAB PO SCH (09:00)
[2021-01-03] MEDS ORDERED: GUAIFENESIN/CODEINE 5 ML LIQD PO PRN (11:15)
[2021-01-03] MEDS: HYDROCODONE/APAP 5MG-325MG TAB PO PRN (17:26)
[2021-01-04] VITALS (8 sets, daily range): BP systolic 115–142; BP diastolic 51–78
[2021-01-04] MEDS: METOPROLOL TARTRATE 25 MG TAB PO SCH ×4 (01:37→17:51)
[2021-01-04] MEDS: Pantoprazole IV 40 MG in SODIUM CHLORIDE 0.9% 50ML 50 ML IV SCH ×5 (01:37→20:31)
[2021-01-04] MEDS ORDERED: MAGNESIUM HYDROXIDE 30 ML UDC PO ONE (01:45)
[2021-01-04] MEDS: CEFEPIME 1 GM in SODIUM CHLORIDE 0.9% 50ML 50 ML IV SCH ×3 (05:44→22:30)
[2021-01-04 06:05] LABS: BASOPHILS % 0.4 % (0.0-1.0); EOSINOPHILS # (AUTO) 0.2 (0.0-0.4); EOSINOPHILS % 1.5 % (0.0-6.0); HEMATOCRIT 26.3 % (38.2-49.6); HEMOGLOBIN 8.5 g/dL (14.0-18.0); LYMPHOCYTES # (AUTO) 0.5 (1.0-3.2); LYMPHOCYTES % 5.2 % (18.0-39.1); MEAN CORPUSCULAR HGB CONC 32.3 g/dL (31-35); MONOCYTES # (AUTO) 0.6 (0.2-0.8); MONOCYTES % 5.6 % (4.4-11.3); NEUTROPHILS # (AUTO) 8.5 (2.1-6.9); NEUTROPHILS % 81.7 % (38.7-80.0); PLATELET COUNT 232 x10e3/uL (140-360); RED BLOOD COUNT 2.74 x10e6/uL (4.3-5.7); RED CELL DISTRIBUTION WIDTH 14.7 % (11.7-14.4)
[2021-01-04] MEDS: LEVOTHYROXINE SODIUM 50 MCG TAB PO SCH (06:05)
[2021-01-04 06:25] LABS: ANION GAP 15.9 mmol/L (8-16); CALCIUM 8.6 mg/dL (8.4-10.2); CREATININE, SERUM 1.71 mg/dL (0.72-1.25); POTASSIUM 4.9 mmol/L (3.5-5.1)
[2021-01-04] MEDS: INSULIN LISPRO 100 UNIT/1 ML 3ML VIAL SQ SCH ×4 (07:30→20:30)
[2021-01-04] MEDS: SUCRALFATE 1 GM TAB PO SCH ×4 (07:30→22:29)
[2021-01-04] MEDS: BALSAM PERU/CASTOR OIL 60 GM OINT...G. TP SCH (09:00)
[2021-01-04] MEDS: FINASTERIDE 5 MG TAB PO SCH (09:00)
[2021-01-04] MEDS: DULOXETINE HCL 30 MG DELAYED RELEASE PO SCH ×2 (09:00→17:00)
[2021-01-04] MEDS: FAMOTIDINE 20 MG TAB PO SCH (09:00)
[2021-01-04] MEDS: TAMSULOSIN HCL 0.4 MG CAP PO SCH (09:00)
[2021-01-04] MEDS: IRON SUCROSE 100 MG in SODIUM CHLORIDE 0.9% 100 ML 100 ML IV SCH (09:00)
[2021-01-04] MEDS: CLOPIDOGREL BISULFATE 75 MG TAB PO SCH (09:00)
[2021-01-04] MEDS ORDERED: LORAZEPAM INJ 2 MG/ML VIAL IV PRN (14:45)
[2021-01-04] MEDS ORDERED: SODIUM CHLORIDE 0.9% 50ML 50 ML ONE (16:54)
[2021-01-04] MEDS ORDERED: PHENYTOIN SODIUM INJ 50 MG/ML 2 ML VIAL IV STA (17:25)
[2021-01-04] MEDS ORDERED: LORAZEPAM INJ 2 MG/ML VIAL IV ONE (17:30)
[2021-01-05] VITALS (8 sets, daily range): BP systolic 109–155; BP diastolic 58–116
[2021-01-05] MEDS: METOPROLOL TARTRATE 25 MG TAB PO SCH ×4 (00:38→16:58)
[2021-01-05 01:44] LABS: CLARITY,URINE CLOUDY (CLEAR); COLOR,URINE YELLOW (YELLOW); KETONES,URINE NEGATIVE (NEGATIVE); LEUKOCYTE ESTERASE ,URINE 2+ (NEGATIVE); NITRITE,URINE NEGATIVE (NEGATIVE); PROTEIN,URINE DIPSTICK 1+ (NEGATIVE); URINE UROBILINOGEN 0.2 mg/dL (0.2 - 1)
[2021-01-05 01:53] LABS: BACTERIA,URINE MODERATE /HPF; EPITHELIAL CELLS,URINE FEW /LPF; RBC,URINE >50 /HPF (0-5); WBC,URINE (MAN) >50 /HPF (0-5)
[2021-01-05 01:54] LABS: YEAST,URINE MANY
[2021-01-05] MEDS: Pantoprazole IV 40 MG in SODIUM CHLORIDE 0.9% 50ML 50 ML IV SCH ×5 (02:25→21:35)
[2021-01-05] MEDS: CEFEPIME 1 GM in SODIUM CHLORIDE 0.9% 50ML 50 ML IV SCH ×3 (05:47→21:35)
[2021-01-05] MEDS: LEVOTHYROXINE SODIUM 50 MCG TAB PO SCH (05:49)
[2021-01-05 05:53] LABS: BASOPHILS % 0.3 % (0.0-1.0); EOSINOPHILS # (AUTO) 0.2 (0.0-0.4); EOSINOPHILS % 1.7 % (0.0-6.0); HEMATOCRIT 27.1 % (38.2-49.6); HEMOGLOBIN 8.8 g/dL (14.0-18.0); LYMPHOCYTES # (AUTO) 0.6 (1.0-3.2); LYMPHOCYTES % 5.2 % (18.0-39.1); MEAN CORPUSCULAR HEMOGLOBIN 31.2 pg (28-32); MEAN CORPUSCULAR HGB CONC 32.5 g/dL (31-35); MEAN CORPUSCULAR VOLUME 96.1 fL (81-99); MONOCYTES # (AUTO) 0.9 (0.2-0.8); MONOCYTES % 7.7 % (4.4-11.3); NEUTROPHILS # (AUTO) 9.7 (2.1-6.9); NEUTROPHILS % 81.4 % (38.7-80.0); PLATELET COUNT 242 x10e3/uL (140-360); RED BLOOD COUNT 2.82 x10e6/uL (4.3-5.7); RED CELL DISTRIBUTION WIDTH 14.6 % (11.7-14.4)
[2021-01-05 06:14] LABS: ANION GAP 16.3 mmol/L (8-16); CALCIUM 8.9 mg/dL (8.4-10.2); CREATININE, SERUM 1.91 mg/dL (0.72-1.25); POTASSIUM 5.3 mmol/L (3.5-5.1)
[2021-01-05] MEDS: INSULIN LISPRO 100 UNIT/1 ML 3ML VIAL SQ SCH ×4 (07:30→21:35)
[2021-01-05] MEDS: SUCRALFATE 1 GM TAB PO SCH ×4 (07:30→21:35)
[2021-01-05] MEDS: FINASTERIDE 5 MG TAB PO SCH (09:00)
[2021-01-05] MEDS: CLOPIDOGREL BISULFATE 75 MG TAB PO SCH (09:00)
[2021-01-05] MEDS: DULOXETINE HCL 30 MG DELAYED RELEASE PO SCH ×2 (09:00→16:58)
[2021-01-05] MEDS: FAMOTIDINE 20 MG TAB PO SCH (09:00)
[2021-01-05] MEDS: TAMSULOSIN HCL 0.4 MG CAP PO SCH (09:00)
[2021-01-05] MEDS: BALSAM PERU/CASTOR OIL 60 GM OINT...G. TP SCH (11:21)
[2021-01-05] MEDS: IRON SUCROSE 100 MG in SODIUM CHLORIDE 0.9% 100 ML 100 ML IV SCH (11:54)
[2021-01-05] MEDS: EPOETIN ALFA-EPBX 10,000 UNIT/ML VIAL SC SCH (16:58)
[2021-01-05] MEDS ORDERED: SODIUM CHLORIDE 0.9% 250ML 250 ML ONE (21:29)
[2021-01-06] VITALS (8 sets, daily range): BP systolic 117–138; BP diastolic 50–82
[2021-01-06] MEDS: METOPROLOL TARTRATE 25 MG TAB PO SCH ×4 (00:30→18:20)
[2021-01-06] MEDS: Pantoprazole IV 40 MG in SODIUM CHLORIDE 0.9% 50ML 50 ML IV SCH ×4 (02:38→23:00)
[2021-01-06 05:03] LABS: BASOPHILS % 0.4 % (0.0-1.0); EOSINOPHILS # (AUTO) 0.2 (0.0-0.4); EOSINOPHILS % 2.2 % (0.0-6.0); HEMATOCRIT 27.2 % (38.2-49.6); HEMOGLOBIN 8.6 g/dL (14.0-18.0); LYMPHOCYTES # (AUTO) 0.7 (1.0-3.2); LYMPHOCYTES % 6.6 % (18.0-39.1); MEAN CORPUSCULAR HEMOGLOBIN 30.8 pg (28-32); MEAN CORPUSCULAR HGB CONC 31.6 g/dL (31-35); MEAN CORPUSCULAR VOLUME 97.5 fL (81-99); MONOCYTES # (AUTO) 0.7 (0.2-0.8); MONOCYTES % 7.3 % (4.4-11.3); NEUTROPHILS # (AUTO) 8.1 (2.1-6.9); NEUTROPHILS % 79.7 % (38.7-80.0); PLATELET COUNT 223 x10e3/uL (140-360); RED BLOOD COUNT 2.79 x10e6/uL (4.3-5.7); RED CELL DISTRIBUTION WIDTH 14.8 % (11.7-14.4)
[2021-01-06 05:46] LABS: ALBUMIN/GLOBULIN RATIO 0.5 (0.8-2.0); ANION GAP 14.9 mmol/L (8-16); CALCIUM 8.8 mg/dL (8.4-10.2); CREATININE, SERUM 1.98 mg/dL (0.72-1.25); POTASSIUM 4.9 mmol/L (3.5-5.1)
[2021-01-06] MEDS: LEVOTHYROXINE SODIUM 50 MCG TAB PO SCH (05:50)
[2021-01-06] MEDS: CEFEPIME 1 GM in SODIUM CHLORIDE 0.9% 50ML 50 ML IV SCH ×3 (05:50→20:49)
[2021-01-06] MEDS: INSULIN LISPRO 100 UNIT/1 ML 3ML VIAL SQ SCH ×4 (07:30→20:55)
[2021-01-06] MEDS: BALSAM PERU/CASTOR OIL 60 GM OINT...G. TP SCH (08:35)
[2021-01-06] MEDS: HYDROCODONE/APAP 5MG-325MG TAB PO PRN (11:22)
[2021-01-06] MEDS: SUCRALFATE 1 GM TAB PO SCH ×4 (11:30→20:48)
[2021-01-06] MEDS: CLOPIDOGREL BISULFATE 75 MG TAB PO SCH (11:54)
[2021-01-06] MEDS: DULOXETINE HCL 30 MG DELAYED RELEASE PO SCH ×2 (11:54→18:19)
[2021-01-06] MEDS: TAMSULOSIN HCL 0.4 MG CAP PO SCH (11:54)
[2021-01-06] MEDS: FAMOTIDINE 20 MG TAB PO SCH (11:54)
[2021-01-06] MEDS: FINASTERIDE 5 MG TAB PO SCH (11:55)
[2021-01-06] MEDS: IRON SUCROSE 100 MG in SODIUM CHLORIDE 0.9% 100 ML 100 ML IV SCH (12:41)
[2021-01-07] VITALS: BP 121/65
[2021-01-07] MEDS: METOPROLOL TARTRATE 25 MG TAB PO SCH ×3 (02:05→11:56)
[2021-01-07] MEDS: HYDROCODONE/APAP 5MG-325MG TAB PO PRN (03:07)
[2021-01-07 04:00] VITALS: BP 91/49
[2021-01-07] MEDS: Pantoprazole IV 40 MG in SODIUM CHLORIDE 0.9% 50ML 50 ML IV SCH ×2 (04:05→08:40)
[2021-01-07] MEDS: CEFEPIME 1 GM in SODIUM CHLORIDE 0.9% 50ML 50 ML IV SCH (05:18)
[2021-01-07] MEDS: LEVOTHYROXINE SODIUM 50 MCG TAB PO SCH (05:18)
[2021-01-07 05:59] LABS: BASOPHILS % 0.4 % (0.0-1.0); EOSINOPHILS # (AUTO) 0.2 (0.0-0.4); EOSINOPHILS % 2.3 % (0.0-6.0); HEMOGLOBIN 8.4 g/dL (14.0-18.0); LYMPHOCYTES # (AUTO) 0.6 (1.0-3.2); LYMPHOCYTES % 6.4 % (18.0-39.1); MEAN CORPUSCULAR HEMOGLOBIN 30.9 pg (28-32); MEAN CORPUSCULAR HGB CONC 31.1 g/dL (31-35); MEAN CORPUSCULAR VOLUME 99.3 fL (81-99); MONOCYTES # (AUTO) 0.8 (0.2-0.8); MONOCYTES % 8.2 % (4.4-11.3); NEUTROPHILS # (AUTO) 7.8 (2.1-6.9); PLATELET COUNT 219 x10e3/uL (140-360); RED BLOOD COUNT 2.72 x10e6/uL (4.3-5.7); RED CELL DISTRIBUTION WIDTH 14.8 % (11.7-14.4)
[2021-01-07 06:24] LABS: ANION GAP 14.4 mmol/L (8-16); CALCIUM 8.6 mg/dL (8.4-10.2); CREATININE, SERUM 1.84 mg/dL (0.72-1.25); POTASSIUM 4.4 mmol/L (3.5-5.1)
[2021-01-07 07:21] VITALS: BP 134/61
[2021-01-07] MEDS: SUCRALFATE 1 GM TAB PO SCH ×2 (07:38→11:55)
[2021-01-07] MEDS: INSULIN LISPRO 100 UNIT/1 ML 3ML VIAL SQ SCH ×2 (07:39→11:57)
[2021-01-07] MEDS: IRON SUCROSE 100 MG in SODIUM CHLORIDE 0.9% 100 ML 100 ML IV SCH (08:39)
[2021-01-07] MEDS: CLOPIDOGREL BISULFATE 75 MG TAB PO SCH (08:40)
[2021-01-07] MEDS: FAMOTIDINE 20 MG TAB PO SCH (08:40)
[2021-01-07] MEDS: DULOXETINE HCL 30 MG DELAYED RELEASE PO SCH (08:40)
[2021-01-07] MEDS: TAMSULOSIN HCL 0.4 MG CAP PO SCH (08:40)
[2021-01-07] MEDS: FINASTERIDE 5 MG TAB PO SCH (08:40)
[2021-01-07 09:52] VITALS: BP 134/61
[2021-01-07] MEDS ORDERED: VENELEX OINTMEN60 GM TP (11:16)
[2021-01-07] MEDS ORDERED: CARAFATE1 GM PO (11:16)
[2021-01-07] MEDS ORDERED: FEROSUL325 MG PO (11:20)
[2021-01-07 11:25] VITALS: BP 108/66
[2021-01-07] MEDS: BALSAM PERU/CASTOR OIL 60 GM OINT...G. TP SCH (12:24)
[2021-01-07] MEDS ORDERED: NYSTATIN 100,000 UNITS/GM CRM 30GM TUBE TOP SCH (17:00)
== END 2021-01-07 15:08 | DRG 871 ==
LOC: ER 12:42 → ERHOLD 16:36 → IMCU 12-30 08:13 → MED/SURG2 12-31 23:00
PROVIDERS: ADMIT Internal Medicine; ATTEND Internal Medicine
PROC: 02HV33Z Insertion of Infusion Device into Superior Vena Cava, Percutaneous Approach (ICD-10-PCS; 2020-12-30)
PROC: B548ZZA Ultrasonography of Superior Vena Cava, Guidance (ICD-10-PCS; 2020-12-30)
PROC: 0J990ZZ Drainage of Buttock Subcutaneous Tissue and Fascia, Open Approach (ICD-10-PCS; 2020-12-31)
PROC: 30233N1 Transfusion of Nonautologous Red Blood Cells into Peripheral Vein, Percutaneous Approach (ICD-10-PCS; principal; 2021-01-01)
PROC: 0D598ZZ Destruction of Duodenum, Via Natural or Artificial Opening Endoscopic (ICD-10-PCS; 2021-01-02)
DX: A41.9 Sepsis, unspecified organism (principal); J18.9 Pneumonia, unspecified organism; J96.01 Acute respiratory failure with hypoxia; J69.0 Pneumonitis due to inhalation of food and vomit; K26.0 Acute duodenal ulcer with hemorrhage; L03.317 Cellulitis of buttock; N17.9 Acute kidney failure, unspecified; L02.31 Cutaneous abscess of buttock; M62.82 Rhabdomyolysis; K52.1 Toxic gastroenteritis and colitis; N18.4 Chronic kidney disease, stage 4 (severe); R65.20 Severe sepsis without septic shock; I48.0 Paroxysmal atrial fibrillation; I13.10 Hypertensive heart and chronic kidney disease without heart failure, with stage 1 through stage 4 chronic kidney disease, or unspecified chronic kidney disease; E11.22 Type 2 diabetes mellitus with diabetic chronic kidney disease; I25.10 Atherosclerotic heart disease of native coronary artery without angina pectoris; Z95.5 Presence of coronary angioplasty implant and graft; E78.5 Hyperlipidemia, unspecified; Z87.440 Personal history of urinary (tract) infections; E03.9 Hypothyroidism, unspecified; N40.0 Benign prostatic hyperplasia without lower urinary tract symptoms; F41.9 Anxiety disorder, unspecified; F32.A Depression, unspecified; T36.95XA Adverse effect of unspecified systemic antibiotic, initial encounter; N31.9 Neuromuscular dysfunction of bladder, unspecified; N28.1 Cyst of kidney, acquired; B96.89 Other specified bacterial agents as the cause of diseases classified elsewhere; D63.8 Anemia in other chronic diseases classified elsewhere; Z91.81 History of falling; E11.42 Type 2 diabetes mellitus with diabetic polyneuropathy; D50.0 Iron deficiency anemia secondary to blood loss (chronic); N39.498 Other specified urinary incontinence; Z96.0 Presence of urogenital implants; K20.90 Esophagitis, unspecified without bleeding; K44.9 Diaphragmatic hernia without obstruction or gangrene; K29.70 Gastritis, unspecified, without bleeding; B95.61 Methicillin susceptible Staphylococcus aureus infection as the cause of diseases classified elsewhere
CPT/HCPCS: 36415; 43255; 71045; 71250; 74176; 76700; 76882; 80048; 80053; 80061; 81001; 82140; 82550; 82553; 82607; 82746; 82948; 83036; 83540; 83605; 83735; 84100; 84443; 84466; 84484; 85025; 85045; 85610; 86850; 86900; 86920; 87040; 87045; 87071; 87075; 87086; 87186; 87205; 87493; 93005; 93306; 94799; 96361; 96372; 97139; 99251; 99285; J0171; J0692; J1160; J1165; J1756; J2001; J2020; J2060; J2185; J2270; J2405; J3010; J3370; J3430; J7050; J7121; P9016; U0002

== ENCOUNTER 2021-04-15 16:52 | Inpatient (IN) | payer MEDICARE, BC ==
[~2021-04-15] VITALS: Ht 167.6 cm; Wt 76.7 kg
[~2021-04-15 16:52] MED LIST changes: +FEROSUL325 MG PO; +VENELEX OINTMEN60 GM TP
[2021-04-15] MEDS ORDERED: SODIUM CHLORIDE 0.9% 500ML 500 ML IV ONE (17:15)
[2021-04-15] MEDS ORDERED: SODIUM CHLORIDE 0.9% 1000ML 1,000 ML IV ONE ×2 (17:15)
[2021-04-15] MEDS: CEFEPIME 1 GM in SODIUM CHLORIDE 0.9% 50ML 50 ML IV SCH (17:20)
[2021-04-15 17:33] LABS: BASOPHILS % 0.2 % (0.0-1.0); EOSINOPHILS # (AUTO) 0.3 (0.0-0.4); EOSINOPHILS % 1.4 % (0.0-6.0); HEMATOCRIT 25.2 % (38.2-49.6); HEMOGLOBIN 7.7 g/dL (14.0-18.0); LYMPHOCYTES # (AUTO) 1.1 (1.0-3.2); LYMPHOCYTES % 4.9 % (18.0-39.1); MEAN CORPUSCULAR HEMOGLOBIN 27.9 pg (28-32); MEAN CORPUSCULAR HGB CONC 30.6 g/dL (31-35); MEAN CORPUSCULAR VOLUME 91.3 fL (81-99); MONOCYTES # (AUTO) 1.8 (0.2-0.8); NEUTROPHILS # (AUTO) 18.4 (2.1-6.9); NEUTROPHILS % 82.5 % (38.7-80.0); PLATELET COUNT 332 x10e3/uL (140-360); RED BLOOD COUNT 2.76 x10e6/uL (4.3-5.7); RED CELL DISTRIBUTION WIDTH 15.4 % (11.7-14.4)
[2021-04-15 17:35] LABS: CLARITY,URINE HAZY (CLEAR); COLOR,URINE YELLOW (YELLOW); KETONES,URINE NEGATIVE (NEGATIVE); LEUKOCYTE ESTERASE ,URINE LARGE (NEGATIVE); NITRITE,URINE POSITIVE (NEGATIVE); PROTEIN,URINE DIPSTICK NEGATIVE (NEGATIVE)
[2021-04-15 17:36] LABS: URINE UROBILINOGEN 0.2 mg/dL (0.2 - 1)
[2021-04-15 17:43] LABS: BACTERIA,URINE MODERATE /HPF; WBC,URINE (MAN) >50 /HPF (0-5)
[2021-04-15 17:52] LABS: ALBUMIN 1.5 g/dL (3.5-5.0); ALBUMIN/GLOBULIN RATIO 0.4 (0.8-2.0); ANION GAP 16.3 mmol/L (8-16); CALCIUM 8.9 mg/dL (8.4-10.2); CREATININE, SERUM 1.98 mg/dL (0.72-1.25); POTASSIUM 4.3 mmol/L (3.5-5.1)
[2021-04-15 18:00] LABS: CREATINE KINASE MB 5.2 ng/mL (0-5.0)
[2021-04-15] MEDS ORDERED: ONDANSETRON HCL INJ 2MG/ML 2ML 2 MG/ML VIAL IV PRN (18:30)
[2021-04-15] MEDS ORDERED: ACETAMINOPHEN 325 MG TAB PO PRN (18:30)
[2021-04-15] MEDS ORDERED: DEXTROSE 50% SYRINGE 50 ML IV ONE (18:30)
[2021-04-15] MEDS ORDERED: DEXTROSE 50% SYRINGE 50 ML IV PRN (18:30)
[2021-04-15 20:50] VITALS: BP 89/51
[2021-04-15 21:00] VITALS: BP 89/51
[2021-04-15] MEDS: INSULIN REGULAR, HUMAN 100 UNIT/1 ML SQ SCH (21:00)
[2021-04-15] MEDS: SODIUM CHLORIDE 0.9% 1000ML 1,000 ML IV SCH (21:34)
[2021-04-15] MEDS ORDERED: CEFEPIME 1 GM in SODIUM CHLORIDE 0.9% 50ML 50 ML IV SCH (22:00)
[2021-04-16] VITALS (12 sets, daily range): BP systolic 92–126; BP diastolic 51–85
[2021-04-16] MEDS: CEFEPIME 1 GM in SODIUM CHLORIDE 0.9% 50ML 50 ML IV SCH ×2 (02:16→09:41)
[2021-04-16 02:49] LABS: CREATINE KINASE MB 4.6 ng/mL (0-5.0)
[2021-04-16] MEDS ORDERED: LANTUS 3ML100 UNITS/ SQ (03:21)
[2021-04-16] MEDS ORDERED: HYDROCODON-ACE1 EA11 PO (03:21)
[2021-04-16] MEDS ORDERED: AMIODARONE HCL100 MG PO (03:21)
[2021-04-16] MEDS ORDERED: MELATONIN3 MG PO (03:21)
[2021-04-16] MEDS ORDERED: ASCORBIC ACID500 M2 PO (03:21)
[2021-04-16] MEDS ORDERED: METOPROLOL TART25 MG PO (03:21)
[2021-04-16] MEDS ORDERED: MULTI-VITAMIN1 EACH PO (03:21)
[2021-04-16] MEDS ORDERED: PEPCID20 MG PO (03:21)
[2021-04-16] MEDS ORDERED: LACTULOSE20 GM/30 M PO (03:21)
[2021-04-16 05:09] LABS: BASOPHILS % 0.2 % (0.0-1.0); EOSINOPHILS # (AUTO) 0.3 (0.0-0.4); EOSINOPHILS % 1.9 % (0.0-6.0); HEMATOCRIT 21.7 % (38.2-49.6); LYMPHOCYTES # (AUTO) 0.7 (1.0-3.2); LYMPHOCYTES % 5.2 % (18.0-39.1); MEAN CORPUSCULAR HEMOGLOBIN 27.9 pg (28-32); MEAN CORPUSCULAR HGB CONC 31.3 g/dL (31-35); MEAN CORPUSCULAR VOLUME 88.9 fL (81-99); MONOCYTES % 7.6 % (4.4-11.3); NEUTROPHILS % 82.3 % (38.7-80.0); PLATELET COUNT 308 x10e3/uL (140-360); RED BLOOD COUNT 2.44 x10e6/uL (4.3-5.7); RED CELL DISTRIBUTION WIDTH 15.4 % (11.7-14.4)
[2021-04-16 05:21] LABS: HEMOGLOBIN 6.8 g/dL (14.0-18.0)
[2021-04-16] MEDS: SODIUM CHLORIDE 0.9% 1000ML 1,000 ML IV SCH (05:30)
[2021-04-16 05:54] LABS: ALBUMIN 1.3 g/dL (3.5-5.0); ALBUMIN/GLOBULIN RATIO 0.4 (0.8-2.0); ANION GAP 11.6 mmol/L (8-16); CALCIUM 8.1 mg/dL (8.4-10.2); POTASSIUM 3.6 mmol/L (3.5-5.1)
[2021-04-16 06:46] LABS: CREATININE, SERUM 1.46 mg/dL (0.72-1.25)
[2021-04-16] MEDS: INSULIN REGULAR, HUMAN 100 UNIT/1 ML SQ SCH ×5 (07:30→21:00)
[2021-04-16] MEDS ORDERED: ACETAMINOPHEN 325 MG TAB PO STA (08:20)
[2021-04-16] MEDS ORDERED: SODIUM CHLORIDE 0.9% 250ML 250 ML IV ONE (08:30)
[2021-04-16] MEDS ORDERED: DEXTROSE 50% SYRINGE 50 ML IV PRN (08:30)
[2021-04-16] MEDS: DOCUSATE SODIUM 100 MG CAP PO SCH (09:00)
[2021-04-16] MEDS: AMIODARONE HCL 200 MG TAB PO SCH (09:40)
[2021-04-16] MEDS: LACTULOSE SYRUP 20 GM/30 ML UDC PO SCH (09:40)
[2021-04-16] MEDS: LEVOTHYROXINE SODIUM 50 MCG TAB PO SCH (09:40)
[2021-04-16] MEDS: CLOPIDOGREL BISULFATE 75 MG TAB PO SCH (09:41)
[2021-04-16] MEDS: ASCORBIC ACID 500 MG TAB PO SCH ×2 (09:41→16:29)
[2021-04-16] MEDS: FAMOTIDINE 20 MG TAB PO SCH ×2 (09:41→16:29)
[2021-04-16] MEDS: MULTIVITAMINS/MINERALS TAB PO SCH (09:41)
[2021-04-16] MEDS ORDERED: LORAZEPAM 0.5 MG TAB PO SCH (10:00)
[2021-04-16 10:07] LABS: CREATINE KINASE MB 4.5 ng/mL (0-5.0)
[2021-04-16] MEDS: SUCRALFATE 1 GM TAB PO SCH ×3 (11:35→21:36)
[2021-04-16] MEDS ORDERED: SODIUM CHLORIDE 0.9% 1000ML 500 ML IV ONE (15:00)
[2021-04-16] MEDS: MIDODRINE HCL 5 MG TABLET PO SCH (15:17)
[2021-04-16] MEDS: MEROPENEM 1 GM in SODIUM CHLORIDE 0.9% 100 ML IV SCH (15:57)
[2021-04-16] MEDS: DULOXETINE HCL 30 MG DELAYED RELEASE PO SCH (16:29)
[2021-04-16] MEDS: SPIRONOLACTONE 25 MG TAB PO SCH (16:29)
[2021-04-16] MEDS: LACTATED RINGER'S 1,000 ML INJ SCH (16:30)
[2021-04-16] MEDS: METOPROLOL SUCCINATE 25 MG TAB XL PO SCH (16:30)
[2021-04-16] MEDS ORDERED: SODIUM CHLORIDE 0.9% 500ML 500 ML IV ONE (17:00)
[2021-04-16] MEDS ORDERED: NOREPINEPHRINE 8 MG/D5W 250 ML 250 ML IV PRN (18:00)
[2021-04-16 18:11] LABS: CREATINE KINASE MB 3.4 ng/mL (0-5.0)
[2021-04-16] MEDS: ATORVASTATIN 20 MG TAB PO SCH (21:37)
[2021-04-16] MEDS: INSULIN GLARGINE 100 UNITS/ML VIAL SQ SCH (21:37)
[2021-04-17] VITALS (10 sets, daily range): BP systolic 98–134; BP diastolic 51–79
[2021-04-17] MEDS: MEROPENEM 1 GM in SODIUM CHLORIDE 0.9% 100 ML IV SCH ×2 (02:28→13:09)
[2021-04-17] MEDS: LEVOTHYROXINE SODIUM 50 MCG TAB PO SCH (06:23)
[2021-04-17] MEDS: LACTATED RINGER'S 1,000 ML INJ SCH ×2 (06:23→20:43)
[2021-04-17 06:27] LABS: BASOPHILS % 0.3 % (0.0-1.0); EOSINOPHILS # (AUTO) 0.3 (0.0-0.4); EOSINOPHILS % 2.4 % (0.0-6.0); HEMATOCRIT 24.7 % (38.2-49.6); HEMOGLOBIN 7.5 g/dL (14.0-18.0); LYMPHOCYTES # (AUTO) 0.4 (1.0-3.2); LYMPHOCYTES % 3.2 % (18.0-39.1); MEAN CORPUSCULAR HGB CONC 30.4 g/dL (31-35); MEAN CORPUSCULAR VOLUME 95.4 fL (81-99); MONOCYTES # (AUTO) 0.8 (0.2-0.8); NEUTROPHILS # (AUTO) 11.4 (2.1-6.9); NEUTROPHILS % 83.5 % (38.7-80.0); PLATELET COUNT 287 x10e3/uL (140-360); RED BLOOD COUNT 2.59 x10e6/uL (4.3-5.7); RED CELL DISTRIBUTION WIDTH 15.5 % (11.7-14.4)
[2021-04-17 06:54] LABS: ALBUMIN 1.3 g/dL (3.5-5.0); ALBUMIN/GLOBULIN RATIO 0.4 (0.8-2.0); ANION GAP 12.1 mmol/L (8-16); CALCIUM 8.1 mg/dL (8.4-10.2); CREATININE, SERUM 1.27 mg/dL (0.72-1.25); POTASSIUM 4.1 mmol/L (3.5-5.1)
[2021-04-17] MEDS: INSULIN REGULAR, HUMAN 100 UNIT/1 ML SQ SCH ×4 (07:25→21:00)
[2021-04-17] MEDS: IRON SUCROSE 100 MG in SODIUM CHLORIDE 0.9% 100 ML 100 ML IV SCH (08:14)
[2021-04-17] MEDS: LACTULOSE SYRUP 20 GM/30 ML UDC PO SCH (08:14)
[2021-04-17] MEDS: AMIODARONE HCL 200 MG TAB PO SCH ×2 (08:14→17:00)
[2021-04-17] MEDS: MIDODRINE HCL 5 MG TABLET PO SCH ×3 (08:14→17:00)
[2021-04-17] MEDS: DOCUSATE SODIUM 100 MG CAP PO SCH (08:14)
[2021-04-17] MEDS: FERROUS SULFATE 325 MG TAB PO SCH (08:14)
[2021-04-17] MEDS: SUCRALFATE 1 GM TAB PO SCH ×4 (08:14→21:21)
[2021-04-17] MEDS: FAMOTIDINE 20 MG TAB PO SCH ×2 (08:14→17:00)
[2021-04-17] MEDS: MULTIVITAMINS/MINERALS TAB PO SCH (08:14)
[2021-04-17] MEDS: FINASTERIDE 5 MG TAB PO SCH (08:14)
[2021-04-17] MEDS: SPIRONOLACTONE 25 MG TAB PO SCH ×2 (08:14→17:00)
[2021-04-17] MEDS: CLOPIDOGREL BISULFATE 75 MG TAB PO SCH (08:14)
[2021-04-17] MEDS: PANTOPRAZOLE SOD 40 MG TABEC PO SCH (08:14)
[2021-04-17] MEDS: DULOXETINE HCL 30 MG DELAYED RELEASE PO SCH ×2 (08:14→17:00)
[2021-04-17] MEDS: SODIUM BICARBONATE 650 MG TAB PO SCH (08:14)
[2021-04-17] MEDS: TAMSULOSIN HCL 0.4 MG CAP PO SCH (08:14)
[2021-04-17] MEDS: ASCORBIC ACID 500 MG TAB PO SCH ×2 (08:15→17:00)
[2021-04-17] MEDS: METOPROLOL SUCCINATE 25 MG TAB XL PO SCH ×2 (08:15→17:00)
[2021-04-17] MEDS ORDERED: APIXAB 2.5 MG TABLET PO SCH (14:00)
[2021-04-17] MEDS: DOXYCYCLINE HYCLATE TABLET 100 MG TAB PO SCH ×2 (15:29→21:21)
[2021-04-17] MEDS: APIXAB 2.5 MG TABLET PO SCH (17:00)
[2021-04-17] MEDS ORDERED: LACTATED RINGER'S 1,000 ML ONE (20:25)
[2021-04-17] MEDS: INSULIN GLARGINE 100 UNITS/ML VIAL SQ SCH (21:00)
[2021-04-17] MEDS: ATORVASTATIN 20 MG TAB PO SCH (21:21)
[2021-04-18] VITALS (14 sets, daily range): BP systolic 82–128; BP diastolic 43–71
[2021-04-18] MEDS: MEROPENEM 1 GM in SODIUM CHLORIDE 0.9% 100 ML IV SCH (01:50)
[2021-04-18 05:38] LABS: BASOPHILS % 0.3 % (0.0-1.0); EOSINOPHILS # (AUTO) 0.3 (0.0-0.4); EOSINOPHILS % 3.2 % (0.0-6.0); LYMPHOCYTES # (AUTO) 0.7 (1.0-3.2); LYMPHOCYTES % 6.6 % (18.0-39.1); MEAN CORPUSCULAR HEMOGLOBIN 28.9 pg (28-32); MEAN CORPUSCULAR VOLUME 96.2 fL (81-99); MONOCYTES # (AUTO) 0.7 (0.2-0.8); MONOCYTES % 6.6 % (4.4-11.3); NEUTROPHILS % 78.3 % (38.7-80.0); PLATELET COUNT 243 x10e3/uL (140-360); RED BLOOD COUNT 2.39 x10e6/uL (4.3-5.7); RED CELL DISTRIBUTION WIDTH 15.3 % (11.7-14.4)
[2021-04-18 05:41] LABS: HEMOGLOBIN 6.9 g/dL (14.0-18.0)
[2021-04-18] MEDS: APIXAB 2.5 MG TABLET PO SCH ×2 (05:44→17:42)
[2021-04-18] MEDS: LEVOTHYROXINE SODIUM 50 MCG TAB PO SCH (05:44)
[2021-04-18 05:56] LABS: ALBUMIN/GLOBULIN RATIO 0.3 (0.8-2.0); ANION GAP 13.8 mmol/L (8-16); CALCIUM 7.3 mg/dL (8.4-10.2); CREATININE, SERUM 0.84 mg/dL (0.72-1.25); POTASSIUM 4.8 mmol/L (3.5-5.1)
[2021-04-18] MEDS ORDERED: SODIUM CHLORIDE 0.9% 250ML 250 ML IV ONE (06:45)
[2021-04-18] MEDS: INSULIN REGULAR, HUMAN 100 UNIT/1 ML SQ SCH ×4 (07:23→21:30)
[2021-04-18] MEDS: TAMSULOSIN HCL 0.4 MG CAP PO SCH (08:12)
[2021-04-18] MEDS: MULTIVITAMINS/MINERALS TAB PO SCH (08:12)
[2021-04-18] MEDS: DOCUSATE SODIUM 100 MG CAP PO SCH (08:12)
[2021-04-18] MEDS: DULOXETINE HCL 30 MG DELAYED RELEASE PO SCH ×2 (08:12→17:42)
[2021-04-18] MEDS: FERROUS SULFATE 325 MG TAB PO SCH (08:12)
[2021-04-18] MEDS: SUCRALFATE 1 GM TAB PO SCH ×4 (08:12→21:28)
[2021-04-18] MEDS: SPIRONOLACTONE 25 MG TAB PO SCH (08:12)
[2021-04-18] MEDS: AMIODARONE HCL 200 MG TAB PO SCH ×2 (08:12→17:42)
[2021-04-18] MEDS: MIDODRINE HCL 5 MG TABLET PO SCH ×3 (08:12→17:42)
[2021-04-18] MEDS: LACTULOSE SYRUP 20 GM/30 ML UDC PO SCH (08:12)
[2021-04-18] MEDS: IRON SUCROSE 100 MG in SODIUM CHLORIDE 0.9% 100 ML 100 ML IV SCH (08:12)
[2021-04-18] MEDS: LACTATED RINGER'S 1,000 ML INJ SCH (08:12)
[2021-04-18] MEDS: DOXYCYCLINE HYCLATE TABLET 100 MG TAB PO SCH (08:13)
[2021-04-18] MEDS: FAMOTIDINE 20 MG TAB PO SCH ×2 (08:13→17:42)
[2021-04-18] MEDS: COLLAGENASE 5 GM TUBE TOP SCH (08:13)
[2021-04-18] MEDS: METOPROLOL SUCCINATE 25 MG TAB XL PO SCH (08:13)
[2021-04-18] MEDS: BALSAM PERU/CASTOR OIL 60 GM OINT...G. TP SCH (08:13)
[2021-04-18] MEDS: PANTOPRAZOLE SOD 40 MG TABEC PO SCH (08:13)
[2021-04-18] MEDS: CLOPIDOGREL BISULFATE 75 MG TAB PO SCH (08:13)
[2021-04-18] MEDS: ASCORBIC ACID 500 MG TAB PO SCH ×2 (08:13→17:42)
[2021-04-18] MEDS: FINASTERIDE 5 MG TAB PO SCH (08:13)
[2021-04-18] MEDS: SODIUM BICARBONATE 650 MG TAB PO SCH ×2 (08:13→17:42)
[2021-04-18] MEDS ORDERED: SODIUM CHLORIDE 0.9% 250ML 250 ML ONE (14:36)
[2021-04-18] MEDS: SODIUM CHLORIDE 0.9% 1000ML 1,000 ML IV SCH (14:41)
[2021-04-18 15:00] LABS: INR 1.32; PROTHROMBIN TIME 17.3 seconds (11.9-14.5)
[2021-04-18 15:29] LABS: FREE T4 (FREE THYROXINE) 0.74 ng/dL (0.8-1.8); THYROID STIMULATING HORMONE 10.955 uIU/mL (0.350-4.940)
[2021-04-18] MEDS: LINEZOLID 600 MG TAB PO SCH (17:42)
[2021-04-18] MEDS: ATORVASTATIN 20 MG TAB PO SCH (21:28)
[2021-04-18] MEDS: CEFEPIME 1 GM in SODIUM CHLORIDE 0.9% 50ML 50 ML IV SCH (21:28)
[2021-04-18] MEDS: INSULIN GLARGINE 100 UNITS/ML VIAL SQ SCH (21:31)
[2021-04-19] MEDS: SODIUM CHLORIDE 0.9% 1000ML 1,000 ML IV SCH (06:17)
[2021-04-19] MEDS: LEVOTHYROXINE SODIUM 50 MCG TAB PO SCH (06:17)
[2021-04-19 06:18] LABS: BASOPHILS % 0.3 % (0.0-1.0); EOSINOPHILS # (AUTO) 0.3 (0.0-0.4); EOSINOPHILS % 2.6 % (0.0-6.0); HEMATOCRIT 28.1 % (38.2-49.6); HEMOGLOBIN 8.7 g/dL (14.0-18.0); LYMPHOCYTES # (AUTO) 0.7 (1.0-3.2); LYMPHOCYTES % 5.9 % (18.0-39.1); MEAN CORPUSCULAR HEMOGLOBIN 29.4 pg (28-32); MEAN CORPUSCULAR VOLUME 94.9 fL (81-99); MONOCYTES # (AUTO) 0.8 (0.2-0.8); MONOCYTES % 6.7 % (4.4-11.3); NEUTROPHILS # (AUTO) 9.2 (2.1-6.9); PLATELET COUNT 170 x10e3/uL (140-360); RED BLOOD COUNT 2.96 x10e6/uL (4.3-5.7)
[2021-04-19] MEDS: APIXAB 2.5 MG TABLET PO SCH ×2 (06:44→17:04)
[2021-04-19 06:48] LABS: ALBUMIN 1.2 g/dL (3.5-5.0); ALBUMIN/GLOBULIN RATIO 0.4 (0.8-2.0); ANION GAP 11.3 mmol/L (8-16); CALCIUM 7.9 mg/dL (8.4-10.2); CREATININE, SERUM 1.1 mg/dL (0.72-1.25); POTASSIUM 4.3 mmol/L (3.5-5.1)
[2021-04-19] MEDS: INSULIN REGULAR, HUMAN 100 UNIT/1 ML SQ SCH ×4 (07:30→21:30)
[2021-04-19 07:50] VITALS: BP 107/71
[2021-04-19 08:25] VITALS: BP 107/71
[2021-04-19] MEDS: MIDODRINE HCL 5 MG TABLET PO SCH ×3 (08:47→17:04)
[2021-04-19] MEDS: IRON SUCROSE 100 MG in SODIUM CHLORIDE 0.9% 100 ML 100 ML IV SCH (08:47)
[2021-04-19] MEDS: SUCRALFATE 1 GM TAB PO SCH ×4 (08:47→21:30)
[2021-04-19] MEDS: CEFEPIME 1 GM in SODIUM CHLORIDE 0.9% 50ML 50 ML IV SCH ×2 (08:47→21:30)
[2021-04-19] MEDS: AMIODARONE HCL 200 MG TAB PO SCH ×2 (08:47→17:04)
[2021-04-19] MEDS: DULOXETINE HCL 30 MG DELAYED RELEASE PO SCH ×2 (08:47→17:04)
[2021-04-19] MEDS: LACTULOSE SYRUP 20 GM/30 ML UDC PO SCH (08:47)
[2021-04-19] MEDS: FERROUS SULFATE 325 MG TAB PO SCH (08:47)
[2021-04-19] MEDS: DOCUSATE SODIUM 100 MG CAP PO SCH (08:47)
[2021-04-19] MEDS: MULTIVITAMINS/MINERALS TAB PO SCH (08:47)
[2021-04-19] MEDS: PANTOPRAZOLE SOD 40 MG TABEC PO SCH (08:48)
[2021-04-19] MEDS: ASCORBIC ACID 500 MG TAB PO SCH ×2 (08:48→17:04)
[2021-04-19] MEDS: LINEZOLID 600 MG TAB PO SCH ×2 (08:48→17:04)
[2021-04-19] MEDS: FINASTERIDE 5 MG TAB PO SCH (08:48)
[2021-04-19] MEDS: SODIUM BICARBONATE 650 MG TAB PO SCH ×2 (08:48→17:04)
[2021-04-19] MEDS: FAMOTIDINE 20 MG TAB PO SCH ×2 (08:48→17:04)
[2021-04-19] MEDS: BALSAM PERU/CASTOR OIL 60 GM OINT...G. TP SCH (08:48)
[2021-04-19] MEDS: CLOPIDOGREL BISULFATE 75 MG TAB PO SCH (08:48)
[2021-04-19] MEDS: COLLAGENASE 5 GM TUBE TOP SCH (08:48)
[2021-04-19 12:42] VITALS: BP 85/65
[2021-04-19] MEDS ORDERED: FUROSEMIDE INJ 10 MG/ML 4 ML VIAL IV NR (13:45)
[2021-04-19 14:00] LABS: BLOOD UREA NITROGEN 23 mg/dL (7-26); GLUCOSE 115 mg/dL (74-118); OSMOLALITY,SERUM 262 mOsm/kg (278-305); SODIUM 128 mmol/L (136-145)
[2021-04-19 16:00] VITALS: BP 96/66
[2021-04-19] MEDS ORDERED: FUROSEMIDE INJ 10 MG/ML 4 ML VIAL IV ONE (18:30)
[2021-04-19 20:00] VITALS: BP 107/69
[2021-04-19 21:00] VITALS: BP 107/69
[2021-04-19] MEDS: INSULIN GLARGINE 100 UNITS/ML VIAL SQ SCH (21:30)
[2021-04-19] MEDS: ATORVASTATIN 20 MG TAB PO SCH (21:30)
[2021-04-20] VITALS (8 sets, daily range): BP systolic 107–156; BP diastolic 53–105
[2021-04-20 05:47] LABS: BASOPHILS # (AUTO) 0.1 (0.0-0.1); BASOPHILS % 0.4 % (0.0-1.0); EOSINOPHILS # (AUTO) 0.3 (0.0-0.4); EOSINOPHILS % 2.6 % (0.0-6.0); HEMATOCRIT 29.3 % (38.2-49.6); HEMOGLOBIN 9.3 g/dL (14.0-18.0); LYMPHOCYTES # (AUTO) 0.7 (1.0-3.2); LYMPHOCYTES % 5.7 % (18.0-39.1); MEAN CORPUSCULAR HEMOGLOBIN 29.3 pg (28-32); MEAN CORPUSCULAR HGB CONC 31.7 g/dL (31-35); MEAN CORPUSCULAR VOLUME 92.4 fL (81-99); MONOCYTES # (AUTO) 0.8 (0.2-0.8); MONOCYTES % 6.2 % (4.4-11.3); NEUTROPHILS # (AUTO) 10.5 (2.1-6.9); NEUTROPHILS % 80.9 % (38.7-80.0); PLATELET COUNT 190 x10e3/uL (140-360); RED BLOOD COUNT 3.17 x10e6/uL (4.3-5.7); RED CELL DISTRIBUTION WIDTH 14.9 % (11.7-14.4)
[2021-04-20] MEDS: LEVOTHYROXINE SODIUM 50 MCG TAB PO SCH (06:20)
[2021-04-20] MEDS: APIXAB 2.5 MG TABLET PO SCH ×2 (06:20→17:40)
[2021-04-20 06:24] LABS: ALBUMIN 1.4 g/dL (3.5-5.0); ALBUMIN/GLOBULIN RATIO 0.4 (0.8-2.0); ANION GAP 12.1 mmol/L (8-16); CALCIUM 8.3 mg/dL (8.4-10.2); CREATININE, SERUM 1.13 mg/dL (0.72-1.25); POTASSIUM 4.1 mmol/L (3.5-5.1)
[2021-04-20] MEDS ORDERED: SODIUM CHLORIDE 0.9% 250ML 250 ML ONE ×2 (07:23→21:53)
[2021-04-20] MEDS: INSULIN REGULAR, HUMAN 100 UNIT/1 ML SQ SCH ×4 (07:30→22:36)
[2021-04-20] MEDS: AMIODARONE HCL 200 MG TAB PO SCH (08:30)
[2021-04-20] MEDS: LINEZOLID 600 MG TAB PO SCH ×2 (08:30→17:40)
[2021-04-20] MEDS: FERROUS SULFATE 325 MG TAB PO SCH (08:30)
[2021-04-20] MEDS: SUCRALFATE 1 GM TAB PO SCH ×4 (08:30→21:58)
[2021-04-20] MEDS: FINASTERIDE 5 MG TAB PO SCH (08:30)
[2021-04-20] MEDS: DULOXETINE HCL 30 MG DELAYED RELEASE PO SCH ×2 (08:30→17:40)
[2021-04-20] MEDS: FAMOTIDINE 20 MG TAB PO SCH ×2 (08:30→17:40)
[2021-04-20] MEDS: SODIUM BICARBONATE 650 MG TAB PO SCH ×2 (08:30→17:40)
[2021-04-20] MEDS: CEFEPIME 1 GM in SODIUM CHLORIDE 0.9% 50ML 50 ML IV SCH ×2 (08:30→21:58)
[2021-04-20] MEDS: MIDODRINE HCL 5 MG TABLET PO SCH ×4 (08:30→17:40)
[2021-04-20] MEDS: LACTULOSE SYRUP 20 GM/30 ML UDC PO SCH (08:30)
[2021-04-20] MEDS: ASCORBIC ACID 500 MG TAB PO SCH ×2 (08:30→17:40)
[2021-04-20] MEDS: CLOPIDOGREL BISULFATE 75 MG TAB PO SCH (08:30)
[2021-04-20] MEDS: DOCUSATE SODIUM 100 MG CAP PO SCH (08:30)
[2021-04-20] MEDS: MULTIVITAMINS/MINERALS TAB PO SCH (08:30)
[2021-04-20] MEDS: PANTOPRAZOLE SOD 40 MG TABEC PO SCH (08:30)
[2021-04-20] MEDS: IRON SUCROSE 100 MG in SODIUM CHLORIDE 0.9% 100 ML 100 ML IV SCH (10:00)
[2021-04-20] MEDS: BALSAM PERU/CASTOR OIL 60 GM OINT...G. TP SCH (10:00)
[2021-04-20] MEDS: COLLAGENASE 5 GM TUBE TOP SCH (10:00)
[2021-04-20] MEDS ORDERED: FUROSEMIDE INJ 10 MG/ML 4 ML VIAL IV ONE (10:00)
[2021-04-20] MEDS: DIGOXIN 0.125 MG TAB PO SCH (14:45)
[2021-04-20] MEDS: METOPROLOL TARTRATE 25 MG TAB PO SCH (17:40)
[2021-04-20] MEDS: ATORVASTATIN 20 MG TAB PO SCH (21:58)
[2021-04-20] MEDS: INSULIN GLARGINE 100 UNITS/ML VIAL SQ SCH (22:36)
[2021-04-21] VITALS (8 sets, daily range): BP systolic 111–147; BP diastolic 56–90
[2021-04-21 04:54] LABS: BASOPHILS # (AUTO) 0.1 (0.0-0.1); EOSINOPHILS # (AUTO) 0.3 (0.0-0.4); EOSINOPHILS % 2.8 % (0.0-6.0); HEMATOCRIT 30.3 % (38.2-49.6); HEMOGLOBIN 9.5 g/dL (14.0-18.0); LYMPHOCYTES % 8.1 % (18.0-39.1); MEAN CORPUSCULAR HEMOGLOBIN 29.6 pg (28-32); MEAN CORPUSCULAR HGB CONC 31.4 g/dL (31-35); MEAN CORPUSCULAR VOLUME 94.4 fL (81-99); MONOCYTES # (AUTO) 0.7 (0.2-0.8); NEUTROPHILS # (AUTO) 9.3 (2.1-6.9); PLATELET COUNT 209 x10e3/uL (140-360); RED BLOOD COUNT 3.21 x10e6/uL (4.3-5.7); RED CELL DISTRIBUTION WIDTH 15.4 % (11.7-14.4)
[2021-04-21] MEDS: LEVOTHYROXINE SODIUM 75 MCG TAB PO SCH (05:32)
[2021-04-21] MEDS: APIXAB 2.5 MG TABLET PO SCH ×2 (05:32→16:34)
[2021-04-21 05:35] LABS: ALBUMIN 1.4 g/dL (3.5-5.0); ALBUMIN/GLOBULIN RATIO 0.4 (0.8-2.0); ANION GAP 14.1 mmol/L (8-16); CALCIUM 8.4 mg/dL (8.4-10.2); CREATININE, SERUM 1.21 mg/dL (0.72-1.25); POTASSIUM 4.1 mmol/L (3.5-5.1)
[2021-04-21] MEDS: INSULIN REGULAR, HUMAN 100 UNIT/1 ML SQ SCH ×4 (07:30→21:00)
[2021-04-21] MEDS: SUCRALFATE 1 GM TAB PO SCH ×4 (08:30→21:35)
[2021-04-21] MEDS: BALSAM PERU/CASTOR OIL 60 GM OINT...G. TP SCH (09:00)
[2021-04-21] MEDS: COLLAGENASE 5 GM TUBE TOP SCH (09:00)
[2021-04-21] MEDS: MIDODRINE HCL 5 MG TABLET PO SCH ×3 (09:30→16:35)
[2021-04-21] MEDS: MULTIVITAMINS/MINERALS TAB PO SCH (10:00)
[2021-04-21] MEDS: METOPROLOL TARTRATE 25 MG TAB PO SCH ×2 (10:00→16:35)
[2021-04-21] MEDS: FINASTERIDE 5 MG TAB PO SCH (10:00)
[2021-04-21] MEDS: AMIODARONE HCL 200 MG TAB PO SCH (10:00)
[2021-04-21] MEDS: DIGOXIN 0.125 MG TAB PO SCH (10:00)
[2021-04-21] MEDS: SODIUM BICARBONATE 650 MG TAB PO SCH ×2 (10:00→16:34)
[2021-04-21] MEDS: CEFEPIME 1 GM in SODIUM CHLORIDE 0.9% 50ML 50 ML IV SCH ×2 (10:00→21:35)
[2021-04-21] MEDS: LACTULOSE SYRUP 20 GM/30 ML UDC PO SCH (10:00)
[2021-04-21] MEDS: DULOXETINE HCL 30 MG DELAYED RELEASE PO SCH ×2 (10:00→16:34)
[2021-04-21] MEDS: LINEZOLID 600 MG TAB PO SCH ×2 (10:00→16:34)
[2021-04-21] MEDS: DOCUSATE SODIUM 100 MG CAP PO SCH (10:00)
[2021-04-21] MEDS: FAMOTIDINE 20 MG TAB PO SCH ×2 (10:00→16:34)
[2021-04-21] MEDS: ASCORBIC ACID 500 MG TAB PO SCH ×2 (10:00→16:34)
[2021-04-21] MEDS: CLOPIDOGREL BISULFATE 75 MG TAB PO SCH (10:00)
[2021-04-21] MEDS: PANTOPRAZOLE SOD 40 MG TABEC PO SCH (10:00)
[2021-04-21] MEDS: FERROUS SULFATE 325 MG TAB PO SCH (10:00)
[2021-04-21] MEDS: IRON SUCROSE 100 MG in SODIUM CHLORIDE 0.9% 100 ML 100 ML IV SCH (13:03)
[2021-04-21] MEDS ORDERED: ONDANSETRON HCL 4 MG ORAL DISINTEGRATING TAB PO PRN (14:00)
[2021-04-21] MEDS: ATORVASTATIN 20 MG TAB PO SCH (21:35)
[2021-04-21] MEDS: INSULIN GLARGINE 100 UNITS/ML VIAL SQ SCH (21:49)
[2021-04-22] VITALS (9 sets, daily range): BP systolic 94–110; BP diastolic 54–74
[2021-04-22 05:01] LABS: BASOPHILS # (AUTO) 0.1 (0.0-0.1); BASOPHILS % 0.5 % (0.0-1.0); EOSINOPHILS # (AUTO) 0.5 (0.0-0.4); HEMATOCRIT 31.2 % (38.2-49.6); HEMOGLOBIN 9.7 g/dL (14.0-18.0); LYMPHOCYTES # (AUTO) 1.2 (1.0-3.2); LYMPHOCYTES % 7.9 % (18.0-39.1); MEAN CORPUSCULAR HEMOGLOBIN 29.4 pg (28-32); MEAN CORPUSCULAR HGB CONC 31.1 g/dL (31-35); MEAN CORPUSCULAR VOLUME 94.5 fL (81-99); MONOCYTES # (AUTO) 0.9 (0.2-0.8); MONOCYTES % 6.1 % (4.4-11.3); NEUTROPHILS # (AUTO) 12.1 (2.1-6.9); NEUTROPHILS % 79.8 % (38.7-80.0); PLATELET COUNT 217 x10e3/uL (140-360); RED CELL DISTRIBUTION WIDTH 15.3 % (11.7-14.4)
[2021-04-22 05:35] LABS: ALBUMIN 1.4 g/dL (3.5-5.0); ALBUMIN/GLOBULIN RATIO 0.4 (0.8-2.0); ANION GAP 11.1 mmol/L (8-16); CALCIUM 8.4 mg/dL (8.4-10.2); CREATININE, SERUM 1.24 mg/dL (0.72-1.25); POTASSIUM 4.1 mmol/L (3.5-5.1)
[2021-04-22] MEDS: LEVOTHYROXINE SODIUM 75 MCG TAB PO SCH (05:43)
[2021-04-22] MEDS: APIXAB 2.5 MG TABLET PO SCH ×2 (05:43→16:53)
[2021-04-22] MEDS: INSULIN REGULAR, HUMAN 100 UNIT/1 ML SQ SCH ×4 (07:30→21:00)
[2021-04-22] MEDS: SUCRALFATE 1 GM TAB PO SCH ×4 (08:11→21:02)
[2021-04-22] MEDS: MIDODRINE HCL 5 MG TABLET PO SCH ×3 (08:11→16:53)
[2021-04-22] MEDS: CEFEPIME 1 GM in SODIUM CHLORIDE 0.9% 50ML 50 ML IV SCH ×2 (08:30→21:02)
[2021-04-22] MEDS: METOPROLOL TARTRATE 25 MG TAB PO SCH ×2 (09:00→16:53)
[2021-04-22] MEDS: IRON SUCROSE 100 MG in SODIUM CHLORIDE 0.9% 100 ML 100 ML IV SCH (09:05)
[2021-04-22] MEDS: LACTULOSE SYRUP 20 GM/30 ML UDC PO SCH (09:05)
[2021-04-22] MEDS: DULOXETINE HCL 30 MG DELAYED RELEASE PO SCH ×2 (09:05→16:53)
[2021-04-22] MEDS: FERROUS SULFATE 325 MG TAB PO SCH (09:05)
[2021-04-22] MEDS: DOCUSATE SODIUM 100 MG CAP PO SCH (09:05)
[2021-04-22] MEDS: AMIODARONE HCL 200 MG TAB PO SCH (09:05)
[2021-04-22] MEDS: DIGOXIN 0.125 MG TAB PO SCH (09:05)
[2021-04-22] MEDS: COLLAGENASE 5 GM TUBE TOP SCH (09:06)
[2021-04-22] MEDS: SODIUM BICARBONATE 650 MG TAB PO SCH ×2 (09:06→16:53)
[2021-04-22] MEDS: PANTOPRAZOLE SOD 40 MG TABEC PO SCH (09:06)
[2021-04-22] MEDS: ASCORBIC ACID 500 MG TAB PO SCH ×2 (09:06→16:53)
[2021-04-22] MEDS: LINEZOLID 600 MG TAB PO SCH ×2 (09:06→16:53)
[2021-04-22] MEDS: CLOPIDOGREL BISULFATE 75 MG TAB PO SCH (09:06)
[2021-04-22] MEDS: MULTIVITAMINS/MINERALS TAB PO SCH (09:06)
[2021-04-22] MEDS: FINASTERIDE 5 MG TAB PO SCH (09:06)
[2021-04-22] MEDS: BALSAM PERU/CASTOR OIL 60 GM OINT...G. TP SCH (09:06)
[2021-04-22] MEDS: ATORVASTATIN 20 MG TAB PO SCH (21:02)
[2021-04-23] MEDS: COLLAGENASE 5 GM TUBE TOP SCH ×3 (00:41→12:53)
[2021-04-23] MEDS: BALSAM PERU/CASTOR OIL 60 GM OINT...G. TP SCH ×2 (00:41→09:58)
[2021-04-23 00:49] VITALS: BP 117/73
[2021-04-23] MEDS: LEVOTHYROXINE SODIUM 75 MCG TAB PO SCH (05:59)
[2021-04-23] MEDS: APIXAB 2.5 MG TABLET PO SCH (05:59)
[2021-04-23] MEDS: INSULIN REGULAR, HUMAN 100 UNIT/1 ML SQ SCH ×3 (07:30→16:30)
[2021-04-23] MEDS: SUCRALFATE 1 GM TAB PO SCH ×2 (08:30→12:30)
[2021-04-23 08:35] VITALS: BP 125/56
[2021-04-23 09:00] VITALS: BP 125/56
[2021-04-23] MEDS: MIDODRINE HCL 5 MG TABLET PO SCH ×2 (09:00→12:30)
[2021-04-23] MEDS: CEFEPIME 1 GM in SODIUM CHLORIDE 0.9% 50ML 50 ML IV SCH (09:57)
[2021-04-23] MEDS: FERROUS SULFATE 325 MG TAB PO SCH (09:57)
[2021-04-23] MEDS: DOCUSATE SODIUM 100 MG CAP PO SCH (09:57)
[2021-04-23] MEDS: LACTULOSE SYRUP 20 GM/30 ML UDC PO SCH (09:57)
[2021-04-23] MEDS: DIGOXIN 0.125 MG TAB PO SCH (09:57)
[2021-04-23] MEDS: AMIODARONE HCL 200 MG TAB PO SCH (09:57)
[2021-04-23] MEDS: DULOXETINE HCL 30 MG DELAYED RELEASE PO SCH (09:57)
[2021-04-23] MEDS: SODIUM BICARBONATE 650 MG TAB PO SCH (09:58)
[2021-04-23] MEDS: PANTOPRAZOLE SOD 40 MG TABEC PO SCH (09:58)
[2021-04-23] MEDS: CLOPIDOGREL BISULFATE 75 MG TAB PO SCH (09:58)
[2021-04-23] MEDS: MULTIVITAMINS/MINERALS TAB PO SCH (09:58)
[2021-04-23] MEDS: ASCORBIC ACID 500 MG TAB PO SCH (09:58)
[2021-04-23] MEDS: METOPROLOL TARTRATE 25 MG TAB PO SCH (09:58)
[2021-04-23] MEDS: LINEZOLID 600 MG TAB PO SCH (09:58)
[2021-04-23] MEDS: FINASTERIDE 5 MG TAB PO SCH (09:58)
[2021-04-23] MEDS: IRON SUCROSE 100 MG in SODIUM CHLORIDE 0.9% 100 ML 100 ML IV SCH (09:59)
[2021-04-23 12:06] VITALS: BP 107/65
[2021-04-23 16:11] VITALS: BP 104/45
== END 2021-04-23 17:47 | DRG 698 ==
LOC: ER 17:06 → ERHOLD 18:31 → IMCU 20:32 → MED/SURG2 04-20 15:21
PROVIDERS: ADMIT Internal Medicine; ATTEND Internal Medicine
PROC: 30243N1 Transfusion of Nonautologous Red Blood Cells into Central Vein, Percutaneous Approach (ICD-10-PCS; principal; 2021-04-16)
PROC: 02HV33Z Insertion of Infusion Device into Superior Vena Cava, Percutaneous Approach (ICD-10-PCS; 2021-04-16)
PROC: 0T9B30Z Drainage of Bladder with Drainage Device, Percutaneous Approach (ICD-10-PCS; 2021-04-18)
DX: T83.510A Infection and inflammatory reaction due to cystostomy catheter, initial encounter (principal); A41.9 Sepsis, unspecified organism; R65.21 Severe sepsis with septic shock; G93.41 Metabolic encephalopathy; J69.0 Pneumonitis due to inhalation of food and vomit; N17.9 Acute kidney failure, unspecified; N12 Tubulo-interstitial nephritis, not specified as acute or chronic; Z16.24 Resistance to multiple antibiotics; E87.2 Acidosis; E87.1 Hypo-osmolality and hyponatremia; I13.0 Hypertensive heart and chronic kidney disease with heart failure and stage 1 through stage 4 chronic kidney disease, or unspecified chronic kidney disease; E46 Unspecified protein-calorie malnutrition; Z79.01 Long term (current) use of anticoagulants; E11.649 Type 2 diabetes mellitus with hypoglycemia without coma; Z87.11 Personal history of peptic ulcer disease; Z74.09 Other reduced mobility; I25.2 Old myocardial infarction; I49.5 Sick sinus syndrome; I48.0 Paroxysmal atrial fibrillation; Z95.5 Presence of coronary angioplasty implant and graft; N31.9 Neuromuscular dysfunction of bladder, unspecified; B95.62 Methicillin resistant Staphylococcus aureus infection as the cause of diseases classified elsewhere; B96.89 Other specified bacterial agents as the cause of diseases classified elsewhere; R62.7 Adult failure to thrive; Z68.27 Body mass index [BMI] 27.0-27.9, adult; Z95.0 Presence of cardiac pacemaker; L89.150 Pressure ulcer of sacral region, unstageable; D50.9 Iron deficiency anemia, unspecified; D63.8 Anemia in other chronic diseases classified elsewhere; E11.22 Type 2 diabetes mellitus with diabetic chronic kidney disease; N18.30 Chronic kidney disease, stage 3 unspecified; I50.9 Heart failure, unspecified; Z79.899 Other long term (current) drug therapy
CPT/HCPCS: 36415; 36569; 70450; 71045; 80053; 81001; 82270; 82550; 82553; 82607; 82746; 82947; 82948; 83540; 83605; 83930; 83935; 84295; 84300; 84439; 84443; 84466; 84484; 84520; 84550; 85025; 85610; 86850; 86900; 86920; 87040; 87086; 87186; 93005; 93306; 93970; 94799; 97139; 99251; 99285; J0692; J1756; J1815; J1817; J1940; J2185; J2405; J7030; J7040; J7050; J7121; J7799; P9016; U0002